=== PATIENT | female | born 1945 | race Caucasian/White ===

== ENCOUNTER → 2016-07-31 | Outpatient (CLI) | payer MEDICARE, OTHER ==
[2016-06-15 13:20] VITALS: BP 120/47
[~2016-07-31] MED LIST: ASPI81TA2 PO; BENA10TA2 PO; CALC-495 PO; CHOL5000 PO; FURO40TA4 PO; GABA-585 PO; METF10002 PO; METO50TA2 PO; MV,C1TAB19 PO; NAPR500T3 PO; OMEG1CAP6 PO; OMEP40CA5 PO; POTA20TA4 PO; PRAV40TA2 PO; SITA100T PO
--- NOTE | 2016-07-31 14:34 | RAD ---
Chest, 2 views, 07/31/2016: History: Shortness of breath Comparison is made to a study from 02/23/2007. The left ventricle is mildly prominent. There is calcific plaquing and tortuosity of the thoracic aorta. The pulmonary vascularity is normal. No pulmonary infiltrates are seen. There is no evidence of pleural fluid. Moderate spurring is present in the spine. IMPRESSION: 1. Left ventricular enlargement and aortic atherosclerosis. 2. No acute cardiopulmonary abnormality is detected.
== END | disposition home or self-care (01) ==
LOC: RAD 13:46
PROVIDERS: ATTEND Internal Medicine Cardiovascular Disease
DX: I25.10 Atherosclerotic heart disease of native coronary artery without angina pectoris (principal); I70.0 Atherosclerosis of aorta
CPT/HCPCS: 71020

== ENCOUNTER → 2017-01-29 | Outpatient (CLI) | payer MEDICARE, OTHER ==
[2016-06-15 13:20] VITALS: BP 120/47
[~2017-01-29] MED LIST changes: +ASPI-630 PO; -ASPI81TA2 PO; +METF-620 PO; -METF10002 PO
--- NOTE | 2017-01-29 15:43 | RAD ---
Left clavicle, 2 views, 01/29/2017: History: Clavicular lump No fracture or destructive bony lesion is seen. There is mild spurring at the acromioclavicular joint. There is a prominent subacromial spur. There is also mild spurring along the glenoid rim. IMPRESSION: 1. Hypertrophic degenerative change at the left shoulder as described above. 2. No acute bony abnormality is detected.
== END | disposition home or self-care (01) ==
LOC: RAD 14:50
PROVIDERS: ATTEND Nurse Practitioner Adult Health
DX: M89.8X9 Other specified disorders of bone, unspecified site (principal)
CPT/HCPCS: 73000

== ENCOUNTER → 2017-02-19 | Outpatient (CLI) | payer MEDICARE, OTHER ==
[2016-06-15 13:20] VITALS: BP 120/47
--- NOTE | 2017-02-19 14:33 | RAD ---
Radionuclide bone scan, 02/19/2017: History: Breast cancer, left clavicular mass Whole body imaging was performed following an IV injection of 25.0 mCi of technetium 99m MDP. Comparison is made to a study from 07/01/2006. The following findings are delineated: 1. There are photon deficient areas at both knees compatible with the presence of knee prostheses. 2. There is moderately increased activity at the right midfoot level similar to that seen on the previous study. This is likely arthritic in nature. 3. There is a mild thoracolumbar scoliosis. Several small foci of increased activity in the lower thoracic and upper lumbar spine are likely on a degenerative basis. 4. There is mildly increased activity symmetrically at both shoulders compatible with arthritis. 5. Activity the radionuclide about the skeleton the major joints is otherwise unremarkable. IMPRESSION: 1. Arthritic and postsurgical changes as described above. 2. No specific evidence of osseous metastatic disease.
== END | disposition home or self-care (01) ==
LOC: NM 08:52
PROVIDERS: ATTEND Internal Medicine Hematology & Oncology
DX: M89.312 Hypertrophy of bone, left shoulder (principal); C50.912 Malignant neoplasm of unspecified site of left female breast
CPT/HCPCS: 78306; 96374; A9503

== ENCOUNTER → 2017-02-23 | Outpatient (CLI) | payer MEDICARE, OTHER ==
[2016-06-15 13:20] VITALS: BP 120/47
[2017-02-23 10:53] LABS: CALCIUM 8.8 mg/dL (8.5-10.1); CREATININE 1.2 mg/dL (0.6-1.0); GFR 44.3; MAGNESIUM 1.5 mg/dL (1.8-2.4)
== END | disposition home or self-care (01) ==
LOC: LAB 10:06
PROVIDERS: ATTEND Internal Medicine Cardiovascular Disease
DX: I10 Essential (primary) hypertension (principal); I25.10 Atherosclerotic heart disease of native coronary artery without angina pectoris; E78.5 Hyperlipidemia, unspecified
CPT/HCPCS: 36415; 80048; 83735

== ENCOUNTER → 2017-06-10 | Outpatient (CLI) | payer MEDICARE, OTHER ==
[2016-06-15 13:20] VITALS: BP 120/47
[~2017-06-10] MED LIST changes: -METO50TA2 PO; +METO50TA6 PO; -NAPR500T3 PO; +NAPR500T4 PO
--- NOTE | 2017-06-10 16:34 | RAD ---
Bilateral lower extremity arterial ultrasound with JAY measurements, 06/10/2017: History: Calf claudication, peripheral vascular disease Duplex evaluation of the major arteries in both lower extremities was performed including grayscale, color-flow and spectral Doppler analysis. There is mild to moderate scattered atherosclerotic plaquing bilaterally The right common femoral artery demonstrates a triphasic Doppler waveform. There are biphasic Doppler waveforms in the right femoral and popliteal arteries. No significant focal velocity acceleration is seen in those vessels to suggest high-grade stenosis. Patent anterior tibial, peroneal and posterior tibial arteries are present in the right calf demonstrating biphasic Doppler waveforms. The right dorsalis pedis artery is patent demonstrating a biphasic Doppler waveform. On the left, the common femoral artery is patent demonstrating a triphasic Doppler waveform. There is a velocity elevation in the proximal superficial femoral artery in the upper thigh up to 197 cm/s. The femoral and popliteal arteries distal to this level maintain good biphasic Doppler waveforms. The findings suggest only mild stenosis. Patent anterior tibial, posterior tibial and peroneal arteries are present in the left lower leg demonstrating biphasic Doppler waveforms. The left dorsalis pedis artery is also patent demonstrating a biphasic Doppler waveform. Resting JAY measurements of 0.96 on the right and 1.06 on the left were obtained. These values are in the normal range. IMPRESSION: 1. Mild scattered atherosclerotic plaquing in both lower extremities without evidence of high-grade arterial stenosis or occlusive disease. 2. Normal resting JAY measurements bilaterally.
== END | disposition home or self-care (01) ==
LOC: US 10:27
PROVIDERS: ATTEND Podiatrist Foot & Ankle Surgery
DX: I73.9 Peripheral vascular disease, unspecified (principal)
CPT/HCPCS: 93922; 93925

== ENCOUNTER → 2018-04-12 | Outpatient (CLI) | payer MEDICARE, OTHER ==
[2016-06-15 13:20] VITALS: BP 120/47
[~2018-04-12] MED LIST changes: -BENA10TA2 PO; +BENA10TA4 PO; -METF-620 PO; +METF10007 PO; +NAPR-514 PO; -NAPR500T4 PO
--- NOTE | 2018-04-12 14:26 | KCIC ---
MR of the left shoulder Indication: Right shoulder pain and paresthesia. Anterior shoulder tenderness. Supraclavicular mass with adhesions to the skin. Technique: Standard multiplanar sequences are obtained. Findings: Artifact: No significant image degradation. Acromioclavicular joint: Mildly degenerative. Rotator cuff: * Supraspinatus-infraspinatus tendon: Full-thickness tear of the supraspinatus tendon measures about 5 mm AP diameter at least 1 cm retraction. Diffuse thinning of the remaining supraspinatus tendon. * Subscapularis tendon: Tendinosis with partial tear. * Muscle bulk: Moderate atrophy * Subacromial subdeltoid bursa: Small effusion. Fluid: Small glenohumeral effusion. Glenohumeral cartilage: Primary osteoarthritis with severe cartilage thinning. Labrum: Posterosuperior labral degeneration/tearing. Biceps tendon: Tendinosis Bones: No lesion or acute fracture. Soft tissue: Soft tissue mass just superior to the mid clavicle, measures 2.7 cm wide by 2.9 cm AP by 2.7 cm height. Has a solid appearance. Superiorly extends to near the skin surface. Deep aspect broadly contacts the clavicular cortex but there is no evidence of clavicular bone destruction or edema. The mass also contacts the surface of the margin of the trapezius muscle. There is thickening of the overlying skin. A very thin plane of subcutaneous fat separates the mass from the skin thickening. Note that the surface marker placed at the area of concern corresponds with the location of this mass. Impression: 1. Soft tissue mass superior to the mid clavicle. Nonspecific, but malignant etiologies including metastatic disease or soft tissue sarcoma are considerations. Thickening of the overlying skin. 2. Rotator cuff tendinosis. Tearing of the supraspinatus tendon with a small full-thickness component. Partial subscapularis tendon tear. 3. Severe primary osteoarthritis. 4. Posterosuperior labral degeneration/tear. Electronically signed by: Russell Sosa MD (04/12/2018 2:23 PM) [facility]
== END | disposition home or self-care (01) ==
LOC: KCIC MRI 12:26
PROVIDERS: ATTEND Family Medicine
DX: R22.1 Localized swelling, mass and lump, neck (principal); M19.011 Primary osteoarthritis, right shoulder; M75.101 Unspecified rotator cuff tear or rupture of right shoulder, not specified as traumatic; M62.511 Muscle wasting and atrophy, not elsewhere classified, right shoulder
CPT/HCPCS: 73221

== ENCOUNTER → 2018-04-21 | Outpatient (CLI) | payer MEDICARE, OTHER ==
[2016-06-15 13:20] VITALS: BP 120/47
--- NOTE | 2018-04-21 10:59 | RAD ---
FDG tumor localization scan, PET/CT, 04/21/2018: History: Shoulder mass Following IV injection of 13.3 mCi of 18 F-FDG, imaging was performed from the skull base to the proximal thighs. The noncontrast CT component was performed for attenuation correction and anatomic localization purposes rather than for primary diagnosis. The patient's blood glucose level at the time of injection was 186 MG/DL. The study is partially compromised by multiple artifacts. There is an irregular 3.3 cm soft tissue mass in the left supraclavicular region. It is hypermetabolic with a maximum SUV of 11.1. Physiologic activity is present in the neck. No other neck abnormality is evident. No hypermetabolic mediastinal or pulmonary process is seen. Both breasts are surgically absent. Normal GI tract and urinary tract activity is present in the abdomen and pelvis. No hypermetabolic abdominal or pelvic lesion is seen. Incidental CT findings include the presence of a lap band type device related to the proximal stomach. There is moderate sigmoid diverticulosis. The uterus appears to be surgically absent. There is moderate calcific plaquing of the aorta and its branches including the coronary arteries. Calcific plaquing is present at the carotid bifurcations. Moderate degenerative change is present at both shoulders and at multiple levels in the spine. IMPRESSION: 1. Hypermetabolic left supraclavicular mass, most likely representing metastatic disease in this patient with a history of breast cancer. 2. No other significant FDG-PET abnormality is detected.
== END | disposition home or self-care (01) ==
LOC: PETSC 08:11
PROVIDERS: ATTEND Family Medicine
DX: R22.1 Localized swelling, mass and lump, neck (principal); K57.30 Diverticulosis of large intestine without perforation or abscess without bleeding; Z85.3 Personal history of malignant neoplasm of breast
CPT/HCPCS: 78815; A9552

== ENCOUNTER 2018-04-26 08:29 | Outpatient (CLI) | payer MEDICARE, OTHER ==
[~2018-04-26] VITALS: Ht 167.6 cm; Wt 129.3 kg
[2018-04-26] VITALS (8 sets, daily range): BP systolic 109–146; BP diastolic 44–63
[2018-04-26] MEDS ORDERED: GLIM2TAB2 PO (08:36)
[2018-04-26 08:46] LABS: BASO # 0.1 x10^3/uL (0.0-0.2); BASO % 1 % (0-3); EOS # 0.4 x10^3/uL (0.0-0.7); EOS % 4 % (0-3); HEMOGLOBIN 12.7 g/dL (12.0-15.5); LYMPH # 2.3 x10^3/uL (1.0-4.8); LYMPH % 18 % (24-48); MEAN CORPUSCULAR HEMOGLOBIN 30 pg (25-35); MEAN CORPUSCULAR HGB CONC 33 g/dL (31-37); MEAN CORPUSCULAR VOLUME 91 fL (79-100); MONO # 0.8 x10^3/uL (0.0-1.1); MONO % 6 % (0-9); NEUT # 8.8 x10^3uL (1.8-7.7); NEUT % 71 % (31-73); PLATELET COUNT 323 x10^3/uL (140-400); RED BLOOD COUNT 4.19 x10^6/uL (3.50-5.40); RED CELL DISTRIBUTION WIDTH 14.8 % (11.5-14.5); WHITE BLOOD COUNT 12.4 x10^3/uL (4.0-11.0)
[2018-04-26 08:52] LABS: CALCIUM 8.6 mg/dL (8.5-10.1); CREATININE 1.4 mg/dL (0.6-1.0); POTASSIUM 4.7 mmol/L (3.5-5.1)
[2018-04-26 08:58] LABS: ALBUMIN 2.9 g/dL (3.4-5.0); ALBUMIN/GLOBULIN RATIO 0.7 (1.0-1.7); TOTAL BILIRUBIN 0.5 mg/dL (0.2-1.0); TOTAL PROTEIN 7.1 g/dL (6.4-8.2)
[2018-04-26] MEDS ORDERED: LIDOCAINE WITH 8.4% SOD BICARB 3 ML DISP.SYRIN. ONE (09:10)
[2018-04-26] MEDS ORDERED: MIDAZOLAM HCL/PF 2 MG/2 ML VIAL. ONE (09:24)
[2018-04-26] MEDS ORDERED: fentaNYL PF VIAL 100 MCG/2 ML VIAL ONE (09:25)
[2018-04-26] MEDS ORDERED: MIDAZOLAM HCL/PF 2 MG/2 ML VIAL. IV ONE (09:45)
[2018-04-26] MEDS ORDERED: LIDOCAINE WITH 8.4% SOD BICARB 3 ML DISP.SYRIN. IJ ONE (09:45)
[2018-04-26] MEDS ORDERED: fentaNYL PF VIAL 100 MCG/2 ML VIAL IV ONE (09:45)
--- NOTE | 2018-04-26 09:47 | PDOC ---
MODERATE SEDATION ASSESSMENT RISKS/ALTERNATIVES Risks/Alternatives Risks and alternatives of this type of sedation and procedure discussed with: RISK/ALTERNATIVES: Patient H & P ON CHART H & P H & P on chart and reviewed for co-morbid conditions and appropriate labs. H&P ON CHART: Yes STATUS PREG STATUS ASSESSED: Yes MEDS/ALLERGIES REVIEWED Meds/Allergies Reviewed Medications and Allergies including time and route of recently administered narcotics and sedatives. MEDS/ALLERGIES REVIEWED: Yes ASA RATING ASA RATING: II AIRWAY ASSESSMENT Airway Assessment Airway patency, oral function limitations, presence of caps, crowns, dentures, partials, and ability to extend neck assessed. AIRWAY ASSESSMENT: Yes MALLAMPATI SCORE MALLAMPATI SCORE: II PRE-SEDATION ASSESSMENT PRE-SEDATION ASSESSMENT: Yes DIANE MCARTHUR MD Apr 26, 2018 09:47
--- NOTE | 2018-04-26 09:48 | PDOC1 ---
History and Physical Date of Procedure Date of Admission History of Present Illness Reason for Visit H/o breast cancer with enlarging left supraclavicular mass Past Medical History Past Medical History see nursing pre-op assessment Current Medications Current Medications Current Medications Lidocaine/Sodium Bicarbonate (Buffered Lidocaine 1%) 3 ml STK-MED ONCE .ROUTE ; Start 04/26/18 at 09:10; Stop 04/26/18 at 09:11; Status DC Midazolam HCl (Versed) 2 mg STK-MED ONCE .ROUTE ; Start 04/26/18 at 09:24; Stop 04/26/18 at 09:25; Status DC Fentanyl Citrate (Fentanyl 2ml Vial) 100 mcg STK-MED ONCE .ROUTE ; Start at 09:25; Stop 04/26/18 at 09:26; Status DC Lidocaine/Sodium Bicarbonate (Buffered Lidocaine 1%) 1 ml 1X ONCE IJ Last administered on 04/26/18at 09:44; Start 04/26/18 at 09:45; Stop 04/26/18 at 09 :46 Midazolam HCl (Versed) 1 mg 1X ONCE IV Last administered on 04/26/18at 09:45; Start 04/26/18 at 09:45; Stop 04/26/18 at 09:46 Fentanyl Citrate (Fentanyl 2ml Vial) 50 mcg 1X ONCE IV Last administered on at 09:44; Start 04/26/18 at 09:45; Stop 04/26/18 at 09:46; Status UNV Active Scripts Active Reported Glimepiride 2 Mg Tablet 1 Tab PO DAILY Calcium 600 + Vit D 800 Tab (Calcium Carbonate/Vitamin D3) 1 Each Tablet 1 Each PO DAILY Fish Oil 1,000 Mg Capsule ([place]-3 Fatty Acids/Fish Oil) 1 Each Capsule 1 Each PO DAILY Vitamin D3 (Cholecalciferol (Vitamin D3)) 5,000 Unit Capsule 2,000 Unit PO DAILY Multi For Her Tablet (Mv,Ca,Min/Iron Fum/Fa/Vit K) 1 Each Tablet 1 Each PO DAILY Naproxen 500 Mg Tablet 500 Mg PO BID Aspirin 81 Mg Tab.chew 81 Mg PO DAILY Benazepril Hcl 10 Mg Tablet 10 Mg PO DAILY Metformin Hcl 1,000 Mg Tablet 1,000 Mg PO BID may resume 06/17/16 with the evening dose. Furosemide 40 Mg Tablet 40 Mg PO DAILY Klor-Con M20 (Potassium Chloride) 20 Meq Tab.er.prt 20 Meq PO DAILY Pravastatin Sodium 40 Mg Tablet 1 Tab PO QHS Gabapentin 100 Mg Capsule 300 Mg PO DAILY 2 morning/1 night Metoprolol Tartrate 50 Mg Tablet 50 Mg PO BID Omeprazole 40 Mg Capsule.dr 40 Mg PO DAILY Allergies Allergies: Coded Allergies: Sulfa (Sulfonamide Antibiotics) (Verified Allergy, Intermediate, 04/26/18) codeine (Verified Allergy, Intermediate, 10/04/14) Physical Exam Vital Signs Vital Signs Date Time Temp Pulse Resp B/P (MAP) Pulse Ox O2 Delivery O2 Flow Rate FiO2 04/26/18 09:44 14 94 2.0 04/26/18 09:36 76 Nasal Cannula 04/26/18 08:41 98.1 146/61 (89) 98.1 Other see nursing pre-op assessment Assessment Assessment breast cancer and supraclavicular mass - left Plan Plan US biopsy of supraclavicular mass DIANE MCARTHUR MD Apr 26, 2018 09:48
--- NOTE | 2018-04-26 09:49 | PDOC ---
BRIEF OPERATIVE NOTE Pre-Op Diagnosis left supraclavicular mass Post-Op Diagnosis same Procedure Performed US biopsy Surgeon Scottie Anesthesia Type: Conscious Sedation Specimens Obtained 5 x 18g cores Complications No immediate DIANE MCARTHUR MD Apr 26, 2018 09:49
--- NOTE | 2018-04-26 14:00 | RAD ---
Procedure: Ultrasound guided left supraclavicular biopsy Clinical Indication: 72-year-old female with history of breast cancer, enlarging left supraclavicular soft tissue mass Sedation: Conscious sedation was administered with a total intraprocedural [id number]-[id number] time of 13 minutes. The patient was monitored by a qualified independent observer throughout the time of sedation. Please refer to the medical record for exact doses of medications utilized to achieve moderate sedation. Antibiotics: None Sterility: The procedure was performed in its entirety using appropriate elements of sterile technique. Consent: The procedure was explained in its entirety to the patient or the patients designated veterans contact representative by a member of the treatment team, including a discussion of the risks, benefits and commonly accepted alternatives to the procedure, as well as the expected consequences of no therapy whatsoever. Discussion of the risks included, but was not limited to, those that are most frequent and those that are rare but possibly severe or life-threatening, as well as the possibility of unforeseen complications. Technique and Findings: Following informed consent, the patient was prepped and draped in usual sterile fashion. 1% lidocaine was used to achieve local anesthesia over the left supra clavicular soft tissue mass. A small dermatotomy was made. Under ultrasound guidance, an 18-gauge needle was advanced into the soft tissue mass and 5 separate core biopsy specimens were obtained and divided between formalin and RPMI. Hemostasis was achieved with annual compression following removal of the needle. Complications: No immediate Impression: 1. Ultrasound-guided biopsy of a left supraclavicular mass as described
--- NOTE | 2018-04-28 16:09 | PATHOLOGY ---
[facility] Accession Number: [id number] . 01 Material submitted: . LEFT SUPRACLAVICULAR MASS . 01 Clinical history: . Left supraclavicular mass . 02 Diagnosis: Fibroadipose tissue, left supraclavicular mass needle biopsies: - METASTATIC ADENOCARCINOMA, MODERATELY TO POORLY DIFFERENTIATED. SEE COMMENT. (JPM:zaria/pit; 04/27/2018) QMS/04/28/2018 . 02 Comment: Sections of the left supraclavicular mass needle biopsies reveal a malignant epithelial neoplasm involving segments of fibroadipose tissue. There is no obvious lymph node tissue identified. The malignant cells are present in irregular solid nests and focally appear to show acinar formation. The malignant cells have modest amounts of eosinophilic cytoplasm and possess rounded to ovoid hyperchromatic nuclei showing moderate to focal marked nuclear pleomorphism. A limited panel of immunoperoxidase stains is obtained and yields the following results: . Cytokeratin 7: Tumor cells strongly positive. Cytokeratin 20: Tumor cells negative: TTF-1: Tumor cells negative. BCA-225: Rare tumor cell weakly positive. GCDFP-15: Tumor cells negative. Mammaglobin: Tumor cells negative. . The morphologic and immunophenotypic findings are supportive of the diagnosis of metastatic moderately to poorly differentiated adenocarcinoma and are consistent with breast origin. . The case is also examined by Dr. Menjivar, who concurs with the diagnosis. (JPM:zaria/pit; 04/27/2018) . Special stains performed: Immunoperoxidase for CK7, CK20, TTF-1, BCA-225, GCDFP-15 and mammaglobin. . 02 Electronically signed: . Jus Rea MD, Pathologist NPI- [id number] . 01 Gross description: . The specimen is received in formalin, labeled "Chastity Doherty, left supraclavicular mass" and consists of multiple needle cores of dent tissue measuring 1.9 x 0.6 x 0.1 cm in aggregate which are entirely submitted in A1. (SDY; 04/26/2018) SYU/SYU . 02 Microscopic: . . . 02 Pathologist provided ICD-10: C79.89 . 02 CPT . 369106, B20033, [id number] Specimen Comment: A courtesy copy of this report has been sent to Specimen Comment: [phone], , . Specimen Comment: Report sent to ,DR DEVINE / DR FINE Performed at: 01 [facility] [address], [place] [id number] MD German Wiggins MD Phone: [phone] Performed at: 02 [facility] [address] [place], [place] [id number] MD Jus Rea MD Phone: [phone]
[2018-05-12] MEDS ORDERED: HYDR-2758 PO (08:27)
[2018-05-12] MEDS ORDERED: BENA20TA4 PO (08:41)
[2018-05-12] MEDS ORDERED: ASPI81TA50 PO (08:41)
== END 2018-04-26 11:05 | disposition home or self-care (01) ==
LOC: INTRAD 08:29
PROVIDERS: ATTEND Internal Medicine Hematology & Oncology
DX: M79.89 Other specified soft tissue disorders (principal); Z88.1 Allergy status to other antibiotic agents; Z88.5 Allergy status to narcotic agent; Z85.3 Personal history of malignant neoplasm of breast; Z79.899 Other long term (current) drug therapy
CPT/HCPCS: 20206; 36415; 76942; 80053; 85025; 85610; 99152; J2250; J3010; 88305; 88341; 88342

== ENCOUNTER 2018-07-19 06:52 | Outpatient (CLI) | payer MEDICARE, OTHER ==
[~2018-07-19] VITALS: Ht 165.1 cm; Wt 131.5 kg
[~2018-07-19 06:52] MED LIST changes: +ASPI81TA50 PO; -BENA10TA4 PO; +BENA10TA6 PO; +BENA20TA4 PO; +GLIM2TAB2 PO; +HYDR-2761 PO
[2018-07-19] MEDS ORDERED: OMEP40CA5 PO (07:16)
[2018-07-19 07:21] LABS: BASO # 0.1 x10^3/uL (0.0-0.2); BASO % 1 % (0-3); EOS # 0.3 x10^3/uL (0.0-0.7); EOS % 3 % (0-3); HEMATOCRIT 37.3 % (36.0-47.0); HEMOGLOBIN 12.5 g/dL (12.0-15.5); LYMPH # 1.4 x10^3/uL (1.0-4.8); LYMPH % 14 % (24-48); MEAN CORPUSCULAR HEMOGLOBIN 31 pg (25-35); MEAN CORPUSCULAR HGB CONC 34 g/dL (31-37); MEAN CORPUSCULAR VOLUME 91 fL (79-100); MONO # 0.7 x10^3/uL (0.0-1.1); MONO % 7 % (0-9); NEUT # 7.6 x10^3uL (1.8-7.7); NEUT % 76 % (31-73); PLATELET COUNT 284 x10^3/uL (140-400); RED BLOOD COUNT 4.09 x10^6/uL (3.50-5.40); RED CELL DISTRIBUTION WIDTH 15.7 % (11.5-14.5)
[2018-07-19] MEDS ORDERED: ceFAZolin SODIUM 3 GM in IV DEXTROSE 5% 100ML 100 ML IV ONE (07:30)
[2018-07-19 07:35] LABS: CALCIUM 8.8 mg/dL (8.5-10.1); CREATININE 1.2 mg/dL (0.6-1.0); GFR 44.2; POTASSIUM 4.3 mmol/L (3.5-5.1)
[2018-07-19 07:37] VITALS: BP 122/49
[2018-07-19 07:38] LABS: PROTHROMBIN TIME PATIENT 13.8 SEC (11.7-14.0)
[2018-07-19 07:41] LABS: ALBUMIN 2.7 g/dL (3.4-5.0); ALBUMIN/GLOBULIN RATIO 0.6 (1.0-1.7); TOTAL BILIRUBIN 0.4 mg/dL (0.2-1.0); TOTAL PROTEIN 6.9 g/dL (6.4-8.2)
[2018-07-19] MEDS ORDERED: LIDOCAINE 1%/EPI 1:100,000 20 ML VIAL. ONE (07:52)
[2018-07-19] MEDS ORDERED: MIDAZOLAM HCL/PF 2 MG/2 ML VIAL. ONE (08:27)
[2018-07-19] MEDS ORDERED: fentaNYL PF VIAL 100 MCG/2 ML VIAL ONE (08:27)
[2018-07-19] MEDS ORDERED: fentaNYL PF VIAL 100 MCG/2 ML VIAL IV ONE (08:45)
[2018-07-19] MEDS ORDERED: MIDAZOLAM HCL/PF 2 MG/2 ML VIAL. IV ONE (08:45)
[2018-07-19] MEDS ORDERED: LIDOCAINE 1%/EPI 1:100,000 20 ML VIAL. IJ ONE (08:45)
[2018-07-19 09:02] VITALS: BP 134/62
[2018-07-19 09:10] VITALS: BP 140/68
[2018-07-19 09:25] VITALS: BP 135/50
[2018-07-19 09:40] VITALS: BP 85/55
[2018-07-19 10:00] VITALS: BP 108/84
--- NOTE | 2018-07-19 10:17 | NUR ---
Pt discharged via wheelchair with spouse. Instructions and education reviewed with patient including medications, site care, s/s requiring further attention, and follow up. Education materials given to patient include port placement and post sedation. IV removed, patient states v/u of all instructions.
--- NOTE | 2018-07-19 11:23 | RAD ---
Procedure: Ultrasound and fluoroscopically guided placement of right internal jugular power port.. 07/19/2018 11:18 AM Clinical Indication: BREAST CA Sedation: Conscious sedation was administered for 30 minutes. The patient was monitored by a qualified independent observer throughout the time of sedation. Please refer to the medical record for exact doses of medications utilized to achieve moderate sedation. Fluoroscopy time: 0.6 minutes Dose area product: 4 Gycm2 Consent: The procedure was explained in its entirety to the patient or the patients designated human resources representative by a member of the treatment team, including a discussion of the risks, benefits and commonly accepted alternatives to the procedure, as well as the expected consequences of no therapy whatsoever. Discussion of the risks included, but was not limited to, those that are most frequent and those that are rare but possibly severe or life-threatening, as well as the possibility of unforeseen complications. Technique and Findings: All elements of maximal sterile barrier technique including the use of a cap, mask, sterile gown, sterile gloves, large sterile sheet, appropriate hand hygiene, and 2% chlorhexidine for cutaneous antisepsis (or acceptable alternative antiseptic per current guidelines) were followed for this procedure. Following informed consent, and a timeout procedure, the patient was prepped and draped in the usual sterile fashion. Ultrasound interrogation of the right neck revealed patency and compressibility of the right internal jugular vein. A 21-gauge micropuncture was then used to gain access to this vein under ultrasound guidance. A hard copy ultrasound image was recorded. The needle was exchanged over a wire for a sheath. A 1 inch incision was made several centimeters inferior to the venotomy site. A catheter was tunneled from this site dermatotomy site in the neck. Catheter was advanced through peel-away sheath such that its tip was in the proximal right atrium with the patient supine. The catheter was trimmed to length and connected to the port reservoir. The port was found to flush and aspirate normally. The wound was closed in layers using 4-0 Vicryl suture. Sterile dressings were applied. Impression: Successful ultrasound and fluoroscopically guided placement of a right internal jugular PowerPort
[2018-07-30] MEDS ORDERED: IPRA0.2S5 NEB (09:05)
[2018-07-30] MEDS ORDERED: BENZ100C PO (09:05)
[2018-07-30] MEDS ORDERED: AMOX1TAB61 PO (09:05)
== END 2018-07-19 10:15 | disposition home or self-care (01) ==
LOC: INTRAD 06:52
PROVIDERS: ATTEND Internal Medicine Hematology & Oncology
DX: C50.812 Malignant neoplasm of overlapping sites of left female breast (principal); Z88.2 Allergy status to sulfonamides; Z88.5 Allergy status to narcotic agent; Z17.1 Estrogen receptor negative status [ER-]; Z79.01 Long term (current) use of anticoagulants; Z79.82 Long term (current) use of aspirin; Z79.899 Other long term (current) drug therapy
CPT/HCPCS: 36415; 36561; 76937; 77001; 80053; 85025; 85610; 99152; 99153; C1788; C1892; J0690; J2250; J3010; J3490; C1751

== ENCOUNTER 2018-09-16 11:57 | Inpatient (IN) | payer MEDICARE, OTHER ==
[~2018-09-16] VITALS: Ht 170.2 cm; Wt 128.6 kg
[~2018-09-16 11:57] MED LIST changes: +AMOX1TAB61 PO; +BENA10TA4 PO; -BENA10TA6 PO; +BENZ100C PO; +IPRA0.2S5 NEB
--- NOTE | 2018-09-16 12:26 | PHYS DOC ---
Past Medical History Past Medical History: Cancer, Diabetes-Type II, High Cholesterol, Hypertension Additional Past Medical Histor: TORN ROTATOR CUFF RIGHT SIDE Past Surgical History: Appendectomy, Cholecystectomy, Hysterectomy Additional Past Surgical Histo: BILATERAL MASTECTOMY Alcohol Use: None Drug Use: None Adult General Chief Complaint Chief Complaint: HYPOTENSION HPI HPI Patient is a 73 year old female with history of breast cancer metastatic with a double mastectomy status post chemotherapy last dose last week referred in from oncology clinic blood pressure 72/38 has felt lightheaded the last 2 or 3 days hemoglobin 12.1 yesterday no fever in the clinic as BP normally runs 100- 120 according to the oncology clinic provider that called me. Patient has had some mild nausea and decreased by mouth intake just not hungry no chest pain no abdominal pain does have chronic back pain which is unchanged Review of Systems Review of Systems Constitutional: Eyes: Denies change in visual acuity, redness, or eye pain [] HENT: Denies nasal congestion or sore throat [] Respiratory: Denies cough or shortness of breath [] Cardiovascular: No additional information not addressed in HPI []neg for nausea , vomiting, bloody stools or diarrhea [] : Denies dysuria or hematuria [] Neurologic: mild intermittent h/a Endocrine: Denies polyuria or polydipsia [] All other systems were reviewed and found to be within normal limits, except as documented in this note. Current Medications Current Medications Current Medications Medications (Trade) Dose Ordered Sig/Lily Start Time Stop Time Status Last Admin Dose Admin Sodium Chloride 1,000 ml @ 1,000 mls/hr 1X ONCE 09/16/18 12:30 09/16/18 13:29 DC 09/16/18 12:55 1,000 MLS/HR Allergies Allergies Allergies Coded Allergies Type Severity Reaction Last Updated Verified Sulfa (Sulfonamide Antibiotics) Allergy Intermediate 04/26/18 Yes codeine Allergy Intermediate 10/04/14 Yes Physical Exam Physical Exam Constitutional: Well developed, well nourished, no acute distress, non-toxic appearance. [] HENT: Normocephalic, atraumatic, bilateral external ears normal, oropharynx moist, no oral exudates, nose normal. [] Eyes: PERRLA, EOMI, conjunctiva normal, no discharge. [] Neck: Normal range of motion, no tenderness, supple, no stridor. [] Cardiovascular:Heart rate regular rhythm, no murmur [] Lungs & Thorax: DECREASED BREATH SOUNDS B/L BASES Abdomen: Bowel sounds normal, soft, no tenderness, no masses, no pulsatile masses. [] Skin: Warm, dry, no erythema, no rash. [] the port site looks fine Back: No tenderness, no CVA tenderness. [] Extremities: No tenderness, no cyanosis, no clubbing, ROM intact, no edema. [] Neurologic: Alert and oriented X 3, normal motor function, normal sensory function, no focal deficits noted. [] Psychologic: Affect normal, judgement normal, mood normal. [] Current Patient Data Vital Signs Vital Signs Date Time Temp Pulse Resp B/P (MAP) Pulse Ox O2 Delivery O2 Flow Rate FiO2 09/16/18 13:07 80 111/53 (72) 93 Room Air 09/16/18 11:57 97.7 18 97.7 Lab Values Laboratory Tests Test 09/16/18 12:55 White Blood Count 4.2 x10^3/uL (4.0-11.0) Red Blood Count 3.64 x10^6/uL (3.50-5.40) Hemoglobin 11.2 g/dL (12.0-15.5) L Hematocrit 34.1 % (36.0-47.0) L Mean Corpuscular Volume 94 fL (79-100) Mean Corpuscular Hemoglobin 31 pg (25-35) Mean Corpuscular Hemoglobin Concent 33 g/dL (31-37) Red Cell Distribution Width 15.5 % (11.5-14.5) H Platelet Count 362 x10^3/uL (140-400) Neutrophils (%) (Auto) 66 % (31-73) Lymphocytes (%) (Auto) 15 % (24-48) L Monocytes (%) (Auto) 8 % (0-9) Eosinophils (%) (Auto) 9 % (0-3) H Basophils (%) (Auto) 1 % (0-3) Neutrophils # (Auto) 2.8 x10^3uL (1.8-7.7) Lymphocytes # (Auto) 0.6 x10^3/uL (1.0-4.8) L Monocytes # (Auto) 0.3 x10^3/uL (0.0-1.1) Eosinophils # (Auto) 0.4 x10^3/uL (0.0-0.7) Basophils # (Auto) 0.1 x10^3/uL (0.0-0.2) Prothrombin Time 15.1 SEC (11.7-14.0) H Prothrombin Time INR 1.2 (0.8-1.1) H Sodium Level 141 mmol/L (136-145) Potassium Level 4.1 mmol/L (3.5-5.1) Chloride Level 101 mmol/L (98-107) Carbon Dioxide Level 28 mmol/L (21-32) Anion Gap 12 (6-14) Blood Urea Nitrogen 23 mg/dL (7-20) H Creatinine 1.4 mg/dL (0.6-1.0) H Estimated GFR (Cockcroft-Gault) 36.9 BUN/Creatinine Ratio 16 (6-20) Glucose Level 133 mg/dL (70-99) H Lactic Acid Level 4.0 mmol/L (0.4-2.0) *H Calcium Level 8.9 mg/dL (8.5-10.1) Total Bilirubin 0.3 mg/dL (0.2-1.0) Aspartate Amino Transferase (AST) 17 U/L (15-37) Alanine Aminotransferase (ALT) 16 U/L (14-59) Alkaline Phosphatase 57 U/L (46-116) Creatine Kinase 23 U/L (26-192) L Troponin I Quantitative < 0.017 ng/mL (0.000-0.055) Total Protein 6.4 g/dL (6.4-8.2) Albumin 2.5 g/dL (3.4-5.0) L Albumin/Globulin Ratio 0.6 (1.0-1.7) L Lipase 169 U/L (73-393) Procalcitonin < 0.10 ng/mL (0.00-0.10) Influenza Type A Antigen Negative (NEGATIVE) Influenza Type B Antigen Negative (NEGATIVE) Laboratory Tests 09/16/18 12:55 Laboratory Tests 09/16/18 12:55 EKG EKG []EKG shows a normal sinus rhythm rate of RBBBt block rate of 76 no STEMI in light of that. Radiology/Procedures Radiology/Procedures [] Impressions: ATELECTATIS PER RADIOLOGY MY READ OVERALL PRETTY SIMILAR TO RECENT XRAY WITH PNA Course & Med Decision Making Course & Med Decision Making Pertinent Labs and Imaging studies reviewed. (See chart for details) []73 yo f with hx of breast cancer s/p double mastectomy on chemo p/w lightheadedness bp 72 syst in clinic here 111 while lying flat feels asymptomatic, sounds orthostatic get septic workup iv fluids, will reassess FINAL PLAN LACTIC ELEV BUT PT IS FAIRLY ASYMPTOMTIC IN ER, BP IN 110'S FOR THE MOST PART CXR BORDERLINE WILL GIVE ABX GIVEN LACTIC AND HER HISTORY D/W FULBRIGHT WILL ADMIT FOR ABX AND FLUIDS. Dragon Disclaimer Dragon Disclaimer This electronic medical record was generated, in whole or in part, using a voice recognition dictation system. Departure Departure Impression: Primary Impression: Lactic acidosis Disposition: ADMITTED INPATIENT Admitting Physician: Javier Cardoso Condition: STABLE Referrals: GLENIS DEVINE MD (PCP) CAMMY HUMPHREY MD Sep 16, 2018 12:26
--- NOTE | 2018-09-16 12:26 | EKG ---
[facility] [address] [place] [address] Test Date: 2018-09-16 Test Time: 12:13:44 Pat Name: BRITT LAMBERT Department: Room: Gender: F Bottom Painter: : 1945 Requested By: CAMMY HUMPHREY Order Number: [id number] Reading MD: Mac Romo MD Measurements Intervals Finger Rate: 76 P: -17 MI: 188 QRS: -33 QRSD: 138 T: -7 QT: 402 QTc: 452 Interpretive Statements SINUS RHYTHM RBBB Electronically Signed On 09-22-2018 13:55:50 CDT by Mac Romo MD
[2018-09-16] MEDS ORDERED: IV NORMAL SALINE 1000ML BAG 1,000 ML IV ONE ×2 (12:30→14:45)
--- NOTE | 2018-09-16 12:48 | RAD ---
EXAM: Chest, single view. HISTORY: Shortness of breath. Weakness. COMPARISON: 07/29/2018 FINDINGS: A frontal view of the chest is obtained. There has been slight interval decrease in previously demonstrated interstitial opacity. There is suspected basilar atelectasis. There is no pleural effusion or pneumothorax. There is a stable prominent cardiac silhouette. There is a right chest wall port catheter in expected position. IMPRESSION: Suspected bilateral lower lobe atelectasis. Electronically signed by: Lorena Felix MD (09/16/2018 12:45 PM) [id number]
[2018-09-16 13:19] LABS: BASO # 0.1 x10^3/uL (0.0-0.2); BASO % 1 % (0-3); EOS # 0.4 x10^3/uL (0.0-0.7); EOS % 9 % (0-3); HEMATOCRIT 34.1 % (36.0-47.0); HEMOGLOBIN 11.2 g/dL (12.0-15.5); LYMPH # 0.6 x10^3/uL (1.0-4.8); LYMPH % 15 % (24-48); MEAN CORPUSCULAR HEMOGLOBIN 31 pg (25-35); MEAN CORPUSCULAR HGB CONC 33 g/dL (31-37); MEAN CORPUSCULAR VOLUME 94 fL (79-100); MONO # 0.3 x10^3/uL (0.0-1.1); MONO % 8 % (0-9); NEUT # 2.8 x10^3uL (1.8-7.7); NEUT % 66 % (31-73); PLATELET COUNT 362 x10^3/uL (140-400); RED BLOOD COUNT 3.64 x10^6/uL (3.50-5.40); RED CELL DISTRIBUTION WIDTH 15.5 % (11.5-14.5); WHITE BLOOD COUNT 4.2 x10^3/uL (4.0-11.0)
[2018-09-16 13:28] LABS: CALCIUM 8.9 mg/dL (8.5-10.1); CREATININE 1.4 mg/dL (0.6-1.0); GFR 36.9; POTASSIUM 4.1 mmol/L (3.5-5.1)
[2018-09-16 13:34] LABS: ALBUMIN 2.5 g/dL (3.4-5.0); ALBUMIN/GLOBULIN RATIO 0.6 (1.0-1.7); TOTAL BILIRUBIN 0.3 mg/dL (0.2-1.0); TOTAL PROTEIN 6.4 g/dL (6.4-8.2)
[2018-09-16 13:41] LABS: PROTHROMBIN TIME PATIENT 15.1 SEC (11.7-14.0)
[2018-09-16 13:45] LABS: INFLUENZA A PATIENT NEGATIVE (NEGATIVE); INFLUENZA B PATIENT NEGATIVE (NEGATIVE)
[2018-09-16] MEDS ORDERED: VANCOMYCIN PER PHARMACY MC PRN (14:45)
[2018-09-16] MEDS ORDERED: PIPERACILLIN/TAZOBACTAM 3.375 GM in IV NORMAL SALINE 50ML 50 ML IV ONE (14:45)
--- NOTE | 2018-09-16 14:49 | PDOC1 ---
History and Physical Date of Admission Date of Admission DATE: 09/16/18 TIME: 14:49 Identification/Chief Complaint Chief Complaint SEEN IN ER 73 year old female with history of breast cancer metastatic with a double mastectomy status post chemotherapy last dose last week referred in from oncology clinic blood pressure 72/38 TODAY has felt lightheaded the last 2 or 3 days hemoglobin 12.1 yesterday no fever in the clinic as BP normally runs 100-120 according to the oncology clinic provider has felt dizzy today, weak and hypotensive in office visit today for chemotherapy/// IS IMMUNOCOMPROMISED Past Medical History Past Medical History PAST MEDICAL HISTORY: Breast cancer , hyperlipidemia, history of left breast cancer in 1990 and the recurrent left breast cancer in 09/2006, treated with chemotherapy. She was diagnosed with another recurrence in 2018 when she had a soft tissue mass superior to the mid clavicle noted on an MRI on 04/12/2018. Biopsy of the left supraclavicular mass on 04/26/2018 revealed metastatic adenocarcinoma of breast origin. hx hypertension, gallstones, diabetes mellitus. SOCIAL HISTORY: Former smoker for 22 pack years. FAMILY HISTORY: Negative for malignancy. Heme/Onc: Cancer Hepatobiliary: No pertinent hx Psych: No pertinent hx Rheumatologic: No pertinent hx Endocrine: Diabetes Family History Family History: Hypertension Social History Smoke: Quit ALCOHOL: none Drugs: None Current Problem List Problem List Problems Medical Problems: (1) Lactic acidosis Status: Acute Current Medications Current Medications Current Medications Sodium Chloride 1,000 ml @ 1,000 mls/hr 1X ONCE IV Last administered on at 12:55; Start 09/16/18 at 12:30; Stop 09/16/18 at 13:29; Status DC Vancomycin HCl (Vanco Per Pharmacy) 1 each PRN DAILY PRN MC SEE COMMENTS; Start 09/16/18 at 14:45; Status UNV Piperacillin Sod/ Tazobactam Sod 3.375 gm/Sodium Chloride 50 ml @ 100 mls/hr 1X ONCE IV ; Start 09/16/18 at 14:45; Stop 09/16/18 at 15:14 Sodium Chloride 1,000 ml @ 125 mls/hr Q8H IV ; Start 09/16/18 at 14:36; Stop at 14:35 Sodium Chloride 1,000 ml @ 1,000 mls/hr 1X ONCE IV ; Start 09/16/18 at 14:45; Stop 09/16/18 at 15:44 Vancomycin HCl 2 gm/Sodium Chloride 500 ml @ 250 mls/hr 1X ONCE IV ; Start at 15:00; Stop 09/16/18 at 16:59 Active Scripts Active Tessalon Perle (Benzonatate) 100 Mg Capsule 1 Cap PO TID Augmentin 875-125 Tablet (Amoxicillin/Potassium Clav) 1 Each Tablet 1 Tab PO BID Ipratropium [place] 0.2 Mg/1 Ml Solution 0.5 Mg NEB RTQID MDD 1 Reported Omeprazole 40 Mg Capsule. 1 Cap PO DAILY Aspir-Low (Aspirin) 81 Mg Tablet. 81 Mg PO DAILY Benazepril Hcl 20 Mg Tablet 10 Mg PO DAILY Hydrocodone-Apap 5-325 (Hydrocodone Bit/Acetaminophen) 1 Each Tablet 1 Tab PO PRN Q6HRS PRN Glimepiride 2 Mg Tablet 1 Tab PO DAILY Calcium 600 + Vit D 800 Tab (Calcium Carbonate/Vitamin D3) 1 Each Tablet 1 Each PO DAILY Fish Oil 1,000 Mg Capsule ([place]-3 Fatty Acids/Fish Oil) 1 Each Capsule 1 Each PO DAILY Metformin Hcl 1,000 Mg Tablet 1,000 Mg PO BID Furosemide 40 Mg Tablet 40 Mg PO DAILY Klor-Con M20 (Potassium Chloride) 20 Meq Tab.er.prt 20 Meq PO DAILY Pravastatin Sodium 40 Mg Tablet 1 Tab PO QHS Gabapentin (Gabapentin) 100 Mg Capsule 300 Mg PO TID Metoprolol Tartrate 50 Mg Tablet 50 Mg PO BID Allergies Allergies: Coded Allergies: Sulfa (Sulfonamide Antibiotics) (Verified Allergy, Intermediate, 04/26/18) codeine (Verified Allergy, Intermediate, 10/04/14) ROS Review of System Review of Systems Review of Systems Constitutional: generally weak and dizzy Eyes: Denies change in visual acuity, redness, or eye pain [] HENT: Denies nasal congestion or sore throat [] Respiratory: Denies cough or shortness of breath [] Cardiovascular: No additional information not addressed in HPI []neg for nausea , vomiting, bloody stools or diarrhea [] : Denies dysuria or hematuria [] Neurologic: mild intermittent h/a Endocrine: Denies polyuria or polydipsia [] right bunion is very painful 14 pt systems were reviewed and found to be within normal limits, except as documented . General: YES: Fatigue PSYCHOLOGICAL ROS: No: Anxiety, Behavioral Disorder, Concentration difficultie , Decreased libido, Depression, Disorientation, Hallucinations, Hostility, Irritablity, Memory difficulties, Mood Swings, Obsessive thoughts, Physical abuse, Sexual abuse, Sleep disturbances, Suicidal ideation, Other Hematological and Lymphatic: No: Bleeding Problems, Blood Clots, Blood Transfusions, Brusing, Night Sweats, Pallor, Swollen Lymph Nodes, Other Respiratory: YES: Shortness of breath Gastrointestinal: Yes Nausea Musculoskeletal: Yes Joint Pain, Yes Joint Stiffness, Yes Joint Swelling Neurological: Yes Dizziness; No Behavorial Changes, No Bowel/Bladder ControlChng, No Confusion, No Gait Disturbance, No Headaches, No Impaired Coord/balance, No Memory Loss, No Numbness/Tingling, No Seizures, No Speech Problems, No Tremors, No Visual Changes, No Weakness, No Other Physical Exam Physical Exam Physical Exam Physical Exam Constitutional: Well developed, well nourished, mild acute distress, non-toxic appearance. [] HENT: Normocephalic, atraumatic, bilateral external ears normal, oropharynx moist, no oral exudates, nose normal. [] Eyes: PERRLA, EOMI, conjunctiva normal, no discharge. [] Neck: Normal range of motion, no tenderness, supple, no stridor. [] Cardiovascular:Heart rate regular rhythm, no murmur [] Lungs & Thorax: DECREASED BREATH SOUNDS B/L BASES Abdomen: Bowel sounds normal, soft, no tenderness, no masses, no pulsatile masses. [] Skin: Warm, dry, no erythema, no rash. [] the port site looks fine Back: No tenderness, no CVA tenderness. [] Extremities: right bunion tenderness, no cyanosis, no clubbing, , no edema. [] Neurologic: Alert and oriented X 3, normal motor function, normal sensory function, no focal deficits noted. [] Psychologic: Affect normal, judgement normal, mood normal. [] General: Alert, Oriented X3, Cooperative, mild distress HEENT: Atraumatic, PERRLA, Mucous membr. moist/pink Lungs: Normal air movement Heart: no gallops Breasts: Not examined Abdomen: Normal bowel sounds, Soft Rectal Exam: not examined Neuro: Normal speech, Cranial nerves 3-12 NL Psych/Mental Status: Mental status NL, Mood NL Vitals Vitals Vital Signs Date Time Temp Pulse Resp B/P (MAP) Pulse Ox O2 Delivery O2 Flow Rate FiO2 09/16/18 13:07 80 111/53 (72) 93 Room Air 09/16/18 11:57 97.7 18 97.7 Labs Labs Laboratory Tests Test 09/16/18 12:55 White Blood Count 4.2 x10^3/uL (4.0-11.0) Red Blood Count 3.64 x10^6/uL (3.50-5.40) Hemoglobin 11.2 g/dL (12.0-15.5) Hematocrit 34.1 % (36.0-47.0) Mean Corpuscular Volume 94 fL (79-100) Mean Corpuscular Hemoglobin 31 pg (25-35) Mean Corpuscular Hemoglobin Concent 33 g/dL (31-37) Red Cell Distribution Width 15.5 % (11.5-14.5) Platelet Count 362 x10^3/uL (140-400) Neutrophils (%) (Auto) 66 % (31-73) Lymphocytes (%) (Auto) 15 % (24-48) Monocytes (%) (Auto) 8 % (0-9) Eosinophils (%) (Auto) 9 % (0-3) Basophils (%) (Auto) 1 % (0-3) Neutrophils # (Auto) 2.8 x10^3uL (1.8-7.7) Lymphocytes # (Auto) 0.6 x10^3/uL (1.0-4.8) Monocytes # (Auto) 0.3 x10^3/uL (0.0-1.1) Eosinophils # (Auto) 0.4 x10^3/uL (0.0-0.7) Basophils # (Auto) 0.1 x10^3/uL (0.0-0.2) Prothrombin Time 15.1 SEC (11.7-14.0) Prothromb Time International Ratio 1.2 (0.8-1.1) Sodium Level 141 mmol/L (136-145) Potassium Level 4.1 mmol/L (3.5-5.1) Chloride Level 101 mmol/L (98-107) Carbon Dioxide Level 28 mmol/L (21-32) Anion Gap 12 (6-14) Blood Urea Nitrogen 23 mg/dL (7-20) Creatinine 1.4 mg/dL (0.6-1.0) Estimated GFR (Cockcroft-Gault) 36.9 BUN/Creatinine Ratio 16 (6-20) Glucose Level 133 mg/dL (70-99) Lactic Acid Level 4.0 mmol/L (0.4-2.0) Calcium Level 8.9 mg/dL (8.5-10.1) Total Bilirubin 0.3 mg/dL (0.2-1.0) Aspartate Amino Transf (AST/SGOT) 17 U/L (15-37) Alanine Aminotransferase (ALT/SGPT) 16 U/L (14-59) Alkaline Phosphatase 57 U/L (46-116) Creatine Kinase 23 U/L (26-192) Troponin I Quantitative < 0.017 ng/mL (0.000-0.055) Total Protein 6.4 g/dL (6.4-8.2) Albumin 2.5 g/dL (3.4-5.0) Albumin/Globulin Ratio 0.6 (1.0-1.7) Lipase 169 U/L (73-393) Procalcitonin < 0.10 ng/mL (0.00-0.10) Influenza Type A Antigen Negative (NEGATIVE) Influenza Type B Antigen Negative (NEGATIVE) Laboratory Tests Test 09/16/18 12:55 White Blood Count 4.2 x10^3/uL (4.0-11.0) Red Blood Count 3.64 x10^6/uL (3.50-5.40) Hemoglobin 11.2 g/dL (12.0-15.5) Hematocrit 34.1 % (36.0-47.0) Mean Corpuscular Volume 94 fL (79-100) Mean Corpuscular Hemoglobin 31 pg (25-35) Mean Corpuscular Hemoglobin Concent 33 g/dL (31-37) Red Cell Distribution Width 15.5 % (11.5-14.5) Platelet Count 362 x10^3/uL (140-400) Neutrophils (%) (Auto) 66 % (31-73) Lymphocytes (%) (Auto) 15 % (24-48) Monocytes (%) (Auto) 8 % (0-9) Eosinophils (%) (Auto) 9 % (0-3) Basophils (%) (Auto) 1 % (0-3) Neutrophils # (Auto) 2.8 x10^3uL (1.8-7.7) Lymphocytes # (Auto) 0.6 x10^3/uL (1.0-4.8) Monocytes # (Auto) 0.3 x10^3/uL (0.0-1.1) Eosinophils # (Auto) 0.4 x10^3/uL (0.0-0.7) Basophils # (Auto) 0.1 x10^3/uL (0.0-0.2) Prothrombin Time 15.1 SEC (11.7-14.0) Prothromb Time International Ratio 1.2 (0.8-1.1) Sodium Level 141 mmol/L (136-145) Potassium Level 4.1 mmol/L (3.5-5.1) Chloride Level 101 mmol/L (98-107) Carbon Dioxide Level 28 mmol/L (21-32) Anion Gap 12 (6-14) Blood Urea Nitrogen 23 mg/dL (7-20) Creatinine 1.4 mg/dL (0.6-1.0) Estimated GFR (Cockcroft-Gault) 36.9 BUN/Creatinine Ratio 16 (6-20) Glucose Level 133 mg/dL (70-99) Lactic Acid Level 4.0 mmol/L (0.4-2.0) Calcium Level 8.9 mg/dL (8.5-10.1) Total Bilirubin 0.3 mg/dL (0.2-1.0) Aspartate Amino Transf (AST/SGOT) 17 U/L (15-37) Alanine Aminotransferase (ALT/SGPT) 16 U/L (14-59) Alkaline Phosphatase 57 U/L (46-116) Creatine Kinase 23 U/L (26-192) Troponin I Quantitative < 0.017 ng/mL (0.000-0.055) Total Protein 6.4 g/dL (6.4-8.2) Albumin 2.5 g/dL (3.4-5.0) Albumin/Globulin Ratio 0.6 (1.0-1.7) Lipase 169 U/L (73-393) Procalcitonin < 0.10 ng/mL (0.00-0.10) Influenza Type A Antigen Negative (NEGATIVE) Influenza Type B Antigen Negative (NEGATIVE) Images Images EXAM: Chest, single view. HISTORY: Shortness of breath. Weakness. COMPARISON: 07/29/2018 FINDINGS: A frontal view of the chest is obtained. There has been slight interval decrease in previously demonstrated interstitial opacity. There is suspected basilar atelectasis. There is no pleural effusion or pneumothorax. There is a stable prominent cardiac silhouette. There is a right chest wall port catheter in expected position. IMPRESSION: Suspected bilateral lower lobe atelectasis. Electronically signed by: Lorena Felix MD (09/16/2018 12:45 PM) [id number] VTE Prophylaxis Ordered VTE Prophylaxis Devices: Yes VTE Pharmacological Prophylaxi: Yes Assessment/Plan Assessment/Plan ADMISSION DIAGNOSES: Pneumonia/ atelectasis and history of breast cancer.on chemotherapy/// IMMUNOCOMPROMISED lactic acidosis pneumonia, she is worried about mold exposure in her basement breast cancer, metastatic to bone morbid obesity, BMI 48 htn dm2, peripheral neuropathy plan blood cultX2 iv emperic antibiotics ZOSYN, VANC ID consult oncology consult dvt prophylaxis DUONOBS QID O2 SUPPORT COLEEN ANGELA MD Sep 16, 2018 14:49
[2018-09-16] MEDS ORDERED: VANCOMYCIN 2 GM in IV NORMAL SALINE 500ML BAG 500 ML IV ONE (15:00)
[2018-09-16] MEDS: IV NORMAL SALINE 1000ML BAG 1,000 ML IV SCH ×4 (15:35→23:24)
[2018-09-16] MEDS ORDERED: IV NORMAL SALINE 500ML BAG 500 ML IV PRN (15:45)
[2018-09-16] MEDS ORDERED: ENOXAPARIN 40 MG/0.4 ML SYRINGE. SQ SCH (16:00)
[2018-09-16 16:17] VITALS: BP 131/67
[2018-09-16 17:32] LABS: D-DIMER 1.92 ug/mlFEU (0.00-0.50)
[2018-09-16] MEDS ORDERED: PIPERACILLIN/TAZOBACTAM 3.375 GM in IV NORMAL SALINE 50ML 50 ML IV SCH (18:00)
[2018-09-16 19:00] VITALS: BP 152/69
[2018-09-16] MEDS: VANCOMYCIN PER PHARMACY MC PRN (19:18)
--- NOTE | 2018-09-16 19:21 | NUR ---
Pharmacy Vancomycin Dosing Note S:Consulted to monitor and dose vancomycin started 09/16/18. O:BRITT LAMBERT is a 73 year old F with ?Pneumonia Height: 5 feet, 7 inches Weight: 126.6 kg [place] Body Weight: 61.60 Adjusted Body Weight: 87.76 Dosing Weight: Actual Other Antibiotics: zosyn LABS: Last BUN: 23 Last Creatinine: 1.4 Creatinine Clearance: 50 mL/min Last WBC: 4.2 Last Procalcitonin: <0.1 Tmax (past 24 hours): 97.9 Last level: on at Last dose given 09/16/18 at 1711 Vancomycin Dosing: Loading Dose: 2000 mg x1 Dosing Weight: Actual Target Trough: 15-20 A: Based on: weight and renal function P: 1. Begin Vancomycin 1500 mg IV q24h 2. Follow up Trough level on 09/18/18 at 1630 3. Pharmacy will continue to monitor, follow and adjust therapy as needed. Veronica Zavala [facility], 09/16/18 [id number]
[2018-09-16] MEDS: IPRATROPIUM BROMIDE 0.5 MG/2.5 ML NEBU. NEB SCH ×2 (20:00→21:10)
[2018-09-16] MEDS: ACETAMINOPHEN 325 MG TABLET. PO PRN (22:03)
[2018-09-16] MEDS: GABAPENTIN 300 MG CAPSULE. PO SCH (22:03)
[2018-09-16] MEDS: BENZONATATE 100 MG CAPSULE. PO SCH (22:03)
[2018-09-16] MEDS: ATORVASTATIN CALCIUM 10 MG TABLET. PO SCH (22:03)
[2018-09-16] MEDS: ENOXAPARIN 40 MG/0.4 ML SYRINGE. SQ SCH (22:04)
[2018-09-16] MEDS: PIPERACILLIN/TAZOBACTAM 4.5 GM in IV NORMAL SALINE 100ML 100 ML IV SCH (22:05)
[2018-09-16 23:00] VITALS: BP 128/65
[2018-09-17 03:11] VITALS: BP 124/54
[2018-09-17 04:20] LABS: BASO % 1 % (0-3); EOS # 0.4 x10^3/uL (0.0-0.7); EOS % 13 % (0-3); HEMATOCRIT 32.2 % (36.0-47.0); HEMOGLOBIN 10.6 g/dL (12.0-15.5); LYMPH # 1.3 x10^3/uL (1.0-4.8); LYMPH % 38 % (24-48); MEAN CORPUSCULAR HEMOGLOBIN 31 pg (25-35); MEAN CORPUSCULAR HGB CONC 33 g/dL (31-37); MEAN CORPUSCULAR VOLUME 94 fL (79-100); MONO # 0.4 x10^3/uL (0.0-1.1); MONO % 13 % (0-9); NEUT # 1.2 x10^3uL (1.8-7.7); NEUT % 36 % (31-73); PLATELET COUNT 298 x10^3/uL (140-400); RED BLOOD COUNT 3.44 x10^6/uL (3.50-5.40); RED CELL DISTRIBUTION WIDTH 15.9 % (11.5-14.5); WHITE BLOOD COUNT 3.3 x10^3/uL (4.0-11.0)
[2018-09-17 04:22] LABS: BILIRUBIN,URINE NEGATIVE (NEG); CLARITY,URINE CLEAR; COLOR,URINE YELLOW; NITRITE,URINE NEGATIVE (NEG); PH,URINE 5.5; PROTEIN,URINE NEGATIVE (NEG-TRACE); UROBILINOGEN,URINE 0.2 mg/dL (0.2 mg/dL)
[2018-09-17 04:39] LABS: BACTERIA,URINE 0 /HPF (0-FEW); RBC,URINE 0 /HPF (0-2); SQUAMOUS EPITHELIAL CELL,UR FEW /LPF
[2018-09-17 04:41] LABS: ALBUMIN 2.1 g/dL (3.4-5.0); ALBUMIN/GLOBULIN RATIO 0.6 (1.0-1.7); CALCIUM 7.9 mg/dL (8.5-10.1); CREATININE 1.1 mg/dL (0.6-1.0); GFR 48.7; POTASSIUM 3.6 mmol/L (3.5-5.1); TOTAL BILIRUBIN 0.2 mg/dL (0.2-1.0); TOTAL PROTEIN 5.6 g/dL (6.4-8.2)
[2018-09-17] MEDS: PIPERACILLIN/TAZOBACTAM 4.5 GM in IV NORMAL SALINE 100ML 100 ML IV SCH ×6 (06:25→23:22)
[2018-09-17 07:00] VITALS: BP 139/51
[2018-09-17] MEDS ORDERED: MULT-509 PO (07:18)
[2018-09-17] MEDS ORDERED: CITA10TA4 PO (07:18)
[2018-09-17] MEDS ORDERED: CHOL10003 PO (07:18)
[2018-09-17] MEDS ORDERED: ALLO100T PO (07:18)
[2018-09-17] MEDS: IPRATROPIUM BROMIDE 0.5 MG/2.5 ML NEBU. NEB SCH ×3 (07:29→15:53)
--- NOTE | 2018-09-17 07:50 | RAD ---
Right foot 3 views. HISTORY: Foot pain, bunion 3 views were taken of the right foot. There is a prominent bunion deformity with metatarsus varus and hallux valgus deformity. There is mild arthritis at the first metatarsal phalangeal joint. There is arthritis with joint space narrowing, sclerosis and hypertrophic change at the second, third and fourth tarsometatarsal joints. There is no acute fracture. There is soft tissue swelling at the ankle. IMPRESSION: 1. Bunion deformity. 2. Arthritis at the tarsal metatarsal joints. Electronically signed by: Brian Portillo MD (09/17/2018 7:47 AM) [facility]
[2018-09-17] MEDS: IV NORMAL SALINE 1000ML BAG 1,000 ML IV SCH (07:52)
[2018-09-17] MEDS: POTASSIUM CHLORIDE 20 MEQ TABLET.ER. PO SCH (07:54)
[2018-09-17] MEDS: CALCIUM CARB/VIT D3 500/200 TABLET. PO SCH (07:54)
[2018-09-17] MEDS: PANTOPRAZOLE 40 MG TABLET.DR. PO SCH (07:54)
[2018-09-17] MEDS: GABAPENTIN 300 MG CAPSULE. PO SCH ×3 (08:36→20:37)
[2018-09-17] MEDS: GLIMEPIRIDE 2 MG TABLET. PO SCH (08:36)
[2018-09-17] MEDS: FUROSEMIDE 40 MG TABLET. PO SCH (08:36)
[2018-09-17] MEDS: ASPIRIN ENTERIC COATED 81 MG TABLET.DR. PO SCH (08:36)
[2018-09-17] MEDS: BENZONATATE 100 MG CAPSULE. PO SCH ×3 (08:37→20:37)
[2018-09-17] MEDS: ENOXAPARIN 40 MG/0.4 ML SYRINGE. SQ SCH ×2 (08:37→20:38)
[2018-09-17] MEDS: OMEGA-3 FATTY ACIDS/FISH OIL 1,000 MG CAPSULE. PO SCH (08:38)
[2018-09-17] MEDS: VANCOMYCIN PER PHARMACY MC PRN (09:14)
--- NOTE | 2018-09-17 09:57 | PDOC ---
Provider Note Provider Note [id number] ?sepsis acute bronchitis vs pneumonia jeffy see orders DOMENICA AYALA MD Sep 17, 2018 09:57
--- NOTE | 2018-09-17 10:40 | CONS ---
DATE OF CONSULTATION: 09/17/2018 I was asked to see this 73-year-old lady for pneumonia. HISTORY OF PRESENT ILLNESS: She has history of [id number] smoking, stopped smoking years ago. She has not been diagnosed with any pulmonary disease. She is diagnosed with obstructive sleep apnea-hypopnea syndrome and is on CPAP, which she does use during the sleep. She has recurrence of her breast cancer. She was diagnosed with bone mets in her clavicle. She received 2 courses of chemotherapy, then did into the third one and then she had 2 more courses. She gets chemotherapy every week. Yesterday, she went to Oncology for chemotherapy. She was found to have low blood pressure. She was sent to the Emergency Room for further evaluation. She has felt weak. She has had increased cough, not able to cough up sputum. She denies shortness of breath. She has had fever and chills. She denies diarrhea. She has had low appetite. PAST MEDICAL HISTORY: Obstructive sleep apnea-hypopnea syndrome, breast cancer with recurrence, diabetes mellitus and hypertension. ALLERGIES: SULFA AND CODEINE. MEDICATIONS: Currently, she is on vancomycin, Lasix, aspirin, potassium, Protonix, Lovenox, Lipitor, Zosyn and Atrovent via nebulizer. SOCIAL HISTORY: History of [id number] smoking, stopped smoking years ago. FAMILY HISTORY: Hypertension. REVIEW OF SYSTEMS: As mentioned as above, other systems otherwise negative. PHYSICAL EXAMINATION: GENERAL: This is an obese lady. She appears chronically ill. VITAL SIGNS: Her O2 saturation is 96%, respiratory rate 16, heart rate 87, blood pressure 139/51, temperature 98. HEENT: Normocephalic, atraumatic. Pupils equal, round, reactive to light. There is shallow oropharynx. Nose is clear. NECK: There is no JVD, lymphadenopathy or thyromegaly. CARDIOVASCULAR: Regular rate and rhythm. PMI is nondisplaced. CHEST: Inspection is normal. LUNGS: There are a few bibasilar crackles, dullness at the bases. ABDOMEN: Soft and obese. Bowel sounds are good. EXTREMITIES: There is no edema. LYMPHATICS: There is no lymphadenopathy. SKIN: Chronic changes. NEUROLOGIC: Alert and oriented. LABORATORY DATA: I reviewed the following lab data: WBC 4.2, hemoglobin 11.2, platelets 362. Sodium 143, potassium 3.6, chloride 107, CO2 of 28, glucose 79, BUN 18, creatinine 1.1. Lactic acid on admission was 4, repeat was 2.7. Troponin less than 0.01. Procalcitonin less than 0.1. IMPRESSION: 1. ?sepsis, could be secondary to pneumonia versus others. 2. Lactic acidosis secondary to sepsis, improving. 3. Acute bronchitis versus pneumonia. 4. Metastatic breast cancer, immunocompromised. 5. Anemia. 6. Obstructive sleep apnea-hypopnea syndrome. 7. Hypotension, resolved. 8. History of hypertension. 9. Diabetes mellitus. PLAN AND RECOMMENDATIONS: 1. Titrate FiO2 to keep O2 saturation 92%. 2. Agree with antibiotic, I agree with ID consultation. 3. Continue bronchodilator. 4. Lovenox for DVT prophylaxis. 5. Protonix for stress ulcer prophylaxis. 6. Monitor blood pressure. 7. Use CPAP during sleep. The importance of treatment of obstructive sleep apnea-hypopnea syndrome was discussed. 8. The findings and recommendations were discussed with the patient. She understood and agreed to proceed with the plan. I have answered all of her questions. Thank you very much for allowing me to participate in care of this very nice lady. DOMENICA AYALA M.D. : TIERNEY/shaila JOB#: [id number] / [id number]
[2018-09-17 11:00] VITALS: BP 146/72
--- NOTE | 2018-09-17 11:26 | PDOC ---
PROGRESS NOTES Chief Complaint Chief Complaint Pneumonia/ atelectasis and history of breast cancer.on chemotherapy IMMUNOCOMPROMISED lactic acidosis pneumonia, she is worried about mold exposure in her basement breast cancer, metastatic to bone morbid obesity, BMI 48 htn dm2, peripheral neuropathy History of Present Illness History of Present Illness blood cultX2 iv emperic antibiotics ZOSYN, VANC ID consult oncology consult dvt prophylaxis DUONOBS QID O2 SUPPORT Vitals Vitals Vital Signs Date Time Temp Pulse Resp B/P (MAP) Pulse Ox O2 Delivery O2 Flow Rate FiO2 09/17/18 07:45 Room Air 09/17/18 07:30 96 09/17/18 07:00 98.0 87 16 139/51 (80) 98.0 Physical Exam General: Alert, Oriented X3, Cooperative, mild distress Heart: Regular rate Lungs: Crackles Abdomen: Normal bowel sounds, Soft Extremities: No clubbing Skin: No rashes Labs LABS Laboratory Tests Test 09/16/18 12:55 09/16/18 16:40 09/17/18 04:00 09/17/18 04:13 White Blood Count 4.2 x10^3/uL (4.0-11.0) 3.3 x10^3/uL (4.0-11.0) Red Blood Count 3.64 x10^6/uL (3.50-5.40) 3.44 x10^6/uL (3.50-5.40) Hemoglobin 11.2 g/dL (12.0-15.5) 10.6 g/dL (12.0-15.5) Hematocrit 34.1 % (36.0-47.0) 32.2 % (36.0-47.0) Mean Corpuscular Volume 94 fL (79-100) 94 fL (79-100) Mean Corpuscular Hemoglobin 31 pg (25-35) 31 pg (25-35) Mean Corpuscular Hemoglobin Concent 33 g/dL (31-37) 33 g/dL (31-37) Red Cell Distribution Width 15.5 % (11.5-14.5) 15.9 % (11.5-14.5) Platelet Count 362 x10^3/uL (140-400) 298 x10^3/uL (140-400) Neutrophils (%) (Auto) 66 % (31-73) 36 % (31-73) Lymphocytes (%) (Auto) 15 % (24-48) 38 % (24-48) Monocytes (%) (Auto) 8 % (0-9) 13 % (0-9) Eosinophils (%) (Auto) 9 % (0-3) 13 % (0-3) Basophils (%) (Auto) 1 % (0-3) 1 % (0-3) Neutrophils # (Auto) 2.8 x10^3uL (1.8-7.7) 1.2 x10^3uL (1.8-7.7) Lymphocytes # (Auto) 0.6 x10^3/uL (1.0-4.8) 1.3 x10^3/uL (1.0-4.8) Monocytes # (Auto) 0.3 x10^3/uL (0.0-1.1) 0.4 x10^3/uL (0.0-1.1) Eosinophils # (Auto) 0.4 x10^3/uL (0.0-0.7) 0.4 x10^3/uL (0.0-0.7) Basophils # (Auto) 0.1 x10^3/uL (0.0-0.2) 0.0 x10^3/uL (0.0-0.2) Prothrombin Time 15.1 SEC (11.7-14.0) Prothromb Time International Ratio 1.2 (0.8-1.1) Sodium Level 141 mmol/L (136-145) 143 mmol/L (136-145) Potassium Level 4.1 mmol/L (3.5-5.1) 3.6 mmol/L (3.5-5.1) Chloride Level 101 mmol/L (98-107) 107 mmol/L (98-107) Carbon Dioxide Level 28 mmol/L (21-32) 28 mmol/L (21-32) Anion Gap 12 (6-14) 8 (6-14) Blood Urea Nitrogen 23 mg/dL (7-20) 18 mg/dL (7-20) Creatinine 1.4 mg/dL (0.6-1.0) 1.1 mg/dL (0.6-1.0) Estimated GFR (Cockcroft-Gault) 36.9 48.7 BUN/Creatinine Ratio 16 (6-20) 16 (6-20) Glucose Level 133 mg/dL (70-99) 79 mg/dL (70-99) Lactic Acid Level 4.0 mmol/L (0.4-2.0) 2.7 mmol/L (0.4-2.0) Calcium Level 8.9 mg/dL (8.5-10.1) 7.9 mg/dL (8.5-10.1) Total Bilirubin 0.3 mg/dL (0.2-1.0) 0.2 mg/dL (0.2-1.0) Aspartate Amino Transf (AST/SGOT) 17 U/L (15-37) 16 U/L (15-37) Alanine Aminotransferase (ALT/SGPT) 16 U/L (14-59) 13 U/L (14-59) Alkaline Phosphatase 57 U/L (46-116) 49 U/L (46-116) Creatine Kinase 23 U/L (26-192) Troponin I Quantitative < 0.017 ng/mL (0.000-0.055) Total Protein 6.4 g/dL (6.4-8.2) 5.6 g/dL (6.4-8.2) Albumin 2.5 g/dL (3.4-5.0) 2.1 g/dL (3.4-5.0) Albumin/Globulin Ratio 0.6 (1.0-1.7) 0.6 (1.0-1.7) Lipase 169 U/L (73-393) Procalcitonin < 0.10 ng/mL (0.00-0.10) Influenza Type A Antigen Negative (NEGATIVE) Influenza Type B Antigen Negative (NEGATIVE) Activated Partial Thromboplast Time 34 SEC (24-38) Fibrinogen 531 mg/dL (200-440) D-Dimer ([place]) 1.92 ug/mlFEU (0.00-0.50) Urine Collection Type Unknown Urine Color Yellow Urine Clarity Clear Urine pH 5.5 Urine Specific [place] 1.010 Urine Protein Negative mg/dL (NEG-TRACE) Urine Glucose (UA) Negative mg/dL (NEG) Urine Ketones (Stick) Negative mg/dL (NEG) Urine Blood Negative (NEG) Urine Nitrite Negative (NEG) Urine Bilirubin Negative (NEG) Urine Urobilinogen Dipstick 0.2 mg/dL (0.2 mg/dL) Urine Leukocyte Esterase Trace (NEG) Urine RBC 0 /HPF (0-2) Urine WBC 1-4 /HPF (0-4) Urine Squamous Epithelial Cells Few /LPF Urine Bacteria 0 /HPF (0-FEW) Review of Systems Review of Systems weakness, cough, dyspnea Assessment and Plan Assessmemt and Plan Problems Medical Problems: (1) Lactic acidosis Status: Acute Comment Review of Relevant I have reviewed the following items uriel (where applicable) has been applied. Labs Laboratory Tests Test 09/16/18 12:55 09/16/18 16:40 09/17/18 04:00 09/17/18 04:13 White Blood Count 4.2 x10^3/uL (4.0-11.0) 3.3 x10^3/uL (4.0-11.0) Red Blood Count 3.64 x10^6/uL (3.50-5.40) 3.44 x10^6/uL (3.50-5.40) Hemoglobin 11.2 g/dL (12.0-15.5) 10.6 g/dL (12.0-15.5) Hematocrit 34.1 % (36.0-47.0) 32.2 % (36.0-47.0) Mean Corpuscular Volume 94 fL (79-100) 94 fL (79-100) Mean Corpuscular Hemoglobin 31 pg (25-35) 31 pg (25-35) Mean Corpuscular Hemoglobin Concent 33 g/dL (31-37) 33 g/dL (31-37) Red Cell Distribution Width 15.5 % (11.5-14.5) 15.9 % (11.5-14.5) Platelet Count 362 x10^3/uL (140-400) 298 x10^3/uL (140-400) Neutrophils (%) (Auto) 66 % (31-73) 36 % (31-73) Lymphocytes (%) (Auto) 15 % (24-48) 38 % (24-48) Monocytes (%) (Auto) 8 % (0-9) 13 % (0-9) Eosinophils (%) (Auto) 9 % (0-3) 13 % (0-3) Basophils (%) (Auto) 1 % (0-3) 1 % (0-3) Neutrophils # (Auto) 2.8 x10^3uL (1.8-7.7) 1.2 x10^3uL (1.8-7.7) Lymphocytes # (Auto) 0.6 x10^3/uL (1.0-4.8) 1.3 x10^3/uL (1.0-4.8) Monocytes # (Auto) 0.3 x10^3/uL (0.0-1.1) 0.4 x10^3/uL (0.0-1.1) Eosinophils # (Auto) 0.4 x10^3/uL (0.0-0.7) 0.4 x10^3/uL (0.0-0.7) Basophils # (Auto) 0.1 x10^3/uL (0.0-0.2) 0.0 x10^3/uL (0.0-0.2) Prothrombin Time 15.1 SEC (11.7-14.0) Prothromb Time International Ratio 1.2 (0.8-1.1) Sodium Level 141 mmol/L (136-145) 143 mmol/L (136-145) Potassium Level 4.1 mmol/L (3.5-5.1) 3.6 mmol/L (3.5-5.1) Chloride Level 101 mmol/L (98-107) 107 mmol/L (98-107) Carbon Dioxide Level 28 mmol/L (21-32) 28 mmol/L (21-32) Anion Gap 12 (6-14) 8 (6-14) Blood Urea Nitrogen 23 mg/dL (7-20) 18 mg/dL (7-20) Creatinine 1.4 mg/dL (0.6-1.0) 1.1 mg/dL (0.6-1.0) Estimated GFR (Cockcroft-Gault) 36.9 48.7 BUN/Creatinine Ratio 16 (6-20) 16 (6-20) Glucose Level 133 mg/dL (70-99) 79 mg/dL (70-99) Lactic Acid Level 4.0 mmol/L (0.4-2.0) 2.7 mmol/L (0.4-2.0) Calcium Level 8.9 mg/dL (8.5-10.1) 7.9 mg/dL (8.5-10.1) Total Bilirubin 0.3 mg/dL (0.2-1.0) 0.2 mg/dL (0.2-1.0) Aspartate Amino Transf (AST/SGOT) 17 U/L (15-37) 16 U/L (15-37) Alanine Aminotransferase (ALT/SGPT) 16 U/L (14-59) 13 U/L (14-59) Alkaline Phosphatase 57 U/L (46-116) 49 U/L (46-116) Creatine Kinase 23 U/L (26-192) Troponin I Quantitative < 0.017 ng/mL (0.000-0.055) Total Protein 6.4 g/dL (6.4-8.2) 5.6 g/dL (6.4-8.2) Albumin 2.5 g/dL (3.4-5.0) 2.1 g/dL (3.4-5.0) Albumin/Globulin Ratio 0.6 (1.0-1.7) 0.6 (1.0-1.7) Lipase 169 U/L (73-393) Procalcitonin < 0.10 ng/mL (0.00-0.10) Influenza Type A Antigen Negative (NEGATIVE) Influenza Type B Antigen Negative (NEGATIVE) Activated Partial Thromboplast Time 34 SEC (24-38) Fibrinogen 531 mg/dL (200-440) D-Dimer ([place]anda) 1.92 ug/mlFEU (0.00-0.50) Urine Collection Type Unknown Urine Color Yellow Urine Clarity Clear Urine pH 5.5 Urine Specific [place] 1.010 Urine Protein Negative mg/dL (NEG-TRACE) Urine Glucose (UA) Negative mg/dL (NEG) Urine Ketones (Stick) Negative mg/dL (NEG) Urine Blood Negative (NEG) Urine Nitrite Negative (NEG) Urine Bilirubin Negative (NEG) Urine Urobilinogen Dipstick 0.2 mg/dL (0.2 mg/dL) Urine Leukocyte Esterase Trace (NEG) Urine RBC 0 /HPF (0-2) Urine WBC 1-4 /HPF (0-4) Urine Squamous Epithelial Cells Few /LPF Urine Bacteria 0 /HPF (0-FEW) Laboratory Tests Test 09/16/18 12:55 09/16/18 16:40 09/17/18 04:00 09/17/18 04:13 White Blood Count 4.2 x10^3/uL (4.0-11.0) 3.3 x10^3/uL (4.0-11.0) Red Blood Count 3.64 x10^6/uL (3.50-5.40) 3.44 x10^6/uL (3.50-5.40) Hemoglobin 11.2 g/dL (12.0-15.5) 10.6 g/dL (12.0-15.5) Hematocrit 34.1 % (36.0-47.0) 32.2 % (36.0-47.0) Mean Corpuscular Volume 94 fL (79-100) 94 fL (79-100) Mean Corpuscular Hemoglobin 31 pg (25-35) 31 pg (25-35) Mean Corpuscular Hemoglobin Concent 33 g/dL (31-37) 33 g/dL (31-37) Red Cell Distribution Width 15.5 % (11.5-14.5) 15.9 % (11.5-14.5) Platelet Count 362 x10^3/uL (140-400) 298 x10^3/uL (140-400) Neutrophils (%) (Auto) 66 % (31-73) 36 % (31-73) Lymphocytes (%) (Auto) 15 % (24-48) 38 % (24-48) Monocytes (%) (Auto) 8 % (0-9) 13 % (0-9) Eosinophils (%) (Auto) 9 % (0-3) 13 % (0-3) Basophils (%) (Auto) 1 % (0-3) 1 % (0-3) Neutrophils # (Auto) 2.8 x10^3uL (1.8-7.7) 1.2 x10^3uL (1.8-7.7) Lymphocytes # (Auto) 0.6 x10^3/uL (1.0-4.8) 1.3 x10^3/uL (1.0-4.8) Monocytes # (Auto) 0.3 x10^3/uL (0.0-1.1) 0.4 x10^3/uL (0.0-1.1) Eosinophils # (Auto) 0.4 x10^3/uL (0.0-0.7) 0.4 x10^3/uL (0.0-0.7) Basophils # (Auto) 0.1 x10^3/uL (0.0-0.2) 0.0 x10^3/uL (0.0-0.2) Prothrombin Time 15.1 SEC (11.7-14.0) Prothromb Time International Ratio 1.2 (0.8-1.1) Sodium Level 141 mmol/L (136-145) 143 mmol/L (136-145) Potassium Level 4.1 mmol/L (3.5-5.1) 3.6 mmol/L (3.5-5.1) Chloride Level 101 mmol/L (98-107) 107 mmol/L (98-107) Carbon Dioxide Level 28 mmol/L (21-32) 28 mmol/L (21-32) Anion Gap 12 (6-14) 8 (6-14) Blood Urea Nitrogen 23 mg/dL (7-20) 18 mg/dL (7-20) Creatinine 1.4 mg/dL (0.6-1.0) 1.1 mg/dL (0.6-1.0) Estimated GFR (Cockcroft-Gault) 36.9 48.7 BUN/Creatinine Ratio 16 (6-20) 16 (6-20) Glucose Level 133 mg/dL (70-99) 79 mg/dL (70-99) Lactic Acid Level 4.0 mmol/L (0.4-2.0) 2.7 mmol/L (0.4-2.0) Calcium Level 8.9 mg/dL (8.5-10.1) 7.9 mg/dL (8.5-10.1) Total Bilirubin 0.3 mg/dL (0.2-1.0) 0.2 mg/dL (0.2-1.0) Aspartate Amino Transf (AST/SGOT) 17 U/L (15-37) 16 U/L (15-37) Alanine Aminotransferase (ALT/SGPT) 16 U/L (14-59) 13 U/L (14-59) Alkaline Phosphatase 57 U/L (46-116) 49 U/L (46-116) Creatine Kinase 23 U/L (26-192) Troponin I Quantitative < 0.017 ng/mL (0.000-0.055) Total Protein 6.4 g/dL (6.4-8.2) 5.6 g/dL (6.4-8.2) Albumin 2.5 g/dL (3.4-5.0) 2.1 g/dL (3.4-5.0) Albumin/Globulin Ratio 0.6 (1.0-1.7) 0.6 (1.0-1.7) Lipase 169 U/L (73-393) Procalcitonin < 0.10 ng/mL (0.00-0.10) Influenza Type A Antigen Negative (NEGATIVE) Influenza Type B Antigen Negative (NEGATIVE) Activated Partial Thromboplast Time 34 SEC (24-38) Fibrinogen 531 mg/dL (200-440) D-Dimer ([place]anda) 1.92 ug/mlFEU (0.00-0.50) Urine Collection Type Unknown Urine Color Yellow Urine Clarity Clear Urine pH 5.5 Urine Specific [place] 1.010 Urine Protein Negative mg/dL (NEG-TRACE) Urine Glucose (UA) Negative mg/dL (NEG) Urine Ketones (Stick) Negative mg/dL (NEG) Urine Blood Negative (NEG) Urine Nitrite Negative (NEG) Urine Bilirubin Negative (NEG) Urine Urobilinogen Dipstick 0.2 mg/dL (0.2 mg/dL) Urine Leukocyte Esterase Trace (NEG) Urine RBC 0 /HPF (0-2) Urine WBC 1-4 /HPF (0-4) Urine Squamous Epithelial Cells Few /LPF Urine Bacteria 0 /HPF (0-FEW) Medications Current Medications Sodium Chloride 1,000 ml @ 1,000 mls/hr 1X ONCE IV Last administered on at 12:55; Start 09/16/18 at 12:30; Stop 09/16/18 at 13:29; Status DC Vancomycin HCl (Vanco Per Pharmacy) 1 each PRN DAILY PRN MC SEE COMMENTS; Start 09/16/18 at 14:45; Status UNV Piperacillin Sod/ Tazobactam Sod 3.375 gm/Sodium Chloride 50 ml @ 100 mls/hr 1X ONCE IV Last administered on 09/16/18at 15:16; Start 09/16/18 at 14:45; Stop 09/16/18 at 15:14; Status DC Sodium Chloride 1,000 ml @ 125 mls/hr Q8H IV Last administered on 09/17/18at 07 :52; Start 09/16/18 at 14:36; Stop 09/17/18 at 14:35 Sodium Chloride 1,000 ml @ 1,000 mls/hr 1X ONCE IV Last administered on at 15:17; Start 09/16/18 at 14:45; Stop 09/16/18 at 15:44; Status DC Vancomycin HCl 2 gm/Sodium Chloride 500 ml @ 250 mls/hr 1X ONCE IV Last administered on 09/16/18at 17:11; Start 09/16/18 at 15:00; Stop 09/16/18 at 16:59 ; Status DC Piperacillin Sod/ Tazobactam Sod 3.375 gm/Sodium Chloride 50 ml @ 100 mls/hr Q6HRS IV ; Start 09/16/18 at 18:00; Stop 09/16/18 at 18:00; Status DC Aspirin (Ecotrin) 81 mg DAILY PO Last administered on 09/17/18at 08:36; Start at 09:00 Furosemide (Lasix) 40 mg DAILY PO Last administered on 09/17/18at 08:36; Start 09/17/18 at 09:00 Gabapentin (Neurontin) 300 mg TID PO Last administered on 09/17/18 08:36; Start 09/16/18 at 21:00 Glimepiride (Amaryl) 2 mg DAILY PO Last administered on 09/17/18at 08:36; Start 09/17/18 at 09:00 Acetaminophen/ Hydrocodone Bitart (Lortab 5/325) 1 tab PRN Q6HRS PRN PO PAIN; Start 09/16/18 at 15:30 Ipratropium [place] (Atrovent) 0.5 mg RTQID NEB Last administered on 09/17/18at 07:29; Start 09/16/18 at 16:00 Fish Oil (Fish Oil) 1,000 mg DAILY PO ; Start 09/17/18 at 09:00 Potassium Chloride (Klor-Con) 20 meq DAILYWBKFT PO Last administered on at 07:54; Start 09/17/18 at 08:00 Benzonatate (Tessalon Perle) 100 mg [id number] PO Last administered on 09/17/18at 08 :37; Start 09/16/18 at 21:00 Calcium/Vitamin D (Oscal D 500mg/ 200uts) 1 tab DAILYWBKFT PO Last administered on 09/17/18at 07:54; Start 09/17/18 at 08:00 Pantoprazole Sodium (Protonix) 40 mg DAILYAC PO Last administered on 09/17/18at 07:54; Start 09/17/18 at 07:30 Atorvastatin Calcium (Lipitor) 10 mg QHS PO Last administered on 09/16/18at 22: 03; Start 09/16/18 at 21:00 Vancomycin HCl (Vanco Per Pharmacy) 1 each PRN DAILY PRN MC SEE COMMENTS Last administered on 09/17/18at 09:14; Start 09/16/18 at 15:30 Enoxaparin Sodium (Lovenox 40mg Syringe) 40 mg Q24H SQ ; Start 09/16/18 at 16:00 ; Stop 09/16/18 at 16:00; Status DC Piperacillin Sod/ Tazobactam Sod 4.5 gm/Sodium Chloride 100 ml @ 200 mls/hr Q6HRS IV Last administered on 09/17/18at 06:25; Start 09/16/18 at 19:00 Enoxaparin Sodium (Lovenox 40mg Syringe) 40 mg Q12HR SQ Last administered on at 08:37; Start 09/16/18 at 21:00 Sodium Chloride 1,000 ml @ 1,860 mls/hr Q33M IV ; Start 09/16/18 at 15:35; Stop 09/16/18 at 16:35; Status DC Sodium Chloride 500 ml @ 1,000 mls/hr PRN Q30MIN PRN IV SEE COMMENTS; Start at 15:45 Vancomycin HCl 1.5 gm/Sodium Chloride 500 ml @ 250 mls/hr Q24H IV ; Start 09/17 at 17:00; Stop 09/17/18 at 17:00; Status DC Vancomycin HCl (Vancomycin Trough Level) 1 each 1X ONCE MC ; Start 09/18/18 at 16:30; Stop 09/18/18 at 16:31 Acetaminophen (Tylenol) 650 mg PRN Q6HRS PRN PO TEMP Last administered on 09/16at 22:03; Start 09/16/18 at 21:00 Vancomycin HCl 2 gm/Sodium Chloride 500 ml @ 250 mls/hr Q24H IV ; Start at 17:00 Active Scripts Active Ipratropium [place] 0.2 Mg/1 Ml Solution 0.5 Mg NEB RTQID MDD 1 Reported Allopurinol 100 Mg Tablet 1 Tab PO DAILY Citalopram Hbr (Citalopram Hydrobromide) 10 Mg Tablet 1 Tab PO DAILY Vitamin D3 (Cholecalciferol (Vitamin D3)) 1,000 Unit Tablet 2 Tab PO DAILY Complete Multivitamin (Multivits,Th W-Fe,Other Min) 1 Each Tablet 1 Each PO DAILY Omeprazole 40 Mg Capsule.dr 1 Cap PO DAILY Aspir-Low (Aspirin) 81 Mg Tablet.dr 81 Mg PO DAILY Benazepril Hcl 20 Mg Tablet 10 Mg PO DAILY Hydrocodone-Apap 5-325 (Hydrocodone Bit/Acetaminophen) 1 Each Tablet 1 Tab PO PRN Q6HRS PRN Glimepiride 2 Mg Tablet 1 Tab PO DAILY Calcium 600 + Vit D 800 Tab (Calcium Carbonate/Vitamin D3) 1 Each Tablet 1 Each PO DAILY Fish Oil 1,000 Mg Capsule ([place]-3 Fatty Acids/Fish Oil) 1 Each Capsule 1 Each PO DAILY Metformin Hcl 1,000 Mg Tablet 1,000 Mg PO BID Furosemide 40 Mg Tablet 40 Mg PO DAILY Klor-Con M20 (Potassium Chloride) 20 Meq Tab.er.prt 20 Meq PO DAILY Pravastatin Sodium 40 Mg Tablet 1 Tab PO QHS Gabapentin (Gabapentin) 100 Mg Capsule 300 Mg PO TID Metoprolol Tartrate 50 Mg Tablet 50 Mg PO BID Vitals/I & O Vital Sign - Last 24 Hours 09/16/18 09/16/18 09/16/18 09/16/18 11:57 12:07 12:37 13:07 Temp 97.7 97.7 Pulse 79 80 78 80 Resp 18 B/P (MAP) 111/57 (75) 111/57 (75) 132/77 (95) 111/53 (72) Pulse Ox 95 94 94 93 O2 Delivery Room Air Room Air Room Air Room Air 09/16/18 09/16/18 09/16/18 09/16/18 13:37 14:07 14:47 15:07 Pulse 82 80 76 82 B/P (MAP) 104/51 (68) 113/53 (73) 109/53 (71) 114/52 (72) Pulse Ox 93 91 91 94 O2 Delivery Room Air Room Air Room Air Room Air 09/16/18 09/16/18 09/16/18 09/16/18 16:17 18:00 19:00 21:23 Temp 97.9 100.2 97.9 100.2 Pulse 89 100 Resp 20 20 B/P (MAP) 131/67 (88) 152/69 (96) Pulse Ox 97 93 92 O2 Delivery Room Air Room Air Room Air Room Air 09/16/18 09/16/18 09/17/18 09/17/18 22:05 23:00 03:11 07:00 Temp 97.6 98.1 98.0 97.6 98.1 98.0 Pulse 100 90 87 Resp 20 20 16 B/P (MAP) 128/65 (86) 124/54 (77) 139/51 (80) Pulse Ox 93 92 94 O2 Delivery Room Air Room Air BiPAP/CPAP Room Air 09/17/18 09/17/18 07:30 07:45 Pulse Ox 96 O2 Delivery Room Air Room Air Intake and Output 09/16/18 09/16/18 09/17/18 14:59 22:59 06:59 Intake Total 100 ml 1532 ml Output Total 600 ml Balance 100 ml 932 ml ALIN CARBONE MD Sep 17, 2018 11:26
[2018-09-17 15:00] VITALS: BP 114/65
--- NOTE | 2018-09-17 16:12 | NUR ---
Rehab screen completed. Pt would benefit from PT/OT eval and treat. Please order if you agree. Addendum: 09/17/18 at 1613 by KIP MASSEY PT Amended: Links added.
[2018-09-17] MEDS: VANCOMYCIN 2 GM in IV NORMAL SALINE 500ML BAG 500 ML IV SCH (16:25)
[2018-09-17] MEDS: ACETAMINOPHEN 325 MG TABLET. PO PRN (16:29)
[2018-09-17] MEDS ORDERED: VANCOMYCIN 1.5 GM in IV NORMAL SALINE 500ML BAG 500 ML IV SCH (17:00)
--- NOTE | 2018-09-17 17:14 | PDOC ---
Infectious Disease Note Vital Sign Vital Signs Vital Signs Date Time Temp Pulse Resp B/P (MAP) Pulse Ox O2 Delivery O2 Flow Rate FiO2 09/17/18 15:54 Room Air 09/17/18 15:00 98.4 97 16 114/65 (81) 93 98.4 Labs Lab Laboratory Tests Test 09/17/18 04:00 09/17/18 04:13 White Blood Count 3.3 x10^3/uL (4.0-11.0) Red Blood Count 3.44 x10^6/uL (3.50-5.40) Hemoglobin 10.6 g/dL (12.0-15.5) Hematocrit 32.2 % (36.0-47.0) Mean Corpuscular Volume 94 fL (79-100) Mean Corpuscular Hemoglobin 31 pg (25-35) Mean Corpuscular Hemoglobin Concent 33 g/dL (31-37) Red Cell Distribution Width 15.9 % (11.5-14.5) Platelet Count 298 x10^3/uL (140-400) Neutrophils (%) (Auto) 36 % (31-73) Lymphocytes (%) (Auto) 38 % (24-48) Monocytes (%) (Auto) 13 % (0-9) Eosinophils (%) (Auto) 13 % (0-3) Basophils (%) (Auto) 1 % (0-3) Neutrophils # (Auto) 1.2 x10^3uL (1.8-7.7) Lymphocytes # (Auto) 1.3 x10^3/uL (1.0-4.8) Monocytes # (Auto) 0.4 x10^3/uL (0.0-1.1) Eosinophils # (Auto) 0.4 x10^3/uL (0.0-0.7) Basophils # (Auto) 0.0 x10^3/uL (0.0-0.2) Sodium Level 143 mmol/L (136-145) Potassium Level 3.6 mmol/L (3.5-5.1) Chloride Level 107 mmol/L (98-107) Carbon Dioxide Level 28 mmol/L (21-32) Anion Gap 8 (6-14) Blood Urea Nitrogen 18 mg/dL (7-20) Creatinine 1.1 mg/dL (0.6-1.0) Estimated GFR (Cockcroft-Gault) 48.7 BUN/Creatinine Ratio 16 (6-20) Glucose Level 79 mg/dL (70-99) Calcium Level 7.9 mg/dL (8.5-10.1) Total Bilirubin 0.2 mg/dL (0.2-1.0) Aspartate Amino Transf (AST/SGOT) 16 U/L (15-37) Alanine Aminotransferase (ALT/SGPT) 13 U/L (14-59) Alkaline Phosphatase 49 U/L (46-116) Total Protein 5.6 g/dL (6.4-8.2) Albumin 2.1 g/dL (3.4-5.0) Albumin/Globulin Ratio 0.6 (1.0-1.7) Urine Collection Type Unknown Urine Color Yellow Urine Clarity Clear Urine pH 5.5 Urine Specific [place] 1.010 Urine Protein Negative mg/dL (NEG-TRACE) Urine Glucose (UA) Negative mg/dL (NEG) Urine Ketones (Stick) Negative mg/dL (NEG) Urine Blood Negative (NEG) Urine Nitrite Negative (NEG) Urine Bilirubin Negative (NEG) Urine Urobilinogen Dipstick 0.2 mg/dL (0.2 mg/dL) Urine Leukocyte Esterase Trace (NEG) Urine RBC 0 /HPF (0-2) Urine WBC 1-4 /HPF (0-4) Urine Squamous Epithelial Cells Few /LPF Urine Bacteria 0 /HPF (0-FEW) Micro Microbiology 09/16/18 Blood Culture - Preliminary, Resulted NO GROWTH AFTER 1 DAY Objective Assessment Lactic acidosis Leukopenia Acute bronchitis Right foot pain, arthritic changes and bunion deformity Stage 4 recurrent breast cancer undergoing palliative chemo via port Renal insufficiency Morbid obesity Sulfa allergy h/o gout Plan Plan of Care [place] for now Repeat CBC in am f/u cultures Supportive care D/w nursing Thank you [id number] Patient seen and examined. Chart reviewed in detail. Case discussed with MECHANIC DRIVER> Agree with above plan GIBSON MURRAY APRN Sep 17, 2018 17:14 CHUCKY YO MD Sep 17, 2018 20:07
[2018-09-17 19:00] VITALS: BP 120/66
[2018-09-17] MEDS: ATORVASTATIN CALCIUM 10 MG TABLET. PO SCH (20:37)
[2018-09-17 22:36] VITALS: BP 140/65
--- NOTE | 2018-09-18 00:43 | CONS ---
DATE OF CONSULTATION: 09/17/2018 REFERRING PHYSICIAN: Dr. Joyce. REASON FOR CONSULTATION: Pneumonia versus atelectasis, on chemotherapy. HISTORY OF PRESENT ILLNESS: This patient is a 73-year-old female with stage IV recurrent breast cancer, undergoing palliative chemotherapy. She was sent to the ER yesterday from [facility] for evaluation of hypotension and lightheadedness. She was afebrile with a normal white blood cell count and a lactic acid of 4.0. A chest x-ray showed suspected bilateral lower lobe atelectasis. Urinalysis was unremarkable for infection and blood cultures so far are negative. Her influenza screen was negative as well. She was dosed empirically with vancomycin and Zosyn. Since admission, she developed a low grade fever of 100.2 with chills. The patient says she has not been feeling well for a while and had developed a cough yesterday morning and since, her voice is hoarse and she has a headache. She denies nasal/sinus congestion or sore throat. Denies chest discomfort or shortness of air. She has some diarrhea, but denies bloating, cramps, nausea or vomiting. She says her appetite is good. She is most bothered though by right foot pain. She says she is a diabetic and has some neuropathy in her feet, but this pain is a little bit different and is painful and it makes walking difficult. She has a history of gout. She was hospitalized about 2 months ago for pneumonia. PAST MEDICAL HISTORY: Stage IV recurrent breast cancer, undergoing palliative chemotherapy; diabetes type 2, peripheral neuropathy, coronary artery disease, hypercholesterolemia, hypertension, sleep apnea with use of CPAP, gastroesophageal reflux disease, chronic kidney disease, osteoarthritis. PAST SURGICAL HISTORY: Cataract extraction, Port-A-Cath placement, bilateral mastectomies, total abdominal hysterectomy, cholecystectomy, right rotator cuff repair. FAMILY HISTORY: Positive for heart disease, hypertension, congestive heart failure, cancer and diabetes. SOCIAL HISTORY: The patient is and lives at home. She has a Chihuahua. She is a former smoker. She drinks alcohol occasionally. ALLERGIES: SULFA AND CODEINE. MEDICATIONS: Vancomycin, Zosyn, Tylenol, aspirin, Lipitor, Tessalon Perles, calcium carbonate/vitamin D3, Lovenox, Lasix, gabapentin, glimepiride, Lortab, Atrovent, omega-3, Protonix, potassium. REVIEW OF SYSTEMS: Per HPI, otherwise, all other review of systems are negative. PHYSICAL EXAMINATION: VITAL SIGNS: Temperature 98.4, T-max 100.2, blood pressure 114/65, heart rate 97, respiratory rate 16, pulse oximetry 93% on room air. BMI 46.0. HEENT: Normal conjunctivae. Oral cavity: Pharynx pink and moist. No thrush or lesions seen. NECK: Supple. LUNGS: Clear, nonlabored. HEART: S1, S2. ABDOMEN: Obese, soft and nontender with bowel sounds present. EXTREMITIES: No gross edema or cyanosis. SKIN: Warm without generalized rash. She has a small scab to right second toe and a callus to left plantar surface as well as bilateral bunions. Distal pulses palpable. There is no redness or swelling noted. NEUROLOGIC: Alert and oriented x 3. LINES: Port-A-Cath without signs of any complications. Peripheral IV looks okay. LABORATORY DATA: Today's WBC 3.3 from 4.2 on admission, hemoglobin 10.6, platelets 298,000. Electrolytes unremarkable. Creatinine 1.1 from 1.4 on admission, glucose 79. Lactic acid 2.7 from 4.0 on admission. Troponin less than 0.017. Albumin 2.1. Procalcitonin less than 0.10. AST 17, ALT 16, total bilirubin 0.3. Urinalysis unremarkable for infection. Influenza screen negative. Blood cultures from 09/16/2018 negative to date. Chest x-ray per HPI. Right foot x-ray shows bunion deformity and arthritis at the tarsometatarsal joints. IMPRESSION: 1. Lactic acidosis. 2. Leukopenia. 3. Acute bronchitis. 4. Right foot pain with arthritic changes and bunion deformity. 5. Stage IV recurrent breast cancer, undergoing palliative chemotherapy. 6. Renal insufficiency. 7. Morbid obesity. 8. SULFA allergy. PLAN: Continue the vancomycin and Zosyn for now. Repeat CBC in a.m. We will follow up on culture results. Pain management per primary. Supportive care. Discussed with nursing staff. Thank you, Dr. Joyce, for asking us to participate in this patient's care. Should you have further questions or concerns, please call. CHUCKY YO MD DR: IVY/shaila JOB#: [id number] / [id number]
[2018-09-18 03:00] VITALS: BP 164/85
[2018-09-18] MEDS: PIPERACILLIN/TAZOBACTAM 4.5 GM in IV NORMAL SALINE 100ML 100 ML IV SCH ×4 (05:21→23:39)
[2018-09-18 07:00] VITALS: BP 146/85
[2018-09-18] MEDS: PANTOPRAZOLE 40 MG TABLET.DR. PO SCH (07:44)
[2018-09-18] MEDS: IPRATROPIUM BROMIDE 0.5 MG/2.5 ML NEBU. NEB SCH ×4 (08:00→19:43)
[2018-09-18] MEDS: POTASSIUM CHLORIDE 20 MEQ TABLET.ER. PO SCH (08:00)
[2018-09-18 08:21] LABS: BASO % 1 % (0-3); EOS # 0.4 x10^3/uL (0.0-0.7); EOS % 9 % (0-3); HEMATOCRIT 33.4 % (36.0-47.0); LYMPH # 0.8 x10^3/uL (1.0-4.8); LYMPH % 22 % (24-48); MEAN CORPUSCULAR HEMOGLOBIN 31 pg (25-35); MEAN CORPUSCULAR HGB CONC 33 g/dL (31-37); MEAN CORPUSCULAR VOLUME 93 fL (79-100); MONO # 0.4 x10^3/uL (0.0-1.1); MONO % 10 % (0-9); NEUT # 2.2 x10^3uL (1.8-7.7); NEUT % 58 % (31-73); PLATELET COUNT 325 x10^3/uL (140-400); RED BLOOD COUNT 3.61 x10^6/uL (3.50-5.40); RED CELL DISTRIBUTION WIDTH 16.1 % (11.5-14.5); WHITE BLOOD COUNT 3.9 x10^3/uL (4.0-11.0)
--- NOTE | 2018-09-18 08:26 | PDOC ---
Infectious Disease Note Subjective Subjective Slept off and on last night due to cough Not very hungry this morning, feeling a bit nauseous Less right foot pain No fevers/chills last 24 hours Denies SOA/CP ROS ROS per HPI Vital Sign Vital Signs Vital Signs Date Time Temp Pulse Resp B/P (MAP) Pulse Ox O2 Delivery O2 Flow Rate FiO2 09/18/18 08:01 93 Room Air 09/18/18 07:00 99.4 101 19 146/85 (105) 99.4 Physical Exam PHYSICAL EXAM GENERAL:Propped up in bed, alert, NAD HEENT: Normal conjunctivae. Oral cavity: Pharynx pink and moist. No thrush/ lesions seen. NECK: Supple. LUNGS: Clear, nonlabored. HEART: S1, S2. ABDOMEN: Obese, soft and nontender with bowel sounds present. EXTREMITIES: No gross edema or cyanosis. SKIN: Warm without generalized rash. She has a small scab to right second toe and a callus to left plantar surface as well as bilateral bunions. Distal pulses palpable. There is no redness or swelling noted. NEUROLOGIC: Alert and oriented x 3. LINES: Port-A-Cath without signs of any complications. Peripheral IV looks okay. Labs Micro Microbiology 09/16/18 Blood Culture - Preliminary, Resulted NO GROWTH AFTER 1 DAY Objective Assessment Lactic acidosis,,,better Leukopenia Acute bronchitis Right foot pain, arthritic changes and bunion deformity Stage 4 recurrent breast cancer undergoing palliative chemo via port Renal insufficiency Morbid obesity Sulfa allergy h/o gout Plan Plan of Care evens and Esha for now today's labs pending f/u cultures Supportive care Patient seen and examined. Chart reviewed in detail. Case discussed with [employer]. Agree with above plan. GIBSON MURRAY APRN Sep 18, 2018 08:26 CHUCKY YO MD Sep 18, 2018 21:16
--- NOTE | 2018-09-18 08:39 | PDOC ---
PULMONARY PROGRESS NOTES Subjective sob better, has cough, no sputum, no pain Vitals Vital Signs Date Time Temp Pulse Resp B/P (MAP) Pulse Ox O2 Delivery O2 Flow Rate FiO2 09/18/18 08:01 93 Room Air 09/18/18 07:00 99.4 101 19 146/85 (105) 99.4 General: Alert, No acute distress HEENT: Other Lungs: Crackles Cardiovascular: S1, S2 Abdomen: Soft, Non-tender Extremities: No Edema Labs Laboratory Tests Test 09/16/18 12:55 09/16/18 16:40 09/17/18 04:00 09/17/18 04:13 White Blood Count 4.2 x10^3/uL (4.0-11.0) 3.3 x10^3/uL (4.0-11.0) Red Blood Count 3.64 x10^6/uL (3.50-5.40) 3.44 x10^6/uL (3.50-5.40) Hemoglobin 11.2 g/dL (12.0-15.5) 10.6 g/dL (12.0-15.5) Hematocrit 34.1 % (36.0-47.0) 32.2 % (36.0-47.0) Mean Corpuscular Volume 94 fL (79-100) 94 fL (79-100) Mean Corpuscular Hemoglobin 31 pg (25-35) 31 pg (25-35) Mean Corpuscular Hemoglobin Concent 33 g/dL (31-37) 33 g/dL (31-37) Red Cell Distribution Width 15.5 % (11.5-14.5) 15.9 % (11.5-14.5) Platelet Count 362 x10^3/uL (140-400) 298 x10^3/uL (140-400) Neutrophils (%) (Auto) 66 % (31-73) 36 % (31-73) Lymphocytes (%) (Auto) 15 % (24-48) 38 % (24-48) Monocytes (%) (Auto) 8 % (0-9) 13 % (0-9) Eosinophils (%) (Auto) 9 % (0-3) 13 % (0-3) Basophils (%) (Auto) 1 % (0-3) 1 % (0-3) Neutrophils # (Auto) 2.8 x10^3uL (1.8-7.7) 1.2 x10^3uL (1.8-7.7) Lymphocytes # (Auto) 0.6 x10^3/uL (1.0-4.8) 1.3 x10^3/uL (1.0-4.8) Monocytes # (Auto) 0.3 x10^3/uL (0.0-1.1) 0.4 x10^3/uL (0.0-1.1) Eosinophils # (Auto) 0.4 x10^3/uL (0.0-0.7) 0.4 x10^3/uL (0.0-0.7) Basophils # (Auto) 0.1 x10^3/uL (0.0-0.2) 0.0 x10^3/uL (0.0-0.2) Prothrombin Time 15.1 SEC (11.7-14.0) Prothromb Time International Ratio 1.2 (0.8-1.1) Sodium Level 141 mmol/L (136-145) 143 mmol/L (136-145) Potassium Level 4.1 mmol/L (3.5-5.1) 3.6 mmol/L (3.5-5.1) Chloride Level 101 mmol/L (98-107) 107 mmol/L (98-107) Carbon Dioxide Level 28 mmol/L (21-32) 28 mmol/L (21-32) Anion Gap 12 (6-14) 8 (6-14) Blood Urea Nitrogen 23 mg/dL (7-20) 18 mg/dL (7-20) Creatinine 1.4 mg/dL (0.6-1.0) 1.1 mg/dL (0.6-1.0) Estimated GFR (Cockcroft-Gault) 36.9 48.7 BUN/Creatinine Ratio 16 (6-20) 16 (6-20) Glucose Level 133 mg/dL (70-99) 79 mg/dL (70-99) Lactic Acid Level 4.0 mmol/L (0.4-2.0) 2.7 mmol/L (0.4-2.0) Calcium Level 8.9 mg/dL (8.5-10.1) 7.9 mg/dL (8.5-10.1) Total Bilirubin 0.3 mg/dL (0.2-1.0) 0.2 mg/dL (0.2-1.0) Aspartate Amino Transf (AST/SGOT) 17 U/L (15-37) 16 U/L (15-37) Alanine Aminotransferase (ALT/SGPT) 16 U/L (14-59) 13 U/L (14-59) Alkaline Phosphatase 57 U/L (46-116) 49 U/L (46-116) Creatine Kinase 23 U/L (26-192) Troponin I Quantitative < 0.017 ng/mL (0.000-0.055) Total Protein 6.4 g/dL (6.4-8.2) 5.6 g/dL (6.4-8.2) Albumin 2.5 g/dL (3.4-5.0) 2.1 g/dL (3.4-5.0) Albumin/Globulin Ratio 0.6 (1.0-1.7) 0.6 (1.0-1.7) Lipase 169 U/L (73-393) Procalcitonin < 0.10 ng/mL (0.00-0.10) Influenza Type A Antigen Negative (NEGATIVE) Influenza Type B Antigen Negative (NEGATIVE) Activated Partial Thromboplast Time 34 SEC (24-38) Fibrinogen 531 mg/dL (200-440) D-Dimer ([place]) 1.92 ug/mlFEU (0.00-0.50) Urine Collection Type Unknown Urine Color Yellow Urine Clarity Clear Urine pH 5.5 Urine Specific [place] 1.010 Urine Protein Negative mg/dL (NEG-TRACE) Urine Glucose (UA) Negative mg/dL (NEG) Urine Ketones (Stick) Negative mg/dL (NEG) Urine Blood Negative (NEG) Urine Nitrite Negative (NEG) Urine Bilirubin Negative (NEG) Urine Urobilinogen Dipstick 0.2 mg/dL (0.2 mg/dL) Urine Leukocyte Esterase Trace (NEG) Urine RBC 0 /HPF (0-2) Urine WBC 1-4 /HPF (0-4) Urine Squamous Epithelial Cells Few /LPF Urine Bacteria 0 /HPF (0-FEW) Test 09/18/18 07:37 White Blood Count 3.9 x10^3/uL (4.0-11.0) Red Blood Count 3.61 x10^6/uL (3.50-5.40) Hemoglobin 11.0 g/dL (12.0-15.5) Hematocrit 33.4 % (36.0-47.0) Mean Corpuscular Volume 93 fL (79-100) Mean Corpuscular Hemoglobin 31 pg (25-35) Mean Corpuscular Hemoglobin Concent 33 g/dL (31-37) Red Cell Distribution Width 16.1 % (11.5-14.5) Platelet Count 325 x10^3/uL (140-400) Neutrophils (%) (Auto) 58 % (31-73) Lymphocytes (%) (Auto) 22 % (24-48) Monocytes (%) (Auto) 10 % (0-9) Eosinophils (%) (Auto) 9 % (0-3) Basophils (%) (Auto) 1 % (0-3) Neutrophils # (Auto) 2.2 x10^3uL (1.8-7.7) Lymphocytes # (Auto) 0.8 x10^3/uL (1.0-4.8) Monocytes # (Auto) 0.4 x10^3/uL (0.0-1.1) Eosinophils # (Auto) 0.4 x10^3/uL (0.0-0.7) Basophils # (Auto) 0.0 x10^3/uL (0.0-0.2) Laboratory Tests Test 09/18/18 07:37 White Blood Count 3.9 x10^3/uL (4.0-11.0) Red Blood Count 3.61 x10^6/uL (3.50-5.40) Hemoglobin 11.0 g/dL (12.0-15.5) Hematocrit 33.4 % (36.0-47.0) Mean Corpuscular Volume 93 fL (79-100) Mean Corpuscular Hemoglobin 31 pg (25-35) Mean Corpuscular Hemoglobin Concent 33 g/dL (31-37) Red Cell Distribution Width 16.1 % (11.5-14.5) Platelet Count 325 x10^3/uL (140-400) Neutrophils (%) (Auto) 58 % (31-73) Lymphocytes (%) (Auto) 22 % (24-48) Monocytes (%) (Auto) 10 % (0-9) Eosinophils (%) (Auto) 9 % (0-3) Basophils (%) (Auto) 1 % (0-3) Neutrophils # (Auto) 2.2 x10^3uL (1.8-7.7) Lymphocytes # (Auto) 0.8 x10^3/uL (1.0-4.8) Monocytes # (Auto) 0.4 x10^3/uL (0.0-1.1) Eosinophils # (Auto) 0.4 x10^3/uL (0.0-0.7) Basophils # (Auto) 0.0 x10^3/uL (0.0-0.2) Medications Active Scripts Medications Dose Route/Sig Max Daily Dose Days Date Category Allopurinol 100 Mg Tablet 1 Tab PO DAILY 09/17/18 Reported Citalopram Hbr (Citalopram Hydrobromide) 10 Mg Tablet 1 Tab PO DAILY 09/17/18 Reported Vitamin D3 (Cholecalciferol (Vitamin D3)) 1,000 Unit Tablet 2 Tab PO DAILY 09/17/18 Reported Complete Multivitamin (Multivits,Th W-Fe,Other Min) 1 Each Tablet 1 Each PO DAILY 09/17/18 Reported Ipratropium [place] 0.2 Mg/1 Ml Solution 0.5 Mg NEB RTQID MDD 1 07/30/18 Rx Omeprazole 40 Mg Capsule.dr 1 Cap PO DAILY 07/19/18 Reported Aspir-Low (Aspirin) 81 Mg Tablet.dr 81 Mg PO DAILY 05/12/18 Reported Benazepril Hcl 20 Mg Tablet 10 Mg PO DAILY 05/12/18 Reported Hydrocodone-Apap 5-325 (Hydrocodone Bit/Acetaminophen) 1 Each Tablet 1 Tab PO PRN Q6HRS PRN 05/12/18 Reported Glimepiride 2 Mg Tablet 1 Tab PO DAILY 04/26/18 Reported Calcium 600 + Vit D 800 Tab (Calcium Carbonate/Vitamin D3) 1 Each Tablet 1 Each PO DAILY 06/15/16 Reported Fish Oil 1,000 Mg Capsule ([place]-3 Fatty Acids/Fish Oil) 1 Each Capsule 1 Each PO DAILY 06/15/16 Reported Metformin Hcl 1,000 Mg Tablet 1,000 Mg PO BID 06/15/16 Reported Furosemide 40 Mg Tablet 40 Mg PO DAILY 12/12/16 Reported Klor-Con M20 (Potassium Chloride) 20 Meq Tab.er.prt 20 Meq PO DAILY 06/15/16 Reported Pravastatin Sodium 40 Mg Tablet 1 Tab PO QHS 06/15/16 Reported Gabapentin (Gabapentin) 100 Mg Capsule 300 Mg PO TID 06/15/16 Reported Metoprolol Tartrate 50 Mg Tablet 50 Mg PO BID 06/15/16 Reported Impression . IMPRESSION: 1. ?sepsis, could be secondary to pneumonia versus others. 2. Lactic acidosis ? secondary to sepsis, improving. 3. Acute bronchitis versus pneumonia. 4. Metastatic breast cancer, immunocompromised. 5. Anemia. 6. Obstructive sleep apnea-hypopnea syndrome. 7. Hypotension, resolved. 8. History of hypertension. 9. Diabetes mellitus. Plan . PLAN AND RECOMMENDATIONS: 1. Titrate FiO2 to keep O2 saturation 92%. 2. cont antibiotic, per id, fu cxs 3. Continue bronchodilator. 4. Lovenox for DVT prophylaxis. 5. Protonix for stress ulcer prophylaxis. 6. Monitor blood pressure. 7. Use CPAP during sleep. The importance of treatment of obstructive sleep apnea-hypopnea syndrome was discussed. 8. ct of chest, to r/o pneumonia The findings and recommendations were discussed with the patient. DOMENICA AYALA MD Sep 18, 2018 08:38
[2018-09-18 08:42] LABS: CREATININE 0.9 mg/dL (0.6-1.0); GFR 61.4
[2018-09-18] MEDS: OMEGA-3 FATTY ACIDS/FISH OIL 1,000 MG CAPSULE. PO SCH (09:00)
[2018-09-18] MEDS ORDERED: ONDANSETRON ODT 4 MG TAB.RAPDIS. PO PRN (09:30)
[2018-09-18] MEDS: BENZONATATE 100 MG CAPSULE. PO SCH ×3 (10:05→20:36)
[2018-09-18] MEDS: GLIMEPIRIDE 2 MG TABLET. PO SCH (10:05)
[2018-09-18] MEDS: CALCIUM CARB/VIT D3 500/200 TABLET. PO SCH (10:05)
[2018-09-18] MEDS: GABAPENTIN 300 MG CAPSULE. PO SCH ×3 (10:05→20:36)
[2018-09-18] MEDS: FUROSEMIDE 40 MG TABLET. PO SCH (10:06)
[2018-09-18] MEDS: ASPIRIN ENTERIC COATED 81 MG TABLET.DR. PO SCH (10:06)
[2018-09-18] MEDS: ENOXAPARIN 40 MG/0.4 ML SYRINGE. SQ SCH ×2 (10:06→20:36)
--- NOTE | 2018-09-18 10:07 | RAD ---
Examination: CT chest without contrast HISTORY: History of cough, pneumonia Comparison: 07/26/2018 TECHNIQUE: Axial CT images of chest were performed without contrast. Coronal and sagittal reformats are performed. Exposure: One or more of the following individualized dose reduction techniques were utilized for this examination: 1. Automated exposure control 2. Adjustment of the mA and/or kV according to patient size 3. Use of iterative reconstruction technique FINDINGS: The central airways are patent. Mild cardiomegaly. Diffuse coronary artery calcifications identified. Moderate aortic atherosclerosis. There is a 4.5 mm noncalcified nodule identified in the right lower lobe of the lung. Minimal bibasilar lung airspace opacities likely atelectasis or infiltrates. The visualized noncontrasted liver, spleen, adrenals grossly appears unremarkable. Postsurgical changes identified in the stomach. Moderate degenerative changes thoracic spine. IMPRESSION: 1. Minimal bibasilar lung airspace opacities likely atelectasis or infiltrates. 2. 4.5 mm noncalcified nodule identified in the right lower lobe of the lung. Follow-up per Fleischner Society guidelines with a follow-up CT in 6-12 months. 3. Diffuse coronary artery calcifications. Electronically signed by: Afshin West MD (09/18/2018 10:03 AM) [facility]
[2018-09-18 10:53] VITALS: BP 142/58
--- NOTE | 2018-09-18 12:32 | PDOC ---
PROGRESS NOTES Chief Complaint Chief Complaint Pneumonia/ atelectasis and history of breast cancer.on chemotherapy IMMUNOCOMPROMISED lactic acidosis pneumonia, she is worried about mold exposure in her basement breast cancer, metastatic to bone morbid obesity, BMI 48 htn dm2, peripheral neuropathy History of Present Illness History of Present Illness still coughing, still meeting sepsis criteria, lactate OK antibiotics ZOSYN, VANC dvt prophylaxis DUONOBS QID O2 SUPPORT Vitals Vitals Vital Signs Date Time Temp Pulse Resp B/P (MAP) Pulse Ox O2 Delivery O2 Flow Rate FiO2 09/18/18 11:42 Room Air 09/18/18 10:53 99.0 102 19 142/58 (86) 94 99.0 Physical Exam Physical Exam GENERAL:Propped up in bed, alert, NAD HEENT: Normal conjunctivae. Oral cavity: Pharynx pink and moist. No thrush/ lesions seen. NECK: Supple. LUNGS: Clear, nonlabored. HEART: S1, S2. ABDOMEN: Obese, soft and nontender with bowel sounds present. EXTREMITIES: No gross edema or cyanosis. SKIN: Warm without generalized rash. She has a small scab to right second toe and a callus to left plantar surface as well as bilateral bunions. Distal pulses palpable. There is no redness or swelling noted. NEUROLOGIC: Alert and oriented x 3. LINES: Port-A-Cath without signs of any complications. Peripheral IV looks okay. General: Alert, Oriented X3, Cooperative, mild distress Heart: Regular rate Lungs: Crackles Abdomen: Normal bowel sounds, Soft Extremities: No clubbing Skin: No rashes Labs LABS Laboratory Tests Test 09/18/18 07:37 09/18/18 11:35 White Blood Count 3.9 x10^3/uL (4.0-11.0) Red Blood Count 3.61 x10^6/uL (3.50-5.40) Hemoglobin 11.0 g/dL (12.0-15.5) Hematocrit 33.4 % (36.0-47.0) Mean Corpuscular Volume 93 fL (79-100) Mean Corpuscular Hemoglobin 31 pg (25-35) Mean Corpuscular Hemoglobin Concent 33 g/dL (31-37) Red Cell Distribution Width 16.1 % (11.5-14.5) Platelet Count 325 x10^3/uL (140-400) Neutrophils (%) (Auto) 58 % (31-73) Lymphocytes (%) (Auto) 22 % (24-48) Monocytes (%) (Auto) 10 % (0-9) Eosinophils (%) (Auto) 9 % (0-3) Basophils (%) (Auto) 1 % (0-3) Neutrophils # (Auto) 2.2 x10^3uL (1.8-7.7) Lymphocytes # (Auto) 0.8 x10^3/uL (1.0-4.8) Monocytes # (Auto) 0.4 x10^3/uL (0.0-1.1) Eosinophils # (Auto) 0.4 x10^3/uL (0.0-0.7) Basophils # (Auto) 0.0 x10^3/uL (0.0-0.2) Creatinine 0.9 mg/dL (0.6-1.0) Estimated GFR (Cockcroft-Gault) 61.4 Lactic Acid Level 2.0 mmol/L (0.4-2.0) Review of Systems Review of Systems cough, insomnia, weakness Assessment and Plan Assessmemt and Plan Problems Medical Problems: (1) Lactic acidosis Status: Acute Comment Review of Relevant I have reviewed the following items uriel (where applicable) has been applied. Labs Laboratory Tests Test 09/16/18 12:55 09/16/18 16:40 09/17/18 04:00 09/17/18 04:13 White Blood Count 4.2 x10^3/uL (4.0-11.0) 3.3 x10^3/uL (4.0-11.0) Red Blood Count 3.64 x10^6/uL (3.50-5.40) 3.44 x10^6/uL (3.50-5.40) Hemoglobin 11.2 g/dL (12.0-15.5) 10.6 g/dL (12.0-15.5) Hematocrit 34.1 % (36.0-47.0) 32.2 % (36.0-47.0) Mean Corpuscular Volume 94 fL (79-100) 94 fL (79-100) Mean Corpuscular Hemoglobin 31 pg (25-35) 31 pg (25-35) Mean Corpuscular Hemoglobin Concent 33 g/dL (31-37) 33 g/dL (31-37) Red Cell Distribution Width 15.5 % (11.5-14.5) 15.9 % (11.5-14.5) Platelet Count 362 x10^3/uL (140-400) 298 x10^3/uL (140-400) Neutrophils (%) (Auto) 66 % (31-73) 36 % (31-73) Lymphocytes (%) (Auto) 15 % (24-48) 38 % (24-48) Monocytes (%) (Auto) 8 % (0-9) 13 % (0-9) Eosinophils (%) (Auto) 9 % (0-3) 13 % (0-3) Basophils (%) (Auto) 1 % (0-3) 1 % (0-3) Neutrophils # (Auto) 2.8 x10^3uL (1.8-7.7) 1.2 x10^3uL (1.8-7.7) Lymphocytes # (Auto) 0.6 x10^3/uL (1.0-4.8) 1.3 x10^3/uL (1.0-4.8) Monocytes # (Auto) 0.3 x10^3/uL (0.0-1.1) 0.4 x10^3/uL (0.0-1.1) Eosinophils # (Auto) 0.4 x10^3/uL (0.0-0.7) 0.4 x10^3/uL (0.0-0.7) Basophils # (Auto) 0.1 x10^3/uL (0.0-0.2) 0.0 x10^3/uL (0.0-0.2) Prothrombin Time 15.1 SEC (11.7-14.0) Prothromb Time International Ratio 1.2 (0.8-1.1) Sodium Level 141 mmol/L (136-145) 143 mmol/L (136-145) Potassium Level 4.1 mmol/L (3.5-5.1) 3.6 mmol/L (3.5-5.1) Chloride Level 101 mmol/L (98-107) 107 mmol/L (98-107) Carbon Dioxide Level 28 mmol/L (21-32) 28 mmol/L (21-32) Anion Gap 12 (6-14) 8 (6-14) Blood Urea Nitrogen 23 mg/dL (7-20) 18 mg/dL (7-20) Creatinine 1.4 mg/dL (0.6-1.0) 1.1 mg/dL (0.6-1.0) Estimated GFR (Cockcroft-Gault) 36.9 48.7 BUN/Creatinine Ratio 16 (6-20) 16 (6-20) Glucose Level 133 mg/dL (70-99) 79 mg/dL (70-99) Lactic Acid Level 4.0 mmol/L (0.4-2.0) 2.7 mmol/L (0.4-2.0) Calcium Level 8.9 mg/dL (8.5-10.1) 7.9 mg/dL (8.5-10.1) Total Bilirubin 0.3 mg/dL (0.2-1.0) 0.2 mg/dL (0.2-1.0) Aspartate Amino Transf (AST/SGOT) 17 U/L (15-37) 16 U/L (15-37) Alanine Aminotransferase (ALT/SGPT) 16 U/L (14-59) 13 U/L (14-59) Alkaline Phosphatase 57 U/L (46-116) 49 U/L (46-116) Creatine Kinase 23 U/L (26-192) Troponin I Quantitative < 0.017 ng/mL (0.000-0.055) Total Protein 6.4 g/dL (6.4-8.2) 5.6 g/dL (6.4-8.2) Albumin 2.5 g/dL (3.4-5.0) 2.1 g/dL (3.4-5.0) Albumin/Globulin Ratio 0.6 (1.0-1.7) 0.6 (1.0-1.7) Lipase 169 U/L (73-393) Procalcitonin < 0.10 ng/mL (0.00-0.10) Influenza Type A Antigen Negative (NEGATIVE) Influenza Type B Antigen Negative (NEGATIVE) Activated Partial Thromboplast Time 34 SEC (24-38) Fibrinogen 531 mg/dL (200-440) D-Dimer ([place]) 1.92 ug/mlFEU (0.00-0.50) Urine Collection Type Unknown Urine Color Yellow Urine Clarity Clear Urine pH 5.5 Urine Specific [place] 1.010 Urine Protein Negative mg/dL (NEG-TRACE) Urine Glucose (UA) Negative mg/dL (NEG) Urine Ketones (Stick) Negative mg/dL (NEG) Urine Blood Negative (NEG) Urine Nitrite Negative (NEG) Urine Bilirubin Negative (NEG) Urine Urobilinogen Dipstick 0.2 mg/dL (0.2 mg/dL) Urine Leukocyte Esterase Trace (NEG) Urine RBC 0 /HPF (0-2) Urine WBC 1-4 /HPF (0-4) Urine Squamous Epithelial Cells Few /LPF Urine Bacteria 0 /HPF (0-FEW) Test 09/18/18 07:37 09/18/18 11:35 White Blood Count 3.9 x10^3/uL (4.0-11.0) Red Blood Count 3.61 x10^6/uL (3.50-5.40) Hemoglobin 11.0 g/dL (12.0-15.5) Hematocrit 33.4 % (36.0-47.0) Mean Corpuscular Volume 93 fL (79-100) Mean Corpuscular Hemoglobin 31 pg (25-35) Mean Corpuscular Hemoglobin Concent 33 g/dL (31-37) Red Cell Distribution Width 16.1 % (11.5-14.5) Platelet Count 325 x10^3/uL (140-400) Neutrophils (%) (Auto) 58 % (31-73) Lymphocytes (%) (Auto) 22 % (24-48) Monocytes (%) (Auto) 10 % (0-9) Eosinophils (%) (Auto) 9 % (0-3) Basophils (%) (Auto) 1 % (0-3) Neutrophils # (Auto) 2.2 x10^3uL (1.8-7.7) Lymphocytes # (Auto) 0.8 x10^3/uL (1.0-4.8) Monocytes # (Auto) 0.4 x10^3/uL (0.0-1.1) Eosinophils # (Auto) 0.4 x10^3/uL (0.0-0.7) Basophils # (Auto) 0.0 x10^3/uL (0.0-0.2) Creatinine 0.9 mg/dL (0.6-1.0) Estimated GFR (Cockcroft-Gault) 61.4 Lactic Acid Level 2.0 mmol/L (0.4-2.0) Laboratory Tests Test 09/18/18 07:37 09/18/18 11:35 White Blood Count 3.9 x10^3/uL (4.0-11.0) Red Blood Count 3.61 x10^6/uL (3.50-5.40) Hemoglobin 11.0 g/dL (12.0-15.5) Hematocrit 33.4 % (36.0-47.0) Mean Corpuscular Volume 93 fL (79-100) Mean Corpuscular Hemoglobin 31 pg (25-35) Mean Corpuscular Hemoglobin Concent 33 g/dL (31-37) Red Cell Distribution Width 16.1 % (11.5-14.5) Platelet Count 325 x10^3/uL (140-400) Neutrophils (%) (Auto) 58 % (31-73) Lymphocytes (%) (Auto) 22 % (24-48) Monocytes (%) (Auto) 10 % (0-9) Eosinophils (%) (Auto) 9 % (0-3) Basophils (%) (Auto) 1 % (0-3) Neutrophils # (Auto) 2.2 x10^3uL (1.8-7.7) Lymphocytes # (Auto) 0.8 x10^3/uL (1.0-4.8) Monocytes # (Auto) 0.4 x10^3/uL (0.0-1.1) Eosinophils # (Auto) 0.4 x10^3/uL (0.0-0.7) Basophils # (Auto) 0.0 x10^3/uL (0.0-0.2) Creatinine 0.9 mg/dL (0.6-1.0) Estimated GFR (Cockcroft-Gault) 61.4 Lactic Acid Level 2.0 mmol/L (0.4-2.0) Microbiology 09/16/18 Blood Culture - Preliminary, Resulted NO GROWTH AFTER 1 DAY Medications Current Medications Sodium Chloride 1,000 ml @ 1,000 mls/hr 1X ONCE IV Last administered on at 12:55; Start 09/16/18 at 12:30; Stop 09/16/18 at 13:29; Status DC Vancomycin HCl (Vanco Per Pharmacy) 1 each PRN DAILY PRN MC SEE COMMENTS; Start 09/16/18 at 14:45; Status UNV Piperacillin Sod/ Tazobactam Sod 3.375 gm/Sodium Chloride 50 ml @ 100 mls/hr 1X ONCE IV Last administered on 09/16/18at 15:16; Start 09/16/18 at 14:45; Stop 09/16/18 at 15:14; Status DC Sodium Chloride 1,000 ml @ 125 mls/hr Q8H IV Last administered on 09/17/18at 07 :52; Start 09/16/18 at 14:36; Stop 09/17/18 at 14:35; Status DC Sodium Chloride 1,000 ml @ 1,000 mls/hr 1X ONCE IV Last administered on at 15:17; Start 09/16/18 at 14:45; Stop 09/16/18 at 15:44; Status DC Vancomycin HCl 2 gm/Sodium Chloride 500 ml @ 250 mls/hr 1X ONCE IV Last administered on 09/16/18at 17:11; Start 09/16/18 at 15:00; Stop 09/16/18 at 16:59 ; Status DC Piperacillin Sod/ Tazobactam Sod 3.375 gm/Sodium Chloride 50 ml @ 100 mls/hr Q6HRS IV ; Start 09/16/18 at 18:00; Stop 09/16/18 at 18:00; Status DC Aspirin (Ecotrin) 81 mg DAILY PO Last administered on 09/18/18at 10:06; Start at 09:00 Furosemide (Lasix) 40 mg DAILY PO Last administered on 09/18/18at 10:06; Start 09/17/18 at 09:00 Gabapentin (Neurontin) 300 mg TID PO Last administered on 09/18/18at 10:05; Start 09/16/18 at 21:00 Glimepiride (Amaryl) 2 mg DAILY PO Last administered on 09/18/18at 10:05; Start 09/17/18 at 09:00 Acetaminophen/ Hydrocodone Bitart (Lortab 5/325) 1 tab PRN Q6HRS PRN PO PAIN; Start 09/16/18 at 15:30 Ipratropium [place] (Atrovent) 0.5 mg RTQID NEB Last administered on 09/18/18at 11:42; Start 09/16/18 at 16:00 Fish Oil (Fish Oil) 1,000 mg DAILY PO ; Start 09/17/18 at 09:00 Potassium Chloride (Klor-Con) 20 meq DAILYWBKFT PO Last administered on at 07:54; Start 09/17/18 at 08:00 Benzonatate (Tessalon Perle) 100 mg [id number] PO Last administered on 09/18/18at 10 :05; Start 09/16/18 at 21:00 Calcium/Vitamin D ([place]scal D 500mg/ 200uts) 1 tab DAILYWBKFT PO Last administered on 09/18/18at 10:05; Start 09/17/18 at 08:00 Pantoprazole Sodium (Protonix) 40 mg DAILYAC PO Last administered on 09/18/18at 07:44; Start 09/17/18 at 07:30 Atorvastatin Calcium (Lipitor) 10 mg QHS PO Last administered on 09/17/18at 20: 37; Start 09/16/18 at 21:00 Vancomycin HCl (Vanco Per Pharmacy) 1 each PRN DAILY PRN MC SEE COMMENTS Last administered on 09/17/18at 09:14; Start 09/16/18 at 15:30 Enoxaparin Sodium (Lovenox 40mg Syringe) 40 mg Q24H SQ ; Start 09/16/18 at 16:00 ; Stop 09/16/18 at 16:00; Status DC Piperacillin Sod/ Tazobactam Sod 4.5 gm/Sodium Chloride 100 ml @ 200 mls/hr Q6HRS IV Last administered on 09/18/18at 12:06; Start 09/16/18 at 19:00 Enoxaparin Sodium (Lovenox 40mg Syringe) 40 mg Q12HR SQ Last administered on at 10:06; Start 09/16/18 at 21:00 Sodium Chloride 1,000 ml @ 1,860 mls/hr Q33M IV ; Start 09/16/18 at 15:35; Stop 09/16/18 at 16:35; Status DC Sodium Chloride 500 ml @ 1,000 mls/hr PRN Q30MIN PRN IV SEE COMMENTS; Start at 15:45 Vancomycin HCl 1.5 gm/Sodium Chloride 500 ml @ 250 mls/hr Q24H IV ; Start 09/17 at 17:00; Stop 09/17/18 at 17:00; Status DC Vancomycin HCl (Vancomycin Trough Level) 1 each 1X ONCE MC ; Start 09/18/18 at 16:30; Stop 09/18/18 at 16:31 Acetaminophen (Tylenol) 650 mg PRN Q6HRS PRN PO TEMP Last administered on 09/17at 16:29; Start 09/16/18 at 21:00 Vancomycin HCl 2 gm/Sodium Chloride 500 ml @ 250 mls/hr Q24H IV Last administered on 09/17/18at 16:25; Start 09/17/18 at 17:00 Ondansetron HCl (Zofran Odt) 4 mg PRN Q8HRS PRN PO NAUSEA/VOMITING Last administered on 09/18/18at 09:23; Start 09/18/18 at 09:30 Active Scripts Active Ipratropium [place] 0.2 Mg/1 Ml Solution 0.5 Mg NEB RTQID MDD 1 Reported Allopurinol 100 Mg Tablet 1 Tab PO DAILY Citalopram Hbr (Citalopram Hydrobromide) 10 Mg Tablet 1 Tab PO DAILY Vitamin D3 (Cholecalciferol (Vitamin D3)) 1,000 Unit Tablet 2 Tab PO DAILY Complete Multivitamin (Multivits,Th W-Fe,Other Min) 1 Each Tablet 1 Each PO DAILY Omeprazole 40 Mg Capsule. 1 Cap PO DAILY Aspir-Low (Aspirin) 81 Mg Tablet. 81 Mg PO DAILY Benazepril Hcl 20 Mg Tablet 10 Mg PO DAILY Hydrocodone-Apap 5-325 (Hydrocodone Bit/Acetaminophen) 1 Each Tablet 1 Tab PO PRN Q6HRS PRN Glimepiride 2 Mg Tablet 1 Tab PO DAILY Calcium 600 + Vit D 800 Tab (Calcium Carbonate/Vitamin D3) 1 Each Tablet 1 Each PO DAILY Fish Oil 1,000 Mg Capsule ([place]-3 Fatty Acids/Fish Oil) 1 Each Capsule 1 Each PO DAILY Metformin Hcl 1,000 Mg Tablet 1,000 Mg PO BID Furosemide 40 Mg Tablet 40 Mg PO DAILY Klor-Con M20 (Potassium Chloride) 20 Meq Tab.er.prt 20 Meq PO DAILY Pravastatin Sodium 40 Mg Tablet 1 Tab PO QHS Gabapentin (Gabapentin) 100 Mg Capsule 300 Mg PO TID Metoprolol Tartrate 50 Mg Tablet 50 Mg PO BID Vitals/I & O Vital Sign - Last 24 Hours 09/17/18 09/17/18 09/17/18 09/17/18 15:00 15:54 19:00 19:10 Temp 98.4 98.1 98.4 98.1 Pulse 97 65 Resp B/P (MAP) 114/65 (81) 120/66 (84) Pulse Ox 93 95 O2 Delivery Room Air Room Air Room Air Room Air 09/17/18 09/17/18 09/18/18 09/18/18 19:43 22:36 03:00 07:00 Temp 98.2 99.9 99.4 98.2 99.9 99.4 Pulse 87 107 101 Resp B/P (MAP) 140/65 (90) 164/85 (111) 146/85 (105) Pulse Ox 95 94 95 95 O2 Delivery Room Air Room Air BiPAP/CPAP BiPAP/CPAP 09/18/18 09/18/18 09/18/18 09/18/18 07:45 08:01 10:53 11:42 Temp 99.0 99.0 Pulse 102 Resp B/P (MAP) 142/58 (86) Pulse Ox 93 94 O2 Delivery Room Air Room Air Room Air Room Air Intake and Output 09/17/18 09/17/18 09/18/18 15:00 23:00 07:00 Intake Total 1100 ml 600 ml 200 ml Balance 1100 ml 600 ml 200 ml ALIN CARBONE MD Sep 18, 2018 12:32
[2018-09-18 15:01] VITALS: BP 127/67
[2018-09-18 17:09] LABS: VANC TR 10.6 mcg/mL (10.0-20.0)
[2018-09-18] MEDS: VANCOMYCIN 2 GM in IV NORMAL SALINE 500ML BAG 500 ML IV SCH (17:16)
[2018-09-18] MEDS: VANCOMYCIN PER PHARMACY MC PRN (17:48)
--- NOTE | 2018-09-18 17:49 | NUR ---
Pharmacy Vancomycin Dosing Note S: Consulted to monitor and dose vancomycin started 09/16/18. O: BRITT LAMBERT is a 73 year old F with Pneumonia. Other Antibiotics: zosyn LABS: Last BUN: 18 Last Creatinine: 0.9 Creatinine Clearance: 71 mL/min Last WBC: 3.9 Last Procalcitonin: <0.1 Tmax (past 24 hours): 99.8 Drug Levels: Last Trough level: 10.6 on 09/18/18 at 1630 Last dose given 09/18/18 at 1716 Vancomycin Dosing: Dosing Weight: Actual Target Trough: 15-20 A: Based on: low Trough and improved renal function P: 1. Change Vancomycin to 1750 mg IV q12h 2. Follow up Trough level 09/20/18 4730 3. Pharmacy will continue to monitor, follow and adjust therapy as needed. SUMA BROWN [facility], 09/18/18 [id number]
[2018-09-18 19:00] VITALS: BP 143/66
[2018-09-18] MEDS: ATORVASTATIN CALCIUM 10 MG TABLET. PO SCH (20:36)
[2018-09-18] MEDS: ACETAMINOPHEN 325 MG TABLET. PO PRN (20:36)
[2018-09-18 23:00] VITALS: BP 158/84
[2018-09-19 03:00] VITALS: BP 145/61
[2018-09-19] MEDS ORDERED: VANCOMYCIN 1.75 GM in IV NORMAL SALINE 500ML BAG 500 ML IV SCH (05:00)
[2018-09-19] MEDS: PIPERACILLIN/TAZOBACTAM 4.5 GM in IV NORMAL SALINE 100ML 100 ML IV SCH (06:18)
[2018-09-19] MEDS: HYDROcodone/APAP 5/325MG 1 TAB TABLET PO PRN ×2 (06:21→14:15)
[2018-09-19 07:00] VITALS: BP 113/55
[2018-09-19] MEDS: IPRATROPIUM BROMIDE 0.5 MG/2.5 ML NEBU. NEB SCH ×4 (07:55→19:13)
[2018-09-19 08:09] LABS: BASO % 1 % (0-3); EOS # 0.3 x10^3/uL (0.0-0.7); EOS % 9 % (0-3); HEMATOCRIT 34.1 % (36.0-47.0); HEMOGLOBIN 11.1 g/dL (12.0-15.5); LYMPH # 1.2 x10^3/uL (1.0-4.8); LYMPH % 37 % (24-48); MEAN CORPUSCULAR HEMOGLOBIN 30 pg (25-35); MEAN CORPUSCULAR HGB CONC 33 g/dL (31-37); MEAN CORPUSCULAR VOLUME 93 fL (79-100); MONO # 0.5 x10^3/uL (0.0-1.1); MONO % 15 % (0-9); NEUT # 1.2 x10^3uL (1.8-7.7); NEUT % 38 % (31-73); PLATELET COUNT 312 x10^3/uL (140-400); RED BLOOD COUNT 3.69 x10^6/uL (3.50-5.40); WHITE BLOOD COUNT 3.2 x10^3/uL (4.0-11.0)
[2018-09-19] MEDS: PANTOPRAZOLE 40 MG TABLET.DR. PO SCH (08:14)
[2018-09-19] MEDS: POTASSIUM CHLORIDE 20 MEQ TABLET.ER. PO SCH (08:15)
[2018-09-19] MEDS: CALCIUM CARB/VIT D3 500/200 TABLET. PO SCH (08:15)
[2018-09-19] MEDS: GLIMEPIRIDE 2 MG TABLET. PO SCH (08:16)
[2018-09-19] MEDS: BENZONATATE 100 MG CAPSULE. PO SCH ×3 (08:16→20:55)
[2018-09-19] MEDS: ASPIRIN ENTERIC COATED 81 MG TABLET.DR. PO SCH (08:16)
[2018-09-19] MEDS: FUROSEMIDE 40 MG TABLET. PO SCH (08:16)
[2018-09-19] MEDS: GABAPENTIN 300 MG CAPSULE. PO SCH ×3 (08:16→20:55)
[2018-09-19] MEDS: OMEGA-3 FATTY ACIDS/FISH OIL 1,000 MG CAPSULE. PO SCH (08:17)
[2018-09-19] MEDS: ENOXAPARIN 40 MG/0.4 ML SYRINGE. SQ SCH ×2 (08:19→20:55)
[2018-09-19 08:33] LABS: ALBUMIN 2.1 g/dL (3.4-5.0); ALBUMIN/GLOBULIN RATIO 0.5 (1.0-1.7); CALCIUM 7.7 mg/dL (8.5-10.1); GFR 54.3; POTASSIUM 3.1 mmol/L (3.5-5.1); TOTAL BILIRUBIN 0.3 mg/dL (0.2-1.0)
--- NOTE | 2018-09-19 09:30 | NUR ---
SW following pt for anticipated dc needs. Chart reviewed. Pt lives at home with family. SW requested for PT/OT eval and tx order as recommended by rehab screen. SW will continue to assess dc needs. Discussed with RN.
--- NOTE | 2018-09-19 10:26 | PDOC ---
Infectious Disease Note Subjective Subjective feeling much better, some cough + ROS ROS no n/v/d/sob Vital Sign Vital Signs Vital Signs Date Time Temp Pulse Resp B/P (MAP) Pulse Ox O2 Delivery O2 Flow Rate FiO2 09/19/18 07:57 94 Room Air 09/19/18 07:21 18 09/19/18 07:00 98.8 89 113/55 (74) 98.8 Physical Exam PHYSICAL EXAM GENERAL:Propped up in bed, alert, NAD HEENT: Normal conjunctivae. Oral cavity: Pharynx pink and moist. No thrush/ lesions seen. NECK: Supple. LUNGS: Clear, nonlabored. HEART: S1, S2. ABDOMEN: Obese, soft and nontender with bowel sounds present. EXTREMITIES: No gross edema or cyanosis. SKIN: Warm without generalized rash. She has a small scab to right second toe and a callus to left plantar surface as well as bilateral bunions. Distal pulses palpable. There is no redness or swelling noted. NEUROLOGIC: Alert and oriented x 3. LINES: Port-A-Cath without signs of any complications. Peripheral IV looks okay. Labs Lab Laboratory Tests Test 09/18/18 11:35 09/18/18 16:30 09/19/18 07:25 Lactic Acid Level 2.0 mmol/L (0.4-2.0) Vancomycin Level Trough 10.6 mcg/mL (10.0-20.0) Vancomycin Last Dose Date 09/17/18 Vancomycin Last Dose Time 1700 White Blood Count 3.2 x10^3/uL (4.0-11.0) Red Blood Count 3.69 x10^6/uL (3.50-5.40) Hemoglobin 11.1 g/dL (12.0-15.5) Hematocrit 34.1 % (36.0-47.0) Mean Corpuscular Volume 93 fL (79-100) Mean Corpuscular Hemoglobin 30 pg (25-35) Mean Corpuscular Hemoglobin Concent 33 g/dL (31-37) Red Cell Distribution Width 16.0 % (11.5-14.5) Platelet Count 312 x10^3/uL (140-400) Neutrophils (%) (Auto) 38 % (31-73) Lymphocytes (%) (Auto) 37 % (24-48) Monocytes (%) (Auto) 15 % (0-9) Eosinophils (%) (Auto) 9 % (0-3) Basophils (%) (Auto) 1 % (0-3) Neutrophils # (Auto) 1.2 x10^3uL (1.8-7.7) Lymphocytes # (Auto) 1.2 x10^3/uL (1.0-4.8) Monocytes # (Auto) 0.5 x10^3/uL (0.0-1.1) Eosinophils # (Auto) 0.3 x10^3/uL (0.0-0.7) Basophils # (Auto) 0.0 x10^3/uL (0.0-0.2) Sodium Level 140 mmol/L (136-145) Potassium Level 3.1 mmol/L (3.5-5.1) Chloride Level 102 mmol/L (98-107) Carbon Dioxide Level 28 mmol/L (21-32) Anion Gap 10 (6-14) Blood Urea Nitrogen 9 mg/dL (7-20) Creatinine 1.0 mg/dL (0.6-1.0) Estimated GFR (Cockcroft-Gault) 54.3 BUN/Creatinine Ratio 9 (6-20) Glucose Level 81 mg/dL (70-99) Calcium Level 7.7 mg/dL (8.5-10.1) Total Bilirubin 0.3 mg/dL (0.2-1.0) Aspartate Amino Transf (AST/SGOT) 26 U/L (15-37) Alanine Aminotransferase (ALT/SGPT) 18 U/L (14-59) Alkaline Phosphatase 47 U/L (46-116) Total Protein 6.0 g/dL (6.4-8.2) Albumin 2.1 g/dL (3.4-5.0) Albumin/Globulin Ratio 0.5 (1.0-1.7) Micro Microbiology 09/16/18 Blood Culture - Preliminary, Resulted NO GROWTH AFTER 2 DAYS Objective Assessment Lactic acidosis,,,better Leukopenia Acute bronchitis Right foot pain, arthritic changes and bunion deformity Stage 4 recurrent breast cancer undergoing palliative chemo via port Renal insufficiency Morbid obesity Sulfa allergy h/o gout Plan Plan of Care change antibiotics to po augmentin d/c home soon ANDREW RAMOS MD Sep 19, 2018 10:26
[2018-09-19 11:00] VITALS: BP 131/72
--- NOTE | 2018-09-19 11:13 | PDOC ---
PULMONARY PROGRESS NOTES Subjective sob better, has cough, no sputum, no pain Vitals Vital Signs Date Time Temp Pulse Resp B/P (MAP) Pulse Ox O2 Delivery O2 Flow Rate FiO2 09/19/18 07:57 94 Room Air 09/19/18 07:21 18 09/19/18 07:00 98.8 89 113/55 (74) 98.8 General: Alert, No acute distress HEENT: Other Lungs: Clear Cardiovascular: S1, S2 Abdomen: Soft, Non-tender Extremities: No Edema Labs Laboratory Tests Test 09/18/18 07:37 09/18/18 11:35 09/18/18 16:30 09/19/18 07:25 White Blood Count 3.9 x10^3/uL (4.0-11.0) 3.2 x10^3/uL (4.0-11.0) Red Blood Count 3.61 x10^6/uL (3.50-5.40) 3.69 x10^6/uL (3.50-5.40) Hemoglobin 11.0 g/dL (12.0-15.5) 11.1 g/dL (12.0-15.5) Hematocrit 33.4 % (36.0-47.0) 34.1 % (36.0-47.0) Mean Corpuscular Volume 93 fL (79-100) 93 fL (79-100) Mean Corpuscular Hemoglobin 31 pg (25-35) 30 pg (25-35) Mean Corpuscular Hemoglobin Concent 33 g/dL (31-37) 33 g/dL (31-37) Red Cell Distribution Width 16.1 % (11.5-14.5) 16.0 % (11.5-14.5) Platelet Count 325 x10^3/uL (140-400) 312 x10^3/uL (140-400) Neutrophils (%) (Auto) 58 % (31-73) 38 % (31-73) Lymphocytes (%) (Auto) 22 % (24-48) 37 % (24-48) Monocytes (%) (Auto) 10 % (0-9) 15 % (0-9) Eosinophils (%) (Auto) 9 % (0-3) 9 % (0-3) Basophils (%) (Auto) 1 % (0-3) 1 % (0-3) Neutrophils # (Auto) 2.2 x10^3uL (1.8-7.7) 1.2 x10^3uL (1.8-7.7) Lymphocytes # (Auto) 0.8 x10^3/uL (1.0-4.8) 1.2 x10^3/uL (1.0-4.8) Monocytes # (Auto) 0.4 x10^3/uL (0.0-1.1) 0.5 x10^3/uL (0.0-1.1) Eosinophils # (Auto) 0.4 x10^3/uL (0.0-0.7) 0.3 x10^3/uL (0.0-0.7) Basophils # (Auto) 0.0 x10^3/uL (0.0-0.2) 0.0 x10^3/uL (0.0-0.2) Creatinine 0.9 mg/dL (0.6-1.0) 1.0 mg/dL (0.6-1.0) Estimated GFR (Cockcroft-Gault) 61.4 54.3 Lactic Acid Level 2.0 mmol/L (0.4-2.0) Vancomycin Level Trough 10.6 mcg/mL (10.0-20.0) Vancomycin Last Dose Date 09/17/18 Vancomycin Last Dose Time 1700 Sodium Level 140 mmol/L (136-145) Potassium Level 3.1 mmol/L (3.5-5.1) Chloride Level 102 mmol/L (98-107) Carbon Dioxide Level 28 mmol/L (21-32) Anion Gap 10 (6-14) Blood Urea Nitrogen 9 mg/dL (7-20) BUN/Creatinine Ratio 9 (6-20) Glucose Level 81 mg/dL (70-99) Calcium Level 7.7 mg/dL (8.5-10.1) Total Bilirubin 0.3 mg/dL (0.2-1.0) Aspartate Amino Transf (AST/SGOT) 26 U/L (15-37) Alanine Aminotransferase (ALT/SGPT) 18 U/L (14-59) Alkaline Phosphatase 47 U/L (46-116) Total Protein 6.0 g/dL (6.4-8.2) Albumin 2.1 g/dL (3.4-5.0) Albumin/Globulin Ratio 0.5 (1.0-1.7) Laboratory Tests Test 09/18/18 11:35 09/18/18 16:30 09/19/18 07:25 Lactic Acid Level 2.0 mmol/L (0.4-2.0) Vancomycin Level Trough 10.6 mcg/mL (10.0-20.0) Vancomycin Last Dose Date 09/17/18 Vancomycin Last Dose Time 1700 White Blood Count 3.2 x10^3/uL (4.0-11.0) Red Blood Count 3.69 x10^6/uL (3.50-5.40) Hemoglobin 11.1 g/dL (12.0-15.5) Hematocrit 34.1 % (36.0-47.0) Mean Corpuscular Volume 93 fL (79-100) Mean Corpuscular Hemoglobin 30 pg (25-35) Mean Corpuscular Hemoglobin Concent 33 g/dL (31-37) Red Cell Distribution Width 16.0 % (11.5-14.5) Platelet Count 312 x10^3/uL (140-400) Neutrophils (%) (Auto) 38 % (31-73) Lymphocytes (%) (Auto) 37 % (24-48) Monocytes (%) (Auto) 15 % (0-9) Eosinophils (%) (Auto) 9 % (0-3) Basophils (%) (Auto) 1 % (0-3) Neutrophils # (Auto) 1.2 x10^3uL (1.8-7.7) Lymphocytes # (Auto) 1.2 x10^3/uL (1.0-4.8) Monocytes # (Auto) 0.5 x10^3/uL (0.0-1.1) Eosinophils # (Auto) 0.3 x10^3/uL (0.0-0.7) Basophils # (Auto) 0.0 x10^3/uL (0.0-0.2) Sodium Level 140 mmol/L (136-145) Potassium Level 3.1 mmol/L (3.5-5.1) Chloride Level 102 mmol/L (98-107) Carbon Dioxide Level 28 mmol/L (21-32) Anion Gap 10 (6-14) Blood Urea Nitrogen 9 mg/dL (7-20) Creatinine 1.0 mg/dL (0.6-1.0) Estimated GFR (Cockcroft-Gault) 54.3 BUN/Creatinine Ratio 9 (6-20) Glucose Level 81 mg/dL (70-99) Calcium Level 7.7 mg/dL (8.5-10.1) Total Bilirubin 0.3 mg/dL (0.2-1.0) Aspartate Amino Transf (AST/SGOT) 26 U/L (15-37) Alanine Aminotransferase (ALT/SGPT) 18 U/L (14-59) Alkaline Phosphatase 47 U/L (46-116) Total Protein 6.0 g/dL (6.4-8.2) Albumin 2.1 g/dL (3.4-5.0) Albumin/Globulin Ratio 0.5 (1.0-1.7) Medications Active Scripts Medications Dose Route/Sig Max Daily Dose Days Date Category Allopurinol 100 Mg Tablet 1 Tab PO DAILY 09/17/18 Reported Citalopram Hbr (Citalopram Hydrobromide) 10 Mg Tablet 1 Tab PO DAILY 09/17/18 Reported Vitamin D3 (Cholecalciferol (Vitamin D3)) 1,000 Unit Tablet 2 Tab PO DAILY 09/17/18 Reported Complete Multivitamin (Multivits,Th W-Fe,Other Min) 1 Each Tablet 1 Each PO DAILY 09/17/18 Reported Ipratropium [place] 0.2 Mg/1 Ml Solution 0.5 Mg NEB RTQID MDD 1 07/30/18 Rx Omeprazole 40 Mg Capsule. 1 Cap PO DAILY 07/19/18 Reported Aspir-Low (Aspirin) 81 Mg Tablet. 81 Mg PO DAILY 05/12/18 Reported Benazepril Hcl 20 Mg Tablet 10 Mg PO DAILY 05/12/18 Reported Hydrocodone-Apap 5-325 (Hydrocodone Bit/Acetaminophen) 1 Each Tablet 1 Tab PO PRN Q6HRS PRN 05/12/18 Reported Glimepiride 2 Mg Tablet 1 Tab PO DAILY 04/26/18 Reported Calcium 600 + Vit D 800 Tab (Calcium Carbonate/Vitamin D3) 1 Each Tablet 1 Each PO DAILY 06/15/16 Reported Fish Oil 1,000 Mg Capsule ([place]-3 Fatty Acids/Fish Oil) 1 Each Capsule 1 Each PO DAILY 06/15/16 Reported Metformin Hcl 1,000 Mg Tablet 1,000 Mg PO BID 06/15/16 Reported Furosemide 40 Mg Tablet 40 Mg PO DAILY 06/15/16 Reported Klor-Con M20 (Potassium Chloride) 20 Meq Tab.er.prt 20 Meq PO DAILY 06/15/16 Reported Pravastatin Sodium 40 Mg Tablet 1 Tab PO QHS 06/15/16 Reported Gabapentin (Gabapentin) 100 Mg Capsule 300 Mg PO TID 06/15/16 Reported Metoprolol Tartrate 50 Mg Tablet 50 Mg PO BID 06/15/16 Reported Impression . IMPRESSION: 1. Cough secondary to acute bronchitis /?pneumonia versus basal atelectasis 2. Lactic acidosis ? secondary to sepsis, improving. 3. Acute bronchitis versus ?pneumonia. 4. Metastatic breast cancer, immunocompromised. 5. Anemia. 6. Obstructive sleep apnea-hypopnea syndrome. 7. Hypotension, resolved. 8. History of hypertension. 9. Diabetes mellitus. Plan . PLAN AND RECOMMENDATIONS: 1. Titrate FiO2 to keep O2 saturation 92%. 2. cont antibiotic, per id, fu cxs 3. Continue bronchodilator. 4. Lovenox for DVT prophylaxis. 5. Protonix for stress ulcer prophylaxis. 6. Monitor blood pressure. 7. Use CPAP during sleep. The importance of treatment of obstructive sleep apnea-hypopnea syndrome was discussed.she is on 10 cm H20. Needs a new machine 8. ct of chest, reviewed. 4.5 mm RLL nodule. f/u in 6 months The findings and recommendations were discussed with the patient. APRYL HUFF MD Sep 19, 2018 11:13
--- NOTE | 2018-09-19 11:34 | PDOC ---
PROGRESS NOTES Chief Complaint Chief Complaint Pneumonia/ atelectasis and history of breast cancer.on chemotherapy IMMUNOCOMPROMISED lactic acidosis pneumonia, she is worried about mold exposure in her basement breast cancer, metastatic to bone morbid obesity, BMI 48 htn dm2, peripheral neuropathy Anemia. Obstructive sleep apnea-hypopnea syndrome. Hypotension, resolved. History of Present Illness History of Present Illness still coughing, still meeting sepsis criteria, lactate OK Just told her at home tested positive for influenza Plan antibiotics ZOSYN, VANC Start PPX tamiflu 75mg Daily for 10 days Check mag Replace potassium dvt prophylaxis DUONOBS QID O2 SUPPORT Vitals Vitals Vital Signs Date Time Temp Pulse Resp B/P (MAP) Pulse Ox O2 Delivery O2 Flow Rate FiO2 09/19/18 11:00 98.4 88 20 131/72 (91) 92 Room Air 98.4 Physical Exam Physical Exam GENERAL:Propped up in bed, alert, NAD HEENT: Normal conjunctivae. Oral cavity: Pharynx pink and moist. No thrush/ lesions seen. NECK: Supple. LUNGS: Clear, nonlabored. HEART: S1, S2. ABDOMEN: Obese, soft and nontender with bowel sounds present. EXTREMITIES: No gross edema or cyanosis. SKIN: Warm without generalized rash. She has a small scab to right second toe and a callus to left plantar surface as well as bilateral bunions. Distal pulses palpable. There is no redness or swelling noted. NEUROLOGIC: Alert and oriented x 3. LINES: Port-A-Cath without signs of any complications. Peripheral IV looks okay. General: Alert, Oriented X3, Cooperative, mild distress Heart: Regular rate Lungs: Clear Abdomen: Normal bowel sounds, Soft Extremities: No clubbing Skin: No rashes Labs LABS Laboratory Tests Test 09/18/18 11:35 09/18/18 16:30 09/19/18 07:25 Lactic Acid Level 2.0 mmol/L (0.4-2.0) Vancomycin Level Trough 10.6 mcg/mL (10.0-20.0) Vancomycin Last Dose Date 09/17/18 Vancomycin Last Dose Time 1700 White Blood Count 3.2 x10^3/uL (4.0-11.0) Red Blood Count 3.69 x10^6/uL (3.50-5.40) Hemoglobin 11.1 g/dL (12.0-15.5) Hematocrit 34.1 % (36.0-47.0) Mean Corpuscular Volume 93 fL (79-100) Mean Corpuscular Hemoglobin 30 pg (25-35) Mean Corpuscular Hemoglobin Concent 33 g/dL (31-37) Red Cell Distribution Width 16.0 % (11.5-14.5) Platelet Count 312 x10^3/uL (140-400) Neutrophils (%) (Auto) 38 % (31-73) Lymphocytes (%) (Auto) 37 % (24-48) Monocytes (%) (Auto) 15 % (0-9) Eosinophils (%) (Auto) 9 % (0-3) Basophils (%) (Auto) 1 % (0-3) Neutrophils # (Auto) 1.2 x10^3uL (1.8-7.7) Lymphocytes # (Auto) 1.2 x10^3/uL (1.0-4.8) Monocytes # (Auto) 0.5 x10^3/uL (0.0-1.1) Eosinophils # (Auto) 0.3 x10^3/uL (0.0-0.7) Basophils # (Auto) 0.0 x10^3/uL (0.0-0.2) Sodium Level 140 mmol/L (136-145) Potassium Level 3.1 mmol/L (3.5-5.1) Chloride Level 102 mmol/L (98-107) Carbon Dioxide Level 28 mmol/L (21-32) Anion Gap 10 (6-14) Blood Urea Nitrogen 9 mg/dL (7-20) Creatinine 1.0 mg/dL (0.6-1.0) Estimated GFR (Cockcroft-Gault) 54.3 BUN/Creatinine Ratio 9 (6-20) Glucose Level 81 mg/dL (70-99) Calcium Level 7.7 mg/dL (8.5-10.1) Total Bilirubin 0.3 mg/dL (0.2-1.0) Aspartate Amino Transf (AST/SGOT) 26 U/L (15-37) Alanine Aminotransferase (ALT/SGPT) 18 U/L (14-59) Alkaline Phosphatase 47 U/L (46-116) Total Protein 6.0 g/dL (6.4-8.2) Albumin 2.1 g/dL (3.4-5.0) Albumin/Globulin Ratio 0.5 (1.0-1.7) Assessment and Plan Assessmemt and Plan Problems Medical Problems: (1) Lactic acidosis Status: Acute Comment Review of Relevant I have reviewed the following items uriel (where applicable) has been applied. Labs Laboratory Tests Test 09/18/18 07:37 09/18/18 11:35 09/18/18 16:30 09/19/18 07:25 White Blood Count 3.9 x10^3/uL (4.0-11.0) 3.2 x10^3/uL (4.0-11.0) Red Blood Count 3.61 x10^6/uL (3.50-5.40) 3.69 x10^6/uL (3.50-5.40) Hemoglobin 11.0 g/dL (12.0-15.5) 11.1 g/dL (12.0-15.5) Hematocrit 33.4 % (36.0-47.0) 34.1 % (36.0-47.0) Mean Corpuscular Volume 93 fL (79-100) 93 fL (79-100) Mean Corpuscular Hemoglobin 31 pg (25-35) 30 pg (25-35) Mean Corpuscular Hemoglobin Concent 33 g/dL (31-37) 33 g/dL (31-37) Red Cell Distribution Width 16.1 % (11.5-14.5) 16.0 % (11.5-14.5) Platelet Count 325 x10^3/uL (140-400) 312 x10^3/uL (140-400) Neutrophils (%) (Auto) 58 % (31-73) 38 % (31-73) Lymphocytes (%) (Auto) 22 % (24-48) 37 % (24-48) Monocytes (%) (Auto) 10 % (0-9) 15 % (0-9) Eosinophils (%) (Auto) 9 % (0-3) 9 % (0-3) Basophils (%) (Auto) 1 % (0-3) 1 % (0-3) Neutrophils # (Auto) 2.2 x10^3uL (1.8-7.7) 1.2 x10^3uL (1.8-7.7) Lymphocytes # (Auto) 0.8 x10^3/uL (1.0-4.8) 1.2 x10^3/uL (1.0-4.8) Monocytes # (Auto) 0.4 x10^3/uL (0.0-1.1) 0.5 x10^3/uL (0.0-1.1) Eosinophils # (Auto) 0.4 x10^3/uL (0.0-0.7) 0.3 x10^3/uL (0.0-0.7) Basophils # (Auto) 0.0 x10^3/uL (0.0-0.2) 0.0 x10^3/uL (0.0-0.2) Creatinine 0.9 mg/dL (0.6-1.0) 1.0 mg/dL (0.6-1.0) Estimated GFR (Cockcroft-Gault) 61.4 54.3 Lactic Acid Level 2.0 mmol/L (0.4-2.0) Vancomycin Level Trough 10.6 mcg/mL (10.0-20.0) Vancomycin Last Dose Date 09/17/18 Vancomycin Last Dose Time 1700 Sodium Level 140 mmol/L (136-145) Potassium Level 3.1 mmol/L (3.5-5.1) Chloride Level 102 mmol/L (98-107) Carbon Dioxide Level 28 mmol/L (21-32) Anion Gap 10 (6-14) Blood Urea Nitrogen 9 mg/dL (7-20) BUN/Creatinine Ratio 9 (6-20) Glucose Level 81 mg/dL (70-99) Calcium Level 7.7 mg/dL (8.5-10.1) Total Bilirubin 0.3 mg/dL (0.2-1.0) Aspartate Amino Transf (AST/SGOT) 26 U/L (15-37) Alanine Aminotransferase (ALT/SGPT) 18 U/L (14-59) Alkaline Phosphatase 47 U/L (46-116) Total Protein 6.0 g/dL (6.4-8.2) Albumin 2.1 g/dL (3.4-5.0) Albumin/Globulin Ratio 0.5 (1.0-1.7) Laboratory Tests Test 09/18/18 11:35 3/17/19 16:30 09/19/18 07:25 Lactic Acid Level 2.0 mmol/L (0.4-2.0) Vancomycin Level Trough 10.6 mcg/mL (10.0-20.0) Vancomycin Last Dose Date 09/17/18 Vancomycin Last Dose Time 1700 White Blood Count 3.2 x10^3/uL (4.0-11.0) Red Blood Count 3.69 x10^6/uL (3.50-5.40) Hemoglobin 11.1 g/dL (12.0-15.5) Hematocrit 34.1 % (36.0-47.0) Mean Corpuscular Volume 93 fL (79-100) Mean Corpuscular Hemoglobin 30 pg (25-35) Mean Corpuscular Hemoglobin Concent 33 g/dL (31-37) Red Cell Distribution Width 16.0 % (11.5-14.5) Platelet Count 312 x10^3/uL (140-400) Neutrophils (%) (Auto) 38 % (31-73) Lymphocytes (%) (Auto) 37 % (24-48) Monocytes (%) (Auto) 15 % (0-9) Eosinophils (%) (Auto) 9 % (0-3) Basophils (%) (Auto) 1 % (0-3) Neutrophils # (Auto) 1.2 x10^3uL (1.8-7.7) Lymphocytes # (Auto) 1.2 x10^3/uL (1.0-4.8) Monocytes # (Auto) 0.5 x10^3/uL (0.0-1.1) Eosinophils # (Auto) 0.3 x10^3/uL (0.0-0.7) Basophils # (Auto) 0.0 x10^3/uL (0.0-0.2) Sodium Level 140 mmol/L (136-145) Potassium Level 3.1 mmol/L (3.5-5.1) Chloride Level 102 mmol/L (98-107) Carbon Dioxide Level 28 mmol/L (21-32) Anion Gap 10 (6-14) Blood Urea Nitrogen 9 mg/dL (7-20) Creatinine 1.0 mg/dL (0.6-1.0) Estimated GFR (Cockcroft-Gault) 54.3 BUN/Creatinine Ratio 9 (6-20) Glucose Level 81 mg/dL (70-99) Calcium Level 7.7 mg/dL (8.5-10.1) Total Bilirubin 0.3 mg/dL (0.2-1.0) Aspartate Amino Transf (AST/SGOT) 26 U/L (15-37) Alanine Aminotransferase (ALT/SGPT) 18 U/L (14-59) Alkaline Phosphatase 47 U/L (46-116) Total Protein 6.0 g/dL (6.4-8.2) Albumin 2.1 g/dL (3.4-5.0) Albumin/Globulin Ratio 0.5 (1.0-1.7) Microbiology 09/16/18 Blood Culture - Preliminary, Resulted NO GROWTH AFTER 2 DAYS Medications Current Medications Sodium Chloride 1,000 ml @ 1,000 mls/hr 1X ONCE IV Last administered on at 12:55; Start 09/16/18 at 12:30; Stop 09/16/18 at 13:29; Status DC Vancomycin HCl (Vanco Per Pharmacy) 1 each PRN DAILY PRN MC SEE COMMENTS; Start 09/16/18 at 14:45; Status UNV Piperacillin Sod/ Tazobactam Sod 3.375 gm/Sodium Chloride 50 ml @ 100 mls/hr 1X ONCE IV Last administered on 09/16/18at 15:16; Start 09/16/18 at 14:45; Stop 09/16/18 at 15:14; Status DC Sodium Chloride 1,000 ml @ 125 mls/hr Q8H IV Last administered on 09/17/18at 07 :52; Start 09/16/18 at 14:36; Stop 09/17/18 at 14:35; Status DC Sodium Chloride 1,000 ml @ 1,000 mls/hr 1X ONCE IV Last administered on at 15:17; Start 09/16/18 at 14:45; Stop 09/16/18 at 15:44; Status DC Vancomycin HCl 2 gm/Sodium Chloride 500 ml @ 250 mls/hr 1X ONCE IV Last administered on 09/16/18at 17:11; Start 09/16/18 at 15:00; Stop 09/16/18 at 16:59 ; Status DC Piperacillin Sod/ Tazobactam Sod 3.375 gm/Sodium Chloride 50 ml @ 100 mls/hr Q6HRS IV ; Start 09/16/18 at 18:00; Stop 09/16/18 at 18:00; Status DC Aspirin (Ecotrin) 81 mg DAILY PO Last administered on 09/19/18 08:16; Start at 09:00 Furosemide (Lasix) 40 mg DAILY PO Last administered on 09/19/18 08:16; Start 09/17/18 at 09:00 Gabapentin (Neurontin) 300 mg TID PO Last administered on 09/19/18 08:16; Start 09/16/18 at 21:00 Glimepiride (Amaryl) 2 mg DAILY PO Last administered on 09/19/18 08:16; Start 09/17/18 at 09:00 Acetaminophen/ Hydrocodone Bitart (Lortab 5/325) 1 tab PRN Q6HRS PRN PO PAIN Last administered on 09/19/18 06:21; Start 09/16/18 at 15:30 Ipratropium [place] (Atrovent) 0.5 mg RTQID NEB Last administered on 09/19/18 07:55; Start 09/16/18 at 16:00 Fish Oil (Fish Oil) 1,000 mg DAILY PO ; Start 09/17/18 at 09:00 Potassium Chloride (Klor-Con) 20 meq [id number] PO Last administered on 08:15; Start 09/17/18 at 08:00 Benzonatate (Tessalon Perle) 100 mg [id number] PO Last administered on 09/19/18 08 :16; Start 09/16/18 at 21:00 Calcium/Vitamin D (Oscal D 500mg/ 200uts) 1 tab [id number] PO Last administered on 09/19/18 08:15; Start 09/17/18 at 08:00 Pantoprazole Sodium (Protonix) 40 mg DAILYAC PO Last administered on 09/19/18 08:14; Start 09/17/18 at 07:30 Atorvastatin Calcium (Lipitor) 10 mg QHS PO Last administered on 09/18/18 20: 36; Start 09/16/18 at 21:00 Vancomycin HCl (Vanco Per Pharmacy) 1 each PRN DAILY PRN MC SEE COMMENTS Last administered on 09/18/18 17:48; Start 09/16/18 at 15:30; Stop 09/19/18 at 10:28 ; Status DC Enoxaparin Sodium (Lovenox 40mg Syringe) 40 mg Q24H SQ ; Start 09/16/18 at 16:00 ; Stop 09/16/18 at 16:00; Status DC Piperacillin Sod/ Tazobactam Sod 4.5 gm/Sodium Chloride 100 ml @ 200 mls/hr Q6HRS IV Last administered on 09/19/18at 06:18; Start 09/16/18 at 19:00; Stop at 10:26; Status DC Enoxaparin Sodium (Lovenox 40mg Syringe) 40 mg Q12HR SQ Last administered on at 08:19; Start 09/16/18 at 21:00 Sodium Chloride 1,000 ml @ 1,860 mls/hr Q33M IV ; Start 09/16/18 at 15:35; Stop 09/16/18 at 16:35; Status DC Sodium Chloride 500 ml @ 1,000 mls/hr PRN Q30MIN PRN IV SEE COMMENTS; Start at 15:45 Vancomycin HCl 1.5 gm/Sodium Chloride 500 ml @ 250 mls/hr Q24H IV ; Start 09/17 at 17:00; Stop 09/17/18 at 17:00; Status DC Vancomycin HCl (Vancomycin Trough Level) 1 each 1X ONCE MC Last administered on 09/18/18at 16:30; Start 09/18/18 at 16:30; Stop 09/18/18 at 16:31; Status DC Acetaminophen (Tylenol) 650 mg PRN Q6HRS PRN PO TEMP Last administered on 09/18at 20:36; Start 09/16/18 at 21:00 Vancomycin HCl 2 gm/Sodium Chloride 500 ml @ 250 mls/hr Q24H IV Last administered on 09/18/18at 17:16; Start 09/17/18 at 17:00; Stop 09/18/18 at 21:00 ; Status DC Ondansetron HCl (Zofran Odt) 4 mg PRN Q8HRS PRN PO NAUSEA/VOMITING Last administered on 09/18/18at 09:23; Start 09/18/18 at 09:30 Vancomycin HCl 1.75 gm/Sodium Chloride 500 ml @ 250 mls/hr Q12H IV Last administered on 09/19/18at 04:17; Start 09/19/18 at 05:00; Stop 09/19/18 at 10:26 ; Status DC Vancomycin HCl (Vancomycin Trough Level) 1 each 1X ONCE MC ; Start 09/20/18 at 04:30; Stop 09/20/18 at 04:31; Status Cancel Amoxicillin/ Clavulanate Potassium (Augmentin 875/ 125mg) 1 tab BID PO ; Start 09/19/18 at 11:00 Active Scripts Active Ipratropium [place] 0.2 Mg/1 Ml Solution 0.5 Mg NEB RTQID MDD 1 Reported Allopurinol 100 Mg Tablet 1 Tab PO DAILY Citalopram Hbr (Citalopram Hydrobromide) 10 Mg Tablet 1 Tab PO DAILY Vitamin D3 (Cholecalciferol (Vitamin D3)) 1,000 Unit Tablet 2 Tab PO DAILY Complete Multivitamin (Multivits,Th W-Fe,Other Min) 1 Each Tablet 1 Each PO DAILY Omeprazole 40 Mg Capsule.dr 1 Cap PO DAILY Aspir-Low (Aspirin) 81 Mg Tablet.dr 81 Mg PO DAILY Benazepril Hcl 20 Mg Tablet 10 Mg PO DAILY Hydrocodone-Apap 5-325 (Hydrocodone Bit/Acetaminophen) 1 Each Tablet 1 Tab PO PRN Q6HRS PRN Glimepiride 2 Mg Tablet 1 Tab PO DAILY Calcium 600 + Vit D 800 Tab (Calcium Carbonate/Vitamin D3) 1 Each Tablet 1 Each PO DAILY Fish Oil 1,000 Mg Capsule ([place]-3 Fatty Acids/Fish Oil) 1 Each Capsule 1 Each PO DAILY Metformin Hcl 1,000 Mg Tablet 1,000 Mg PO BID Furosemide 40 Mg Tablet 40 Mg PO DAILY Klor-Con M20 (Potassium Chloride) 20 Meq Tab.er.prt 20 Meq PO DAILY Pravastatin Sodium 40 Mg Tablet 1 Tab PO QHS Gabapentin (Gabapentin) 100 Mg Capsule 300 Mg PO TID Metoprolol Tartrate 50 Mg Tablet 50 Mg PO BID Vitals/I & O Vital Sign - Last 24 Hours 09/18/18 09/18/18 09/18/18 09/18/18 11:42 15:01 15:18 19:00 Temp 99.8 98.6 99.8 98.6 Pulse 94 100 Resp 18 B/P (MAP) 127/67 (87) 143/66 (91) Pulse Ox 91 97 O2 Delivery Room Air Room Air Room Air Room Air 09/18/18 09/18/18 09/18/18 09/19/18 19:05 19:44 23:00 03:00 Temp 98.3 98.1 98.3 98.1 Pulse 91 94 Resp 18 18 B/P (MAP) 158/84 (108) 145/61 (89) Pulse Ox 97 90 90 O2 Delivery Room Air Room Air Room Air Room Air 09/19/18 09/19/18 09/19/18 09/19/18 06:21 07:00 07:21 07:57 Temp 98.8 98.8 Pulse 89 Resp 20 20 18 B/P (MAP) 113/55 (74) Pulse Ox 90 94 94 O2 Delivery Room Air Room Air Room Air Room Air 09/19/18 11:00 Temp 98.4 98.4 Pulse 88 Resp 20 B/P (MAP) 131/72 (91) Pulse Ox 92 O2 Delivery Room Air Intake and Output 09/18/18 09/18/18 09/19/18 14:59 22:59 06:59 Intake Total 840 ml 820 ml Balance 840 ml 820 ml FREDERICK FLORES MD Sep 19, 2018 11:34
[2018-09-19] MEDS ORDERED: POTASSIUM CHLORIDE 20 MEQ TABLET.ER. PO ONE (11:45)
[2018-09-19] MEDS: AMOXICILLIN/K CLAV 875/125MG TABLET. PO SCH ×2 (12:32→20:55)
[2018-09-19] MEDS ORDERED: MAGNESIUM SULFATE 4GM 100 ML IV ONE ×2 (13:00→19:00)
[2018-09-19] MEDS: OSELTAMIVIR 75 MG CAPSULE PO SCH (14:14)
[2018-09-19 15:00] VITALS: BP 135/70
[2018-09-19 19:00] VITALS: BP 128/56
[2018-09-19] MEDS: ATORVASTATIN CALCIUM 10 MG TABLET. PO SCH (20:55)
[2018-09-19 23:00] VITALS: BP 125/57
[2018-09-20 03:00] VITALS: BP 133/70
[2018-09-20 07:00] VITALS: BP 119/50
[2018-09-20] MEDS: IPRATROPIUM BROMIDE 0.5 MG/2.5 ML NEBU. NEB SCH ×2 (08:00→11:52)
--- NOTE | 2018-09-20 08:12 | PDOC ---
PROGRESS NOTES Chief Complaint Chief Complaint Pneumonia/ atelectasis and history of breast cancer.on chemotherapy IMMUNOCOMPROMISED lactic acidosis pneumonia, she is worried about mold exposure in her basement breast cancer, metastatic to bone morbid obesity, BMI 48 htn dm2, peripheral neuropathy Anemia. Obstructive sleep apnea-hypopnea syndrome - on CPAP, needs new CPAP per pulm Hypotension, resolved. History of Present Illness History of Present Illness Coughing, feels better Just told her at home tested positive for influenza and now states he is positive for GAS as well Plan antibiotics ZOSYN, VANC --> PO augmentin Started PPX tamiflu 75mg Daily for 10 days Check mag Replace potassium dvt prophylaxis DUONOBS QID O2 SUPPORT QHS CPAP Vitals Vitals Vital Signs Date Time Temp Pulse Resp B/P (MAP) Pulse Ox O2 Delivery O2 Flow Rate FiO2 09/20/18 08:00 94 Room Air 09/20/18 03:00 98.6 103 18 133/70 (91) 98.6 Physical Exam Physical Exam GENERAL:Propped up in bed, alert, NAD HEENT: Normal conjunctivae. Oral cavity: Pharynx pink and moist. No thrush/ lesions seen. NECK: Supple. LUNGS: Clear, nonlabored. HEART: S1, S2. ABDOMEN: Obese, soft and nontender with bowel sounds present. EXTREMITIES: No gross edema or cyanosis. SKIN: Warm without generalized rash. She has a small scab to right second toe and a callus to left plantar surface as well as bilateral bunions. Distal pulses palpable. There is no redness or swelling noted. NEUROLOGIC: Alert and oriented x 3. LINES: Port-A-Cath without signs of any complications. Peripheral IV looks okay. General: Alert, Oriented X3, Cooperative, mild distress Heart: Regular rate Lungs: Clear Abdomen: Normal bowel sounds, Soft Extremities: No clubbing Skin: No rashes Assessment and Plan Assessmemt and Plan Problems Medical Problems: (1) Lactic acidosis Status: Acute Comment Review of Relevant I have reviewed the following items uriel (where applicable) has been applied. Labs Laboratory Tests Test 09/18/18 11:35 09/18/18 16:30 09/19/18 07:25 Lactic Acid Level 2.0 mmol/L (0.4-2.0) Vancomycin Level Trough 10.6 mcg/mL (10.0-20.0) Vancomycin Last Dose Date 09/17/18 Vancomycin Last Dose Time 1700 White Blood Count 3.2 x10^3/uL (4.0-11.0) Red Blood Count 3.69 x10^6/uL (3.50-5.40) Hemoglobin 11.1 g/dL (12.0-15.5) Hematocrit 34.1 % (36.0-47.0) Mean Corpuscular Volume 93 fL (79-100) Mean Corpuscular Hemoglobin 30 pg (25-35) Mean Corpuscular Hemoglobin Concent 33 g/dL (31-37) Red Cell Distribution Width 16.0 % (11.5-14.5) Platelet Count 312 x10^3/uL (140-400) Neutrophils (%) (Auto) 38 % (31-73) Lymphocytes (%) (Auto) 37 % (24-48) Monocytes (%) (Auto) 15 % (0-9) Eosinophils (%) (Auto) 9 % (0-3) Basophils (%) (Auto) 1 % (0-3) Neutrophils # (Auto) 1.2 x10^3uL (1.8-7.7) Lymphocytes # (Auto) 1.2 x10^3/uL (1.0-4.8) Monocytes # (Auto) 0.5 x10^3/uL (0.0-1.1) Eosinophils # (Auto) 0.3 x10^3/uL (0.0-0.7) Basophils # (Auto) 0.0 x10^3/uL (0.0-0.2) Sodium Level 140 mmol/L (136-145) Potassium Level 3.1 mmol/L (3.5-5.1) Chloride Level 102 mmol/L (98-107) Carbon Dioxide Level 28 mmol/L (21-32) Anion Gap 10 (6-14) Blood Urea Nitrogen 9 mg/dL (7-20) Creatinine 1.0 mg/dL (0.6-1.0) Estimated GFR (Cockcroft-Gault) 54.3 BUN/Creatinine Ratio 9 (6-20) Glucose Level 81 mg/dL (70-99) Calcium Level 7.7 mg/dL (8.5-10.1) Magnesium Level 0.9 mg/dL (1.8-2.4) Total Bilirubin 0.3 mg/dL (0.2-1.0) Aspartate Amino Transf (AST/SGOT) 26 U/L (15-37) Alanine Aminotransferase (ALT/SGPT) 18 U/L (14-59) Alkaline Phosphatase 47 U/L (46-116) Total Protein 6.0 g/dL (6.4-8.2) Albumin 2.1 g/dL (3.4-5.0) Albumin/Globulin Ratio 0.5 (1.0-1.7) Microbiology 09/16/18 Blood Culture - Preliminary, Resulted NO GROWTH AFTER 3 DAYS 09/17/18 Urine Culture - Final, Complete 09/17/18 Urine Culture Result 1 (ELDER) - Final, Complete Medications Current Medications Sodium Chloride 1,000 ml @ 1,000 mls/hr 1X ONCE IV Last administered on at 12:55; Start 09/16/18 at 12:30; Stop 09/16/18 at 13:29; Status DC Vancomycin HCl (Vanco Per Pharmacy) 1 each PRN DAILY PRN MC SEE COMMENTS; Start 09/16/18 at 14:45; Status UNV Piperacillin Sod/ Tazobactam Sod 3.375 gm/Sodium Chloride 50 ml @ 100 mls/hr 1X ONCE IV Last administered on 09/16/18at 15:16; Start 09/16/18 at 14:45; Stop 09/16/18 at 15:14; Status DC Sodium Chloride 1,000 ml @ 125 mls/hr Q8H IV Last administered on 09/17/18at 07 :52; Start 09/16/18 at 14:36; Stop 09/17/18 at 14:35; Status DC Sodium Chloride 1,000 ml @ 1,000 mls/hr 1X ONCE IV Last administered on at 15:17; Start 09/16/18 at 14:45; Stop 09/16/18 at 15:44; Status DC Vancomycin HCl 2 gm/Sodium Chloride 500 ml @ 250 mls/hr 1X ONCE IV Last administered on 09/16/18at 17:11; Start 09/16/18 at 15:00; Stop 09/16/18 at 16:59 ; Status DC Piperacillin Sod/ Tazobactam Sod 3.375 gm/Sodium Chloride 50 ml @ 100 mls/hr Q6HRS IV ; Start 09/16/18 at 18:00; Stop 09/16/18 at 18:00; Status DC Aspirin (Ecotrin) 81 mg DAILY PO Last administered on 09/19/18 08:16; Start at 09:00 Furosemide (Lasix) 40 mg DAILY PO Last administered on 09/19/18 08:16; Start 09/17/18 at 09:00 Gabapentin (Neurontin) 300 mg TID PO Last administered on 09/19/18 20:55; Start 09/16/18 at 21:00 Glimepiride (Amaryl) 2 mg DAILY PO Last administered on 09/19/18 08:16; Start 09/17/18 at 09:00 Acetaminophen/ Hydrocodone Bitart (Lortab 5/325) 1 tab PRN Q6HRS PRN PO PAIN Last administered on 09/19/18 14:15; Start 09/16/18 at 15:30 Ipratropium [place] (Atrovent) 0.5 mg RTQID NEB Last administered on 09/20/18 08:00; Start 09/16/18 at 16:00 Fish Oil (Fish Oil) 1,000 mg DAILY PO ; Start 09/17/18 at 09:00 Potassium Chloride (Klor-Con) 20 meq [id number] PO Last administered on 08:15; Start 09/17/18 at 08:00 Benzonatate (Tessalon Perle) 100 mg [id number] PO Last administered on 09/19/18 20 :55; Start 09/16/18 at 21:00 Calcium/Vitamin D (Oscal D 500mg/ 200uts) 1 tab [id number] PO Last administered on 09/19/18 08:15; Start 09/17/18 at 08:00 Pantoprazole Sodium (Protonix) 40 mg DAILYAC PO Last administered on 09/19/18 08:14; Start 09/17/18 at 07:30 Atorvastatin Calcium (Lipitor) 10 mg QHS PO Last administered on 09/19/18 20: 55; Start 09/16/18 at 21:00 Vancomycin HCl (Vanco Per Pharmacy) 1 each PRN DAILY PRN MC SEE COMMENTS Last administered on 09/18/18at 17:48; Start 09/16/18 at 15:30; Stop 09/19/18 at 10:28 ; Status DC Enoxaparin Sodium (Lovenox 40mg Syringe) 40 mg Q24H SQ ; Start 09/16/18 at 16:00 ; Stop 09/16/18 at 16:00; Status DC Piperacillin Sod/ Tazobactam Sod 4.5 gm/Sodium Chloride 100 ml @ 200 mls/hr Q6HRS IV Last administered on 09/19/18at 06:18; Start 09/16/18 at 19:00; Stop at 10:26; Status DC Enoxaparin Sodium (Lovenox 40mg Syringe) 40 mg Q12HR SQ Last administered on at 20:55; Start 09/16/18 at 21:00 Sodium Chloride 1,000 ml @ 1,860 mls/hr Q33M IV ; Start 09/16/18 at 15:35; Stop 09/16/18 at 16:35; Status DC Sodium Chloride 500 ml @ 1,000 mls/hr PRN Q30MIN PRN IV SEE COMMENTS; Start at 15:45 Vancomycin HCl 1.5 gm/Sodium Chloride 500 ml @ 250 mls/hr Q24H IV ; Start 09/17 at 17:00; Stop 09/17/18 at 17:00; Status DC Vancomycin HCl (Vancomycin Trough Level) 1 each 1X ONCE MC Last administered on 09/18/18at 16:30; Start 09/18/18 at 16:30; Stop 09/18/18 at 16:31; Status DC Acetaminophen (Tylenol) 650 mg PRN Q6HRS PRN PO TEMP Last administered on 09/18at 20:36; Start 09/16/18 at 21:00 Vancomycin HCl 2 gm/Sodium Chloride 500 ml @ 250 mls/hr Q24H IV Last administered on 09/18/18at 17:16; Start 09/17/18 at 17:00; Stop 09/18/18 at 21:00 ; Status DC Ondansetron HCl (Zofran Odt) 4 mg PRN Q8HRS PRN PO NAUSEA/VOMITING Last administered on 09/18/18at 09:23; Start 09/18/18 at 09:30 Vancomycin HCl 1.75 gm/Sodium Chloride 500 ml @ 250 mls/hr Q12H IV Last administered on 09/19/18at 04:17; Start 09/19/18 at 05:00; Stop 09/19/18 at 10:26 ; Status DC Vancomycin HCl (Vancomycin Trough Level) 1 each 1X ONCE MC ; Start 09/20/18 at 04:30; Stop 09/20/18 at 04:31; Status Cancel Amoxicillin/ Clavulanate Potassium (Augmentin 875/ 125mg) 1 tab BID PO Last administered on 09/19/18at 20:55; Start 09/19/18 at 11:00 Potassium Chloride (Klor-Con) 40 meq 1X ONCE PO Last administered on at 12:32; Start 09/19/18 at 11:45; Stop 09/19/18 at 11:46; Status DC Magnesium Sulfate/ Dextrose 100 ml @ 25 mls/hr 1X ONCE IV Last administered on 09/19/18at 14:12; Start 09/19/18 at 13:00; Stop 09/19/18 at 16:59; Status DC Magnesium Sulfate/ Dextrose 100 ml @ 25 mls/hr 1X ONCE IV Last administered on 09/19/18at 20:54; Start 09/19/18 at 19:00; Stop 09/19/18 at 22:59; Status DC Oseltamivir Phosphate (Tamiflu) 75 mg DAILY PO Last administered on 09/19/18at 14:14; Start 09/19/18 at 13:00; Stop 09/28/18 at 09:01 Active Scripts Active Ipratropium [place] 0.2 Mg/1 Ml Solution 0.5 Mg NEB RTQID MDD 1 Reported Allopurinol 100 Mg Tablet 1 Tab PO DAILY Citalopram Hbr (Citalopram Hydrobromide) 10 Mg Tablet 1 Tab PO DAILY Vitamin D3 (Cholecalciferol (Vitamin D3)) 1,000 Unit Tablet 2 Tab PO DAILY Complete Multivitamin (Multivits,Th W-Fe,Other Min) 1 Each Tablet 1 Each PO DAILY Omeprazole 40 Mg Capsule. 1 Cap PO DAILY Aspir-Low (Aspirin) 81 Mg Tablet. 81 Mg PO DAILY Benazepril Hcl 20 Mg Tablet 10 Mg PO DAILY Hydrocodone-Apap 5-325 (Hydrocodone Bit/Acetaminophen) 1 Each Tablet 1 Tab PO PRN Q6HRS PRN Glimepiride 2 Mg Tablet 1 Tab PO DAILY Calcium 600 + Vit D 800 Tab (Calcium Carbonate/Vitamin D3) 1 Each Tablet 1 Each PO DAILY Fish Oil 1,000 Mg Capsule ([place]-3 Fatty Acids/Fish Oil) 1 Each Capsule 1 Each PO DAILY Metformin Hcl 1,000 Mg Tablet 1,000 Mg PO BID Furosemide 40 Mg Tablet 40 Mg PO DAILY Klor-Con M20 (Potassium Chloride) 20 Meq Tab.er.prt 20 Meq PO DAILY Pravastatin Sodium 40 Mg Tablet 1 Tab PO QHS Gabapentin (Gabapentin) 100 Mg Capsule 300 Mg PO TID Metoprolol Tartrate 50 Mg Tablet 50 Mg PO BID Vitals/I & O Vital Sign - Last 24 Hours 09/19/18 09/19/18 09/19/18 09/19/18 11:00 11:54 14:15 15:00 Temp 98.4 98.4 98.4 98.4 Pulse 88 85 Resp 20 20 20 B/P (MAP) 131/72 (91) 135/70 (91) Pulse Ox 92 94 94 O2 Delivery Room Air Room Air Room Air Room Air 09/19/18 09/19/18 09/19/18 09/19/18 15:15 16:00 19:00 19:10 Temp 98.9 98.9 Pulse 89 Resp 20 18 B/P (MAP) 128/56 (80) Pulse Ox 94 92 O2 Delivery Room Air Room Air Room Air Room Air 09/19/18 09/19/18 09/20/18 09/20/18 19:14 23:00 03:00 08:00 Temp 98.5 98.6 98.5 98.6 Pulse 91 103 Resp 18 18 B/P (MAP) 125/57 (79) 133/70 (91) Pulse Ox 96 95 93 94 O2 Delivery Room Air Room Air Room Air Room Air Intake and Output 09/19/18 09/19/18 09/20/18 15:00 23:00 07:00 Intake Total 600 ml 400 ml 460 ml Balance 600 ml 400 ml 460 ml FREDERICK FLORES MD Sep 20, 2018 08:12
[2018-09-20] MEDS: OMEGA-3 FATTY ACIDS/FISH OIL 1,000 MG CAPSULE. PO SCH (09:00)
[2018-09-20] MEDS: FUROSEMIDE 40 MG TABLET. PO SCH (09:15)
[2018-09-20] MEDS: ENOXAPARIN 40 MG/0.4 ML SYRINGE. SQ SCH (09:15)
[2018-09-20] MEDS: OSELTAMIVIR 75 MG CAPSULE PO SCH (09:15)
[2018-09-20] MEDS: GLIMEPIRIDE 2 MG TABLET. PO SCH (09:16)
[2018-09-20] MEDS: POTASSIUM CHLORIDE 20 MEQ TABLET.ER. PO SCH (09:16)
[2018-09-20] MEDS: BENZONATATE 100 MG CAPSULE. PO SCH (09:16)
[2018-09-20] MEDS: PANTOPRAZOLE 40 MG TABLET.DR. PO SCH (09:16)
[2018-09-20] MEDS: AMOXICILLIN/K CLAV 875/125MG TABLET. PO SCH (09:17)
[2018-09-20] MEDS: GABAPENTIN 300 MG CAPSULE. PO SCH (09:17)
[2018-09-20] MEDS: CALCIUM CARB/VIT D3 500/200 TABLET. PO SCH (09:18)
[2018-09-20] MEDS: ASPIRIN ENTERIC COATED 81 MG TABLET.DR. PO SCH (09:18)
[2018-09-20] MEDS: HYDROcodone/APAP 5/325MG 1 TAB TABLET PO PRN (09:19)
--- NOTE | 2018-09-20 09:40 | PDOC ---
Infectious Disease Note Subjective Subjective feeling much better, some cough + ROS ROS no n/v/d/ Vital Sign Vital Signs Vital Signs Date Time Temp Pulse Resp B/P (MAP) Pulse Ox O2 Delivery O2 Flow Rate FiO2 09/20/18 09:19 18 94 Room Air 09/20/18 03:00 98.6 103 133/70 (91) 98.6 Physical Exam PHYSICAL EXAM GENERAL:Propped up in bed, alert, NAD HEENT: Normal conjunctivae. Oral cavity: Pharynx pink and moist. No thrush/ lesions seen. NECK: Supple. LUNGS: Clear, nonlabored. HEART: S1, S2. ABDOMEN: Obese, soft and nontender with bowel sounds present. EXTREMITIES: No gross edema or cyanosis. SKIN: Warm without generalized rash. She has a small scab to right second toe and a callus to left plantar surface as well as bilateral bunions. Distal pulses palpable. There is no redness or swelling noted. NEUROLOGIC: Alert and oriented x 3. LINES: Port-A-Cath without signs of any complications. Peripheral IV looks okay. Labs Micro Microbiology 09/16/18 Blood Culture - Preliminary, Resulted NO GROWTH AFTER 2 DAYS Objective Assessment Lactic acidosis,,,better Leukopenia Acute bronchitis Right foot pain, arthritic changes and bunion deformity Stage 4 recurrent breast cancer undergoing palliative chemo via port Renal insufficiency Morbid obesity Sulfa allergy h/o gout Plan Plan of Care po augmentin d/c home soon ANDREW RAMOS MD Sep 20, 2018 09:40
[2018-09-20 10:54] LABS: MAGNESIUM 2.4 mg/dL (1.8-2.4); POTASSIUM 4.1 mmol/L (3.5-5.1)
[2018-09-20 11:00] VITALS: BP 147/70
[2018-09-20] MEDS ORDERED: AMOX1TAB11 PO (11:29)
[2018-09-20] MEDS ORDERED: OSEL75CA PO (11:29)
--- NOTE | 2018-09-20 11:32 | PDOC3 ---
Discharge Summary Visit Information Date of Admission: Sep 16, 2018 Date of Discharge: Sep 20, 2018 Admitting Diagnosis: Bronchitis Final Diagnosis Problems Medical Problems: (1) Lactic acidosis Status: Acute Bronchitis Influenza contact Brief Hospital Course Allergies Allergies Coded Allergies Type Severity Reaction Last Updated Verified Sulfa (Sulfonamide Antibiotics) Allergy Intermediate 04/26/18 Yes codeine Allergy Intermediate 10/04/14 Yes Vital Signs Vital Signs Date Time Temp Pulse Resp B/P (MAP) Pulse Ox O2 Delivery O2 Flow Rate FiO2 09/20/18 10:19 18 94 Room Air 09/20/18 07:00 97.8 92 119/50 (73) 97.8 Lab Results Laboratory Tests Test 09/18/18 11:35 09/18/18 16:30 09/19/18 07:25 09/20/18 09:45 Lactic Acid Level 2.0 mmol/L (0.4-2.0) Vancomycin Level Trough 10.6 mcg/mL (10.0-20.0) Vancomycin Last Dose Date 09/17/18 Vancomycin Last Dose Time 1700 White Blood Count 3.2 x10^3/uL (4.0-11.0) Red Blood Count 3.69 x10^6/uL (3.50-5.40) Hemoglobin 11.1 g/dL (12.0-15.5) Hematocrit 34.1 % (36.0-47.0) Mean Corpuscular Volume 93 fL (79-100) Mean Corpuscular Hemoglobin 30 pg (25-35) Mean Corpuscular Hemoglobin Concent 33 g/dL (31-37) Red Cell Distribution Width 16.0 % (11.5-14.5) Platelet Count 312 x10^3/uL (140-400) Neutrophils (%) (Auto) 38 % (31-73) Lymphocytes (%) (Auto) 37 % (24-48) Monocytes (%) (Auto) 15 % (0-9) Eosinophils (%) (Auto) 9 % (0-3) Basophils (%) (Auto) 1 % (0-3) Neutrophils # (Auto) 1.2 x10^3uL (1.8-7.7) Lymphocytes # (Auto) 1.2 x10^3/uL (1.0-4.8) Monocytes # (Auto) 0.5 x10^3/uL (0.0-1.1) Eosinophils # (Auto) 0.3 x10^3/uL (0.0-0.7) Basophils # (Auto) 0.0 x10^3/uL (0.0-0.2) Sodium Level 140 mmol/L (136-145) Potassium Level 3.1 mmol/L (3.5-5.1) 4.1 mmol/L (3.5-5.1) Chloride Level 102 mmol/L (98-107) Carbon Dioxide Level 28 mmol/L (21-32) Anion Gap 10 (6-14) Blood Urea Nitrogen 9 mg/dL (7-20) Creatinine 1.0 mg/dL (0.6-1.0) Estimated GFR (Cockcroft-Gault) 54.3 BUN/Creatinine Ratio 9 (6-20) Glucose Level 81 mg/dL (70-99) Calcium Level 7.7 mg/dL (8.5-10.1) Magnesium Level 0.9 mg/dL (1.8-2.4) 2.4 mg/dL (1.8-2.4) Total Bilirubin 0.3 mg/dL (0.2-1.0) Aspartate Amino Transf (AST/SGOT) 26 U/L (15-37) Alanine Aminotransferase (ALT/SGPT) 18 U/L (14-59) Alkaline Phosphatase 47 U/L (46-116) Total Protein 6.0 g/dL (6.4-8.2) Albumin 2.1 g/dL (3.4-5.0) Albumin/Globulin Ratio 0.5 (1.0-1.7) Laboratory Tests Test 09/20/18 09:45 Potassium Level 4.1 mmol/L (3.5-5.1) Magnesium Level 2.4 mg/dL (1.8-2.4) Brief Hospital Course Ms Doherty is a 73-year-old female with stage IV recurrent breast cancer, undergoing palliative chemotherapy. She was sent to the ER 09/16/18 from [facility] for evaluation of hypotension and lightheadedness. She was afebrile with a normal white blood cell count and a lactic acid of 4.0. A chest x-ray showed suspected bilateral lower lobe atelectasis. Urinalysis was unremarkable for infection and blood cultures so far are negative. Her influenza screen was negative as well, but her tested positive for influenza on day 3 of her stay and she was started on PPX tamiflu. She was dosed empirically with vancomycin and Zosyn as well, seen by pulmonology, hematology, ID. Her weakness was explained by her hypomagnesemia of 0.8 and hypokalemia, both of which were replaced via IV. Since admission, she developed a low grade fever of 100.2 with chills She denies nasal/sinus congestion or sore throat. Denies chest discomfort or shortness of air. She has some diarrhea, but denies bloating, cramps, nausea or vomiting. She says her appetite is good. She is most bothered though by right foot pain. She says she is a diabetic and has some neuropathy in her feet , but this pain is a little bit different and is painful and it makes walking difficult. She has a history of gout. She was hospitalized about 2 months ago for pneumonia. Greater than 30 minutes spent on discharge. Sent home on augmentin and ppx tamiflu Coughing, feels better Just told her at home tested positive for influenza and now states he is positive for GAS as well Plan antibiotics ZOSYN, VANC --> PO augmentin Started PPX tamiflu 75mg Daily for 10 days Checked mag Replaced potassium dvt prophylaxis DUONOBS QID O2 SUPPORT QHS CPAP Problems: Pneumonia/ atelectasis and history of breast cancer.on chemotherapy IMMUNOCOMPROMISED lactic acidosis pneumonia, she is worried about mold exposure in her basement breast cancer, metastatic to bone morbid obesity, BMI 48 htn dm2, peripheral neuropathy Anemia. Obstructive sleep apnea-hypopnea syndrome - on CPAP, needs new CPAP per pulm Hypotension, resolved. Discharge Information Condition at Discharge: Improved Follow Up: Weeks (2) Disposition/Orders: D/C to Home Scheduled Allopurinol (Allopurinol) 100 Mg Tablet, 1 TAB PO DAILY for gout, #30 Ref 5 ( Reported) Entered as Reported by: LALI BURNETT on 09/17/18717 Last Action: New Order on 09/17/18717 by LALI BURNETT Amoxicillin/Potassium Clav (Amox Tr-K Clv 875-125 Mg Tab) 1 Each Tablet, 1 TAB PO BID for bronchitis for 7 Days, #14 Prescribed by: FREDERICK FLORES MD on 09/20/18 1129 Aspirin (Aspir-Low) 81 Mg Tablet.dr, 81 MG PO DAILY for heart health, (Reported) Entered as Reported by: KIP BOTELLO on 05/12/18840 Last Action: Continued on 09/16/181528 by COLEEN ANGELA MD Benazepril Hcl (Benazepril Hcl) 20 Mg Tablet, 10 MG PO DAILY for HTN, (Reported) Entered as Reported by: KIP BOTELLO on 05/12/18840 Last Action: HELD on 09/16/181528 by COLEEN ANGELA MD Calcium Carbonate/Vitamin D3 (Calcium 600 + Vit D 800 Tab) 1 Each Tablet, 1 EACH PO DAILY for supplement, (Reported) Entered as Reported by: RHINA ROBBINS on 06/15/16831 Last Action: Converted on 09/16/181528 by COLEEN ANGELA MD Cholecalciferol (Vitamin D3) (Vitamin D3) 1,000 Unit Tablet, 2 TAB PO DAILY for supplement, #30 Ref 5 (Reported) Entered as Reported by: LALI BURNETT on 09/17/18717 Last Action: New Order on 09/17/18717 by LALI BURNETT Citalopram Hydrobromide (Citalopram Hbr) 10 Mg Tablet, 1 TAB PO DAILY for depression, #30 Ref 3 (Reported) Entered as Reported by: LALI BURNETT on 09/17/18717 Last Action: New Order on 09/17/18717 by LALI BURNETT Furosemide (Furosemide) 40 Mg Tablet, 40 MG PO DAILY, (Reported) Entered as Reported by: RHINA ROBBINS on 06/15/16831 Last Action: Continued on 09/16/181528 by COLEEN ANGELA MD Gabapentin (Gabapentin ) 100 Mg Capsule, 300 MG PO TID for diabetic neuropathy , (Reported) Entered as Reported by: RHINA ROBBINS on 06/15/16831 Last Action: Continued on 09/16/181528 by COLEEN ANGELA MD Glimepiride (Glimepiride) 2 Mg Tablet, 1 TAB PO DAILY for diabetes, (Reported) Entered as Reported by: Rosa Espinosa on 04/26/18835 Last Action: Continued on 09/16/181528 by COLEEN ANGELA MD Ipratropium [place] (Ipratropium [place]) 0.2 Mg/1 Ml Solution, 0.5 MG NEB RTQID for soa MDD 1, #30 Prescribed by: ZAYRA PAYTON on 07/30/18904 Last Action: Continued on 09/16/181528 by COLEEN ANGELA MD Metformin Hcl (Metformin Hcl) 1,000 Mg Tablet, 1,000 MG PO BID for diabetes, ( Reported) Entered as Reported by: RHINA ROBBINS on 06/15/16831 Last Action: HELD on 09/16/181528 by COLEEN ANGELA MD Metoprolol Tartrate (Metoprolol Tartrate) 50 Mg Tablet, 50 MG PO BID for hypertension, (Reported) Entered as Reported by: RHINA ROBBINS on 06/15/16831 Last Action: HELD on 09/16/181528 by COLEEN ANGELA MD Multivits,Th W-Fe,Other Min (Complete Multivitamin) 1 Each Tablet, 1 EACH PO DAILY for supplement, (Reported) Entered as Reported by: LALI BURNETT on 09/17/18717 Last Action: New Order on 09/17/18717 by LALI BURNETT [place]-3 Fatty Acids/Fish Oil (Fish Oil 1,000 Mg Capsule) 1 Each Capsule, 1 EACH PO DAILY, (Reported) Entered as Reported by: RHINA ROBBINS on 06/15/16831 Last Action: Continued on 09/16/181528 by COLEEN ANGELA MD Omeprazole (Omeprazole) 40 Mg Capsule.dr, 1 CAP PO DAILY for GERD, #30 Ref 3 ( Reported) Entered as Reported by: Rosa Espinosa on 07/19/18715 Last Action: Converted on 09/16/181528 by COLEEN ANGELA MD Oseltamivir Phosphate (Tamiflu) 75 Mg Capsule, 75 MG PO DAILY for Flu ppx for 8 Days, #8 Prescribed by: FREDERICK FLORES MD on 09/20/181128 Potassium Chloride (Klor-Con M20) 20 Meq Tab.er.prt, 20 MEQ PO DAILY, (Reported) Entered as Reported by: RHINA ROBBINS on 06/15/16831 Last Action: Continued on 09/16/181528 by COLEEN ANGELA MD Pravastatin Sodium (Pravastatin Sodium) 40 Mg Tablet, 1 TAB PO QHS for hyperlipidemia, (Reported) Entered as Reported by: RHINA ROBBINS on 06/15/16 0832 Last Action: Converted on 09/16/181528 by COLEEN ANGELA MD Scheduled PRN Hydrocodone Bit/Acetaminophen (Hydrocodone-Apap 5-325 ) 1 Each Tablet, 1 TAB PO PRN Q6HRS PRN for PAIN, (Reported) Entered as Reported by: KIP BOTELLO on 05/12/18826 Last Action: Continued on 09/16/181528 by MD MARK RAMOS CHRISTOPHER S MD Sep 20, 2018 11:32
--- NOTE | 2018-09-20 11:45 | PDOC ---
PULMONARY PROGRESS NOTES Subjective sob better, has cough, no sputum, no pain Vitals Vital Signs Date Time Temp Pulse Resp B/P (MAP) Pulse Ox O2 Delivery O2 Flow Rate FiO2 09/20/18 10:19 18 94 Room Air 09/20/18 07:00 97.8 92 119/50 (73) 97.8 General: Alert, No acute distress HEENT: Other Lungs: Clear Cardiovascular: S1, S2 Abdomen: Soft, Non-tender Extremities: No Edema Labs Laboratory Tests Test 09/18/18 16:30 09/19/18 07:25 09/20/18 09:45 Vancomycin Level Trough 10.6 mcg/mL (10.0-20.0) Vancomycin Last Dose Date 09/17/18 Vancomycin Last Dose Time 1700 White Blood Count 3.2 x10^3/uL (4.0-11.0) Red Blood Count 3.69 x10^6/uL (3.50-5.40) Hemoglobin 11.1 g/dL (12.0-15.5) Hematocrit 34.1 % (36.0-47.0) Mean Corpuscular Volume 93 fL (79-100) Mean Corpuscular Hemoglobin 30 pg (25-35) Mean Corpuscular Hemoglobin Concent 33 g/dL (31-37) Red Cell Distribution Width 16.0 % (11.5-14.5) Platelet Count 312 x10^3/uL (140-400) Neutrophils (%) (Auto) 38 % (31-73) Lymphocytes (%) (Auto) 37 % (24-48) Monocytes (%) (Auto) 15 % (0-9) Eosinophils (%) (Auto) 9 % (0-3) Basophils (%) (Auto) 1 % (0-3) Neutrophils # (Auto) 1.2 x10^3uL (1.8-7.7) Lymphocytes # (Auto) 1.2 x10^3/uL (1.0-4.8) Monocytes # (Auto) 0.5 x10^3/uL (0.0-1.1) Eosinophils # (Auto) 0.3 x10^3/uL (0.0-0.7) Basophils # (Auto) 0.0 x10^3/uL (0.0-0.2) Sodium Level 140 mmol/L (136-145) Potassium Level 3.1 mmol/L (3.5-5.1) 4.1 mmol/L (3.5-5.1) Chloride Level 102 mmol/L (98-107) Carbon Dioxide Level 28 mmol/L (21-32) Anion Gap 10 (6-14) Blood Urea Nitrogen 9 mg/dL (7-20) Creatinine 1.0 mg/dL (0.6-1.0) Estimated GFR (Cockcroft-Gault) 54.3 BUN/Creatinine Ratio 9 (6-20) Glucose Level 81 mg/dL (70-99) Calcium Level 7.7 mg/dL (8.5-10.1) Magnesium Level 0.9 mg/dL (1.8-2.4) 2.4 mg/dL (1.8-2.4) Total Bilirubin 0.3 mg/dL (0.2-1.0) Aspartate Amino Transf (AST/SGOT) 26 U/L (15-37) Alanine Aminotransferase (ALT/SGPT) 18 U/L (14-59) Alkaline Phosphatase 47 U/L (46-116) Total Protein 6.0 g/dL (6.4-8.2) Albumin 2.1 g/dL (3.4-5.0) Albumin/Globulin Ratio 0.5 (1.0-1.7) Laboratory Tests Test 09/20/18 09:45 Potassium Level 4.1 mmol/L (3.5-5.1) Magnesium Level 2.4 mg/dL (1.8-2.4) Medications Active Scripts Medications Dose Route/Sig Max Daily Dose Days Date Category Allopurinol 100 Mg Tablet 1 Tab PO DAILY 09/17/18 Reported Citalopram Hbr (Citalopram Hydrobromide) 10 Mg Tablet 1 Tab PO DAILY 09/17/18 Reported Vitamin D3 (Cholecalciferol (Vitamin D3)) 1,000 Unit Tablet 2 Tab PO DAILY 09/17/18 Reported Complete Multivitamin (Multivits,Th W-Fe,Other Min) 1 Each Tablet 1 Each PO DAILY 09/17/18 Reported Ipratropium Errol 0.2 Mg/1 Ml Solution 0.5 Mg NEB RTQID MDD 1 07/30/18 Rx Omeprazole 40 Mg Capsule.dr 1 Cap PO DAILY 07/19/18 Reported Aspir-Low (Aspirin) 81 Mg Tablet.dr 81 Mg PO DAILY 05/12/18 Reported Benazepril Hcl 20 Mg Tablet 10 Mg PO DAILY 05/12/18 Reported Hydrocodone-Apap 5-325 (Hydrocodone Bit/Acetaminophen) 1 Each Tablet 1 Tab PO PRN Q6HRS PRN 05/12/18 Reported Glimepiride 2 Mg Tablet 1 Tab PO DAILY 04/26/18 Reported Calcium 600 + Vit D 800 Tab (Calcium Carbonate/Vitamin D3) 1 Each Tablet 1 Each PO DAILY 06/15/16 Reported Fish Oil 1,000 Mg Capsule ([place]-3 Fatty Acids/Fish Oil) 1 Each Capsule 1 Each PO DAILY 06/15/16 Reported Metformin Hcl 1,000 Mg Tablet 1,000 Mg PO BID 06/15/16 Reported Furosemide 40 Mg Tablet 40 Mg PO DAILY 06/15/16 Reported Klor-Con M20 (Potassium Chloride) 20 Meq Tab.er.prt 20 Meq PO DAILY 06/15/16 Reported Pravastatin Sodium 40 Mg Tablet 1 Tab PO QHS 06/15/16 Reported Gabapentin (Gabapentin) 100 Mg Capsule 300 Mg PO TID 06/15/16 Reported Metoprolol Tartrate 50 Mg Tablet 50 Mg PO BID 06/15/16 Reported Impression . IMPRESSION: 1. Cough secondary to acute bronchitis /?pneumonia versus basal atelectasis 2. Lactic acidosis ? secondary to sepsis, improved 3. Acute bronchitis versus ?pneumonia. 4. Metastatic breast cancer, immunocompromised. 5. Anemia. 6. Obstructive sleep apnea-hypopnea syndrome. 7. Hypotension, resolved. 8. History of hypertension. 9. Diabetes mellitus. Plan . PLAN AND RECOMMENDATIONS: 1. Titrate FiO2 to keep O2 saturation 92%. 2. cont antibiotic, per id, fu cxs 3. Continue bronchodilator. 4. Lovenox for DVT prophylaxis. 5. Protonix for stress ulcer prophylaxis. 6. Monitor blood pressure. 7. Use CPAP during sleep. The importance of treatment of obstructive sleep apnea-hypopnea syndrome was discussed.she is on 10 cm H20. Needs a new machine 8. ct of chest, reviewed. 4.5 mm RLL nodule. f/u in 6 months 9. dc plans per PCP APRYL HUFF MD Sep 20, 2018 11:45
--- NOTE | 2018-09-20 15:26 | NUR ---
Discharge Note: BRITT LAMBERT Discharge instructions and discharge home medications reviewed with Patient and a copy given. All questions have been answered and understanding verbalized. The following instructions and handouts were given: Hypotention, pneumonia Discontinued lines and drains: peripheral IV. Patient discharged to Home or Self Care with Spouse via Wheelchair
== END 2018-09-20 15:28 | disposition home or self-care (01) | DRG 871 ==
LOC: ER 11:57 → 5 NORTH 14:30
PROVIDERS: ADMIT Family Medicine; ATTEND Family Medicine
PROC: 5A09357 Assistance with Respiratory Ventilation, Less than 24 Consecutive Hours, Continuous Positive Airway Pressure (ICD-10-PCS; principal; 2018-09-17)
PROC: 5A09357 Assistance with Respiratory Ventilation, Less than 24 Consecutive Hours, Continuous Positive Airway Pressure (ICD-10-PCS; 2018-09-18)
DX: A41.9 Sepsis, unspecified organism (principal); J18.9 Pneumonia, unspecified organism; Z68.42 Body mass index [BMI] 45.0-49.9, adult; C79.51 Secondary malignant neoplasm of bone; J98.11 Atelectasis; Z92.21 Personal history of antineoplastic chemotherapy; E66.01 Morbid (severe) obesity due to excess calories; J20.9 Acute bronchitis, unspecified; I12.9 Hypertensive chronic kidney disease with stage 1 through stage 4 chronic kidney disease, or unspecified chronic kidney disease; N18.9 Chronic kidney disease, unspecified; C50.919 Malignant neoplasm of unspecified site of unspecified female breast; D64.9 Anemia, unspecified; D89.9 Disorder involving the immune mechanism, unspecified; E11.22 Type 2 diabetes mellitus with diabetic chronic kidney disease; E11.42 Type 2 diabetes mellitus with diabetic polyneuropathy; E78.00 Pure hypercholesterolemia, unspecified; E78.5 Hyperlipidemia, unspecified; E83.42 Hypomagnesemia; E87.6 Hypokalemia; G47.33 Obstructive sleep apnea (adult) (pediatric); M10.9 Gout, unspecified; M19.90 Unspecified osteoarthritis, unspecified site; I25.10 Atherosclerotic heart disease of native coronary artery without angina pectoris; K21.9 Gastro-esophageal reflux disease without esophagitis; M21.619 Bunion of unspecified foot; Z82.49 Family history of ischemic heart disease and other diseases of the circulatory system; Z85.3 Personal history of malignant neoplasm of breast; Z83.3 Family history of diabetes mellitus; Z87.01 Personal history of pneumonia (recurrent); Z87.891 Personal history of nicotine dependence; Z88.2 Allergy status to sulfonamides; Z90.13 Acquired absence of bilateral breasts and nipples; Z90.49 Acquired absence of other specified parts of digestive tract; Z90.710 Acquired absence of both cervix and uterus
CPT/HCPCS: 36415; 71045; 71250; 73630; 80053; 80202; 81001; 82550; 82565; 83605; 83690; 83735; 84132; 84145; 84484; 85025; 85379; 85384; 85610; 85730; 87040; 87086; 87804; 93005; 94640; 94760; 96360; J1650; J2543; J3370; J3475; J7030; J7040; J7644; Q0162; 99284-25

== ENCOUNTER → 2018-10-20 | Outpatient (CLI) | payer MEDICARE, OTHER ==
[2018-09-20 11:00] VITALS: BP 147/70
[~2018-10-20] MED LIST changes: +ALLO100T PO; +AMOX1TAB11 PO; +CHOL10003 PO; +CITA10TA4 PO; +MULT-509 PO; +OSEL75CA PO
--- NOTE | 2018-10-20 11:17 | RAD ---
FDG tumor localization scan, PET/CT, 10/20/2018: History: Breast cancer Following IV injection of 15.2 mCi of 18 F-FDG, imaging was performed from the skull base to the proximal thighs. The noncontrast CT component was performed for attenuation correction and anatomic localization purposes rather than for primary diagnosis. The patient's blood glucose level at the time of injection was 175 MG/DL. Comparison is made to a study from 04/21/2018. There are new hypermetabolic infiltrates in the left apex and anterior aspect of the left upper lobe. The apical process demonstrates a maximum SUV of 4.4. There is a lesser degree of hypermetabolic infiltrate along the posterior aspect of left hilum. The hypermetabolic left supraclavicular mass seen on the previous study is no longer evident. It has either been surgically removed or this represents a favorable response to therapy. Correlation with the patient's surgical history is suggested. Physiologic activity is evident in the neck. No hypermetabolic mediastinal lesion is seen. There is abundant GI tract activity, perhaps related to recent chemotherapy. Normal urinary tract activity is present. No hypermetabolic abdominal or pelvic lesion is identified. IMPRESSION: 1. The hypermetabolic left supraclavicular mass has resolved compatible with a favorable response to therapy. 2. Hypermetabolic pulmonary infiltrates have developed in the left upper chest. This most likely represents postradiation change. An infectious process cannot be excluded. 3. No FDG/PET evidence of distant metastatic disease.
== END | disposition home or self-care (01) ==
LOC: PETSC 08:10
PROVIDERS: ATTEND Internal Medicine Hematology & Oncology
DX: C50.812 Malignant neoplasm of overlapping sites of left female breast (principal); R91.8 Other nonspecific abnormal finding of lung field; Z17.1 Estrogen receptor negative status [ER-]
CPT/HCPCS: 78815; A9552

== ENCOUNTER → 2018-12-09 | Outpatient (CLI) | payer MEDICARE, OTHER ==
[~2018-12-09] MED LIST changes: +CONTRAST GIVEN. MC PRN; +IOHEXOL 300 MG/ML 100ML VIAL. IV ONE
--- NOTE | 2018-12-09 12:26 | RAD ---
Left upper extremity venous Doppler ultrasound History: Left upper extremity swelling. History of clavicle cancer. FINDINGS: Left jugular vein, subclavian vein, axillary vein, brachial vein, ulnar vein and radial vein appear patent. Normal phasicity. The basilic vein is patent. The cephalic vein is not well seen. There is an area of focal hypoechoic tissue superior to the clavicle measuring 3.2 cm x 1.9 cm x 1.4 cm. This could represent a small mass or hematoma. This does not demonstrate vascularity. IMPRESSION: 1. No evidence of deep venous thrombosis. 2. Soft tissue lesion superior to the clavicle, compatible with a mass or hematoma. Note this does not demonstrate flow on Doppler images. Electronically signed by: Russell Sosa MD (12/09/2018 12:23 PM) [id number]
--- NOTE | 2018-12-12 09:50 | RAD ---
EXAM: 1. CT neck soft tissues With contrast. 2. CT chest with contrast. HISTORY: Breast cancer. TECHNIQUE: CT of the neck soft tissues and chest was performed after the intravenous administration of 75 mL Omnipaque 300. COMPARISON: 09/18/2018, 10/20/2018. FINDINGS: Bone windows reveal no suspicious lesions. A right-sided port catheter has its tip in the superior cavoatrial junction. There is subcutaneous stranding throughout the left mastectomy bed, supraclavicular region and upper back. This may represent postradiation change. There is no fluid collection. No mass is appreciated in the left mastectomy bed. A scarlike soft tissue density in the left axilla measures 3.3 x 1.2 cm. This is increased since the prior study, but has the appearance of posttreatment change. No discrete enlarged axillary node is seen. There are also changes of right mastectomy. There are no pathologically enlarged cervical lymph nodes. The parotid glands, submandibular glands and thyroid gland are unremarkable. There are no clear laryngeal or pharyngeal lesions. There are no pathologically enlarged mediastinal or hilar lymph nodes. There are diffuse coronary atherosclerotic calcifications. There are also calcifications of the aortic valve. The heart is at the upper limits of normal size. There is no pleural or pericardial effusion. Scarlike density in the left lung apex is consistent with postradiation change. Opacities dependently may represent atelectasis or mild interstitial lung disease. There is a calcified granuloma in the right lower lobe. Images of the upper abdomen reveal a gastric band prosthesis. IMPRESSION: 1. Increased subcutaneous stranding throughout the left mastectomy bed and supraclavicular region. This may represent postradiation change. Correlate clinically. 2. A 3.3 cm scarlike density in the left axilla has increased since 09/18/2018. This appears to represent postsurgical change, but has increased in size. Progressive fat necrosis in the setting of radiation therapy is a consideration. Ongoing follow-up is recommended to exclude left axillary recurrence. 3. Aortic valve calcifications. Correlate for aortic stenosis. *One or more of the following individualized dose reduction techniques were utilized for this examination: 1. Automated exposure control. 2. Adjustment of the mA and/or kV according to patient size. 3. Use of iterative reconstruction technique. Electronically signed by: Hermelinda Karimi MD (12/12/2018 9:47 AM) [facility]
== END | disposition home or self-care (01) ==
LOC: US 10:59
PROVIDERS: ATTEND Internal Medicine Hematology & Oncology
DX: C50.812 Malignant neoplasm of overlapping sites of left female breast (principal); Z17.1 Estrogen receptor negative status [ER-]; R22.1 Localized swelling, mass and lump, neck; I70.0 Atherosclerosis of aorta; I35.0 Nonrheumatic aortic (valve) stenosis; J84.10 Pulmonary fibrosis, unspecified
CPT/HCPCS: 70491; 71260; 93971; Q9967

== ENCOUNTER 2019-01-02 07:05 | Outpatient (CLI) | payer MEDICARE, OTHER ==
[~2019-01-02] VITALS: Ht 165.1 cm; Wt 126.6 kg
[~2019-01-02 07:05] MED LIST changes: -CONTRAST GIVEN. MC PRN; -IOHEXOL 300 MG/ML 100ML VIAL. IV ONE
[2019-01-02 07:39] LABS: BASO # 0.1 x10^3/uL (0.0-0.2); BASO % 1 % (0-3); EOS # 0.8 x10^3/uL (0.0-0.7); EOS % 8 % (0-3); HEMATOCRIT 37.4 % (36.0-47.0); HEMOGLOBIN 12.6 g/dL (12.0-15.5); LYMPH # 1.7 x10^3/uL (1.0-4.8); LYMPH % 16 % (24-48); MEAN CORPUSCULAR HEMOGLOBIN 32 pg (25-35); MEAN CORPUSCULAR HGB CONC 34 g/dL (31-37); MEAN CORPUSCULAR VOLUME 96 fL (79-100); MONO # 0.7 x10^3/uL (0.0-1.1); MONO % 7 % (0-9); NEUT # 7.1 x10^3uL (1.8-7.7); NEUT % 68 % (31-73); PLATELET COUNT 311 x10^3/uL (140-400); RED BLOOD COUNT 3.92 x10^6/uL (3.50-5.40); RED CELL DISTRIBUTION WIDTH 16.7 % (11.5-14.5); WHITE BLOOD COUNT 10.5 x10^3/uL (4.0-11.0)
[2019-01-02 07:44] LABS: PROTHROMBIN TIME PATIENT 13.6 SEC (11.7-14.0)
[2019-01-02] MEDS ORDERED: LIDOCAINE WITH 8.4% SOD BICARB 3 ML DISP.SYRIN. ONE ×2 (08:09→08:35)
[2019-01-02 08:11] VITALS: BP 145/63
[2019-01-02 08:45] VITALS: BP 151/56
[2019-01-02] MEDS ORDERED: LIDOCAINE WITH 8.4% SOD BICARB 3 ML DISP.SYRIN. INJ ONE (08:45)
[2019-01-02] MEDS ORDERED: HEPARIN PF 500 UNIT/5 ML DISP.SYRIN. IV ONE (08:47)
[2019-01-02 09:00] VITALS: BP 149/55
[2019-01-02 09:15] VITALS: BP 143/65
--- NOTE | 2019-01-02 09:44 | NUR ---
Discharge Note: BRITT LAMBERT Discharge instructions and discharge home medications reviewed with Patient and a copy given. All questions have been answered and understanding verbalized. The following instructions and handouts were given: Biopsy care and surgical site infection. Discontinued lines and drains: right chest malachi cath deacessed, dressing clean dry intact. Patient discharged to home with via ambulation to private vehicle.
--- NOTE | 2019-01-02 11:51 | RAD ---
Procedure: Ultrasound guided left supraclavicular mass biopsy 01/02/2019 Clinical Indication: 73-year-old female with history of breast cancer, persistent/recurrent left supraclavicular soft tissue mass anesthesia: Local only Sterility: The procedure was performed in its entirety using appropriate elements of sterile technique. Consent: The procedure was explained in its entirety to the patient or the patients designated sales representative marine supplies by a member of the treatment team, including a discussion of the risks, benefits and commonly accepted alternatives to the procedure, as well as the expected consequences of no therapy whatsoever. Discussion of the risks included, but was not limited to, those that are most frequent and those that are rare but possibly severe or life-threatening, as well as the possibility of unforeseen complications. Technique and Findings: Following informed consent, the patient was prepped and draped in usual sterile fashion. 1% lidocaine was used to achieve local anesthesia over the left supraclavicular soft tissue mass. A small dermatotomy was made. Under ultrasound guidance, an 18-gauge needle was advanced into the soft tissue mass and biopsy specimens were obtained and placed in formalin. Hemostasis was achieved with annual compression following removal of the needle. Impression: Ultrasound-guided biopsy of a left supraclavicular mass as described
--- NOTE | 2019-01-03 15:05 | PATHOLOGY ---
[facility] Accession Number: [id number] . 01 Material submitted: . clavicle - CORE BIOPSY SUPRACLAVICULAR MASS . 01 Clinical history: . Supraclavicular mass . 02 Diagnosis: Segments of fibroadipose tissue, supraclavicular mass, needle biopsies: - Hypocellular scar. . (JPM:mml; 01/03/2019) PENDING SALE TO [facility]/01/03/2019 . 02 Comment: The patient has a history of metastatic carcinoma of breast which has previously been treated. Sections of the supraclavicular mass needle biopsy reveal a hypocellular scar containing a few scattered macrophages and plasma cells. There is focal adipose tissue attached to the end of the scar. There is no evidence of metastatic carcinoma. . (JPM:mml; 01/03/2019) . 02 Electronically signed: . Jus Rea MD, Pathologist NPI- [id number] . 01 Gross description: . Received in formalin labeled "Grand, Chastity, supraclavicular mass," and additionally labeled on the requisition as "core BX," are 3 needle cores of dent soft tissue ranging from 1.7-1.9 cm in length and measuring less than 0.1 cm each in diameter. The specimen is submitted entirely in cassettes A1 through A3. (TSD; 01/02/2019) /TOB . 02 Pathologist provided ICD-10: L90.5, Z85.3 . 02 CPT . 959490 Specimen Comment: A courtesy copy of this report has been sent to Specimen Comment: [phone], , . Specimen Comment: Report sent to ,DR FINE / DR DEVINE Performed at: 01 [facility] [address], [place], [place] [id number] MD German Wiggins MD Phone: [phone] Performed at: 02 [facility] [place] [address], [place] [id number] MD Jus Rea MD Phone: [phone]
== END 2019-01-02 09:30 | disposition home or self-care (01) ==
LOC: INTRAD 07:05
PROVIDERS: ATTEND Internal Medicine Hematology & Oncology
DX: M79.89 Other specified soft tissue disorders (principal); Z85.3 Personal history of malignant neoplasm of breast
CPT/HCPCS: 20206; 36415; 76942; 85025; 85610; 88304

== ENCOUNTER → 2019-02-28 | Outpatient (CLI) | payer MEDICARE, OTHER ==
[~2019-02-28] MED LIST changes: -BENA10TA4 PO; +BENA10TA6 PO; +ZOLPIDEM 5 MG TABLET. PO ONE
== END | disposition home or self-care (01) ==
LOC: RT 19:04
PROVIDERS: ATTEND Family Medicine
DX: G47.33 Obstructive sleep apnea (adult) (pediatric) (principal)
CPT/HCPCS: 95810

== ENCOUNTER → 2019-03-23 | Outpatient (CLI) | payer MEDICARE, OTHER ==
[~2019-03-23] MED LIST changes: -ZOLPIDEM 5 MG TABLET. PO ONE
--- NOTE | 2019-03-23 11:29 | RAD ---
CLINICAL HISTORY: Breast cancer INDICATION: Restaging. COMPARISON: None available. TECHNIQUE: Location of scan: [facility] Radiopharmaceutical Dose: 15 mCi F-18 FDG intravenous Blood glucose at time of study: 155 FDG uptake time = 60 minutes. Images were obtained from the mid head to the mid thighs. A low dose, noncontrast CT study was performed for the purpose of attenuation correction and anatomic localization. FINDINGS: Head and Neck: Low-grade FDG uptake is seen in the base of the left neck and left suprascapular region with an SUV max of 2.95. Otherwise physiologic activity within the head and neck. Chest: Low-grade FDG uptake and soft tissue thickening is seen in the left axillary region with an SUV max of 3.1. The uptake within the left apex seen on prior examination has since resolved. Heart is enlarged. Coronary artery calcifications are seen. Linear opacities in the lower lobes likely scarring/atelectasis. Abdomen and Pelvis: Physiologic activity is seen within the renal collecting systems, bowel as well as solid organs including liver. Gastric lap band is seen. Clonic diverticulosis without evidence for acute diverticulitis. Small fat-containing periumbilical hernia. Skeletal: No suspicious osseous focus of increased metabolic activity. Degenerative changes of the spine are seen. Reference SUV Values: Mediastinal SUV Max: 2.90 Liver SUV Max: 4.06 IMPRESSION: 1. The previously seen uptake within the left upper lung has since resolved. 2. Regions of low level FDG uptake in the left axilla and base of the left neck with mild soft tissue thickening may be related to posttreatment change. However recurrence is not entirely excluded and recommend close attention on follow-up. Radiation Dosimetry: The radiopharmaceutical used for this exam delivers approximately 0.7 mSv/mCi (70 mRem/mCi) Source: ICRP Publication 106
== END | disposition home or self-care (01) ==
LOC: PETSC 07:32
PROVIDERS: ATTEND Internal Medicine Hematology & Oncology
DX: C50.812 Malignant neoplasm of overlapping sites of left female breast (principal); J98.4 Other disorders of lung; K42.9 Umbilical hernia without obstruction or gangrene; K57.30 Diverticulosis of large intestine without perforation or abscess without bleeding; I51.7 Cardiomegaly; I25.10 Atherosclerotic heart disease of native coronary artery without angina pectoris; Z17.1 Estrogen receptor negative status [ER-]; Z88.5 Allergy status to narcotic agent; Z88.8 Allergy status to other drugs, medicaments and biological substances
CPT/HCPCS: 78815; A9552

== ENCOUNTER → 2019-09-08 | Outpatient (CLI) | payer MEDICARE, OTHER ==
[~2019-09-08] MED LIST changes: +BENA10TA55 PO; -BENA10TA6 PO; -GLIM2TAB2 PO; +GLIM2TAB7 PO; +OMEP40CA45 PO; -OMEP40CA5 PO
--- NOTE | 2019-09-08 21:01 | RAD ---
EXAM: PET W CT SKULL TO MIDTHIGH EXAM DATE: 09/08/2019 INDICATION: Restaging left breast cancer. RADIOPHARMACEUTICAL: 14.95 mCi of F-18 Fluorodeoxyglucose (FDG) I.V. via the right antecubital fossa. TECHNIQUE: Patient weight: 280 pounds. Following at least four-hour fasting, the patient's blood glucose was 146 mg/dl. Approximately 1 hour after administration of FDG, overlapping emission scanning was performed from the orbital meatal line through the pelvis. A low-dose CT was performed for attenuation correction purposes and anatomic localization. Fused images of PET and CT were reviewed. Any standardized uptake values (SUV) reported are maximum values within a volume region of interest, expressed in gm/ml. COMPARISON: PET CT scan of 03/23/2019 FINDINGS: PET: There is diffuse increased background activity on this examination. This may limit accuracy of comparison between the current and prior examination. Reference background activity on this examination in the mediastinum measures 2.59 Max SUV and in the liver, max SUV 3.53. The asymmetric uptake in the left neck persists with activity within the muscle belly of the left levator scapulae, showing a max SUV of 4.44, representing an increase from 2.95 as reported on the previous examination (prior background activity in the mediastinum reported at 2.9 Max SUV and in the liver, 4.06 Max SUV). No convincing abnormal activity in the bones. There is relative paucity of activity in the lower thoracic/upper lumbar spine between T11 and L1. CT: Left mastectomy with soft tissue scarring in the left axilla and left supraclavicular soft tissues are again evident. Right chest port remains in place. The heart is mildly enlarged. There is respiratory motion artifact that degrades evaluation of the lungs. No dominant lung mass and no pleural effusion is evident. Laparoscopic gastric banding surgical changes are present. Dense calcifications in the abdominal aorta without aneurysmal dilation. IMPRESSION: Persistent with slight interval increase in asymmetric uptake in the lower left neck soft tissues, still possibly reflecting posttreatment changes. Cannot however exclude slow progression in recurrent disease at this site. Correlate clinically with continued attention on follow-up. Otherwise, no abnormal FDG activity suspicious for metabolically active disease. Electronically signed by: Nura Washington MD (09/08/2019 8:58 PM) [id number]
== END | disposition home or self-care (01) ==
LOC: PETSC 07:34
PROVIDERS: ATTEND Internal Medicine Hematology & Oncology
DX: C50.812 Malignant neoplasm of overlapping sites of left female breast (principal); I70.0 Atherosclerosis of aorta; I51.7 Cardiomegaly; Z17.1 Estrogen receptor negative status [ER-]
CPT/HCPCS: 78815; A9552

== ENCOUNTER → 2019-12-01 | Outpatient (CLI) | payer MEDICARE, OTHER ==
--- NOTE | 2019-12-01 10:07 | RAD ---
CLINICAL HISTORY: Breast cancer, restaging COMPARISON: 09/08/2019, 03/23/2019 TECHNIQUE: Location of scan: [facility] Dose: 15.74 mCi F-18 FDG intravenous Blood glucose at time of study: 125 FDG uptake time = 60 minutes. Images were obtained from the mid head to the mid thighs. A low dose, noncontrast CT study was performed for the purpose of attenuation correction and anatomic localization. FINDINGS: Head and Neck: Atherosclerotic calcifications of the intracranial internal carotid arteries is seen. A right submandibular lymph node measures 2.2 x 1 cm with an SUV max of 7.5. Chest: Amorphous soft tissue density in the region of the left axilla as well as the left supraclavicular and infraclavicular region with low-level increased FDG uptake, mildly improved, SUV max measures 3.1 on today's examination without discrete superimposed nodular hypermetabolic focus. Mild, likely physiologic, activity is also seen in the parapharyngeal soft tissues. Right port tip terminates within the distal SVC. Coronary artery calcifications are seen. Heart is not enlarged. Changes of left mastectomy are seen. Linear and patchy dependent opacities in the lower lobes likely scarring/atelectasis. No dominant lung mass is identified. Abdomen and Pelvis: Physiologic activity is seen within the liver, solid organs, renal collecting systems as well as the colon. No suspicious hypermetabolic focus is seen. Changes of gastric lap band are seen. Colonic diverticula are seen. No evidence for acute diverticulitis. Dense aortic calcifications are noted. Skeletal: Bilateral shoulder joint degenerative changes are seen. Multilevel degenerative changes of the spine are noted. No suspicious hypermetabolic focus seen within the osseous structures. Reference SUV Values: Mediastinal SUV Max: 3 Liver SUV Max: 3.9 IMPRESSION: 1. There is a new, mildly enlarged and hypermetabolic right submandibular lymph node with an SUV max of 7.5. Although infectious/inflammatory process is a consideration, given history of malignancy, metastatic disease is a primary consideration and can be further assessed by biopsy/FNA if clinically indicated. 2. Amorphous soft tissue density at the base of the left neck extending into the left axilla likely represents posttreatment change with interval decrease in FDG activity. Radiation Dosimetry: The radiopharmaceutical used for this exam delivers approximately 0.7 mSv/mCi (70 mRem/mCi) Source: ICRP Publication 106 Electronically signed by: Kirk Vasquez MD (12/01/2019 10:04 AM) [id number]
== END | disposition home or self-care (01) ==
LOC: PETSC 07:44
PROVIDERS: ATTEND Internal Medicine Hematology & Oncology
DX: C50.812 Malignant neoplasm of overlapping sites of left female breast (principal); I25.10 Atherosclerotic heart disease of native coronary artery without angina pectoris; K57.30 Diverticulosis of large intestine without perforation or abscess without bleeding; N62 Hypertrophy of breast; M85.88 Other specified disorders of bone density and structure, other site; Z90.12 Acquired absence of left breast and nipple
CPT/HCPCS: 78815; A9552

== ENCOUNTER 2019-12-25 07:48 | Outpatient (CLI) | payer MEDICARE, OTHER ==
[~2019-12-25] VITALS: Ht 160 cm; Wt 131.5 kg
[2019-12-25] VITALS (9 sets, daily range): BP systolic 127–160; BP diastolic 59–77
[2019-12-25 08:18] LABS: BASO # 0.1 x10^3/uL (0.0-0.2); BASO % 2 % (0-3); EOS # 0.9 x10^3/uL (0.0-0.7); EOS % 9 % (0-3); HEMATOCRIT 39.3 % (36.0-47.0); LYMPH # 1.9 x10^3/uL (1.0-4.8); LYMPH % 19 % (24-48); MEAN CORPUSCULAR HEMOGLOBIN 30 pg (25-35); MEAN CORPUSCULAR HGB CONC 33 g/dL (31-37); MEAN CORPUSCULAR VOLUME 91 fL (79-100); MONO # 0.6 x10^3/uL (0.0-1.1); MONO % 7 % (0-9); NEUT # 6.2 x10^3/uL (1.8-7.7); NEUT % 64 % (31-73); PLATELET COUNT 296 x10^3/uL (140-400); RED CELL DISTRIBUTION WIDTH 15.4 % (11.5-14.5); WHITE BLOOD COUNT 9.7 x10^3/uL (4.0-11.0)
[2019-12-25 08:59] LABS: PROTHROMBIN TIME PATIENT 12.8 SEC (11.7-14.0)
[2019-12-25] MEDS ORDERED: LIDOCAINE WITH 8.4% SOD BICARB 3 ML DISP.SYRIN. ONE (09:08)
[2019-12-25] MEDS ORDERED: MIDAZOLAM HCL/PF 2 MG/2 ML VIAL. ONE (09:32)
[2019-12-25] MEDS ORDERED: fentaNYL PF VIAL 100 MCG/2 ML VIAL ONE (09:33)
[2019-12-25] MEDS ORDERED: fentaNYL PF VIAL 100 MCG/2 ML VIAL IV ONE (10:00)
[2019-12-25] MEDS ORDERED: LIDOCAINE WITH 8.4% SOD BICARB 3 ML DISP.SYRIN. IJ ONE (10:00)
[2019-12-25] MEDS ORDERED: MIDAZOLAM HCL/PF 2 MG/2 ML VIAL. IV ONE (10:00)
--- NOTE | 2019-12-25 10:59 | NUR ---
Discharge Note: BRITT LAMBERT Discharge instructions and discharge home medications reviewed with Patient and a copy given. All questions have been answered and understanding verbalized. The following instructions and handouts were given: incision care and adult moderate sedation Discontinued lines and drains: Port A Cath intact and bandaid applied. Patient discharged to Home or Self Care withSpousevia Wheelchair
--- NOTE | 2019-12-26 13:40 | RAD ---
Fine-needle aspiration, right submandibular lymph node 12/25/2019 INDICATION: PET positive submandibular lymph node. History of breast cancer. Discussion: 12/26/2019 11:35 AM Procedure: Clinical Indication: Right Submandibular Lymph node Biopsy Discussion: The procedure was explained in its entirety to the patient or the patients designated market survey representative by a member of the treatment team, including a discussion of the risks, benefits and commonly accepted alternatives to the procedure, as well as the expected consequences of no therapy whatsoever. Discussion of the risks included, but was not limited to, those that are most frequent and those that are rare but possibly severe or life-threatening, as well as the possibility of unforeseen complications. All elements of maximal sterile barrier technique including the use of a cap, mask, sterile gown, sterile gloves, large sterile sheet, appropriate hand hygiene, and 2% chlorhexidine for cutaneous antisepsis (or acceptable alternative antiseptic per current guidelines) were followed for this procedure. 1% lidocaine was administered for local anesthesia. Ultrasound evaluation demonstrates a rounded lymph node in the submandibular region correlating to the lesion seen on prior PET/CT. Fine-needle aspiration was performed in 2 passes with a 25-gauge needle, as well as 2 passes with a Rotex needle. One 20-gauge core biopsy was performed, with only minimal material was yielded. Samples were delivered to pathology was present at the time of procedure. Manual pressure was held. No immediate complications were identified. The procedures performed under conscious sedation including continuous cardiopulmonary monitoring via dedicated sedation nurse. [id number] sedation time: 15 minutes Impression: Ultrasound-guided, Fine-needle aspiration, right submandibular lymph node.
--- NOTE | 2019-12-26 15:07 | PATHOLOGY ---
[facility] Accession Number: [id number] . 01 Material submitted: . lymph node - RIGHT SUBMANDIBULAR LYMPH NODE. Modifiers: right . 01 Clinical history: . None provided . 02 Diagnosis: Right submandibular lymph node needle biopsy: - Tissue insufficient for diagnosis. See comment. ([facility] 12/26/2019) [facility] 12/26/2019 0930 Local . 02 Comment: Several levels are examined. No tissue is identified. The specimen apparently did not survive processing. ([facility] 12/26/2019) . 02 Electronically signed: . Jus Rea MD, Pathologist NPI- [id number] . 01 Gross description: . The specimen is received in formalin, labeled "Chastity Doherty, lymph node right submandibular". Received is a single needle core of pale dent soft tissue measuring 0.5 cm in length by 0.1 cm in diameter. The specimen is submitted entirely in cassette A1. ([facility]; 12/25/2019) QA/QA 12/25/2019 1621 Local . 02 Pathologist provided ICD-10: Z03.89 . 02 CPT . 340593 Specimen Comment: A courtesy copy of this report has been sent to [phone] Specimen Comment: [phone], Specimen Comment: Report sent to ,DR FINE / DR DEVINE Specimen Comment: A duplicate report has been generated due to demographic updates. Performed at: 01 [facility] [address], [place], [place] [id number] MD eGrman Wiggins MD Phone: [phone] Performed at: 02 [facility] [address] [place], [place] [id number] MD Jus Rea MD Phone: [phone]
--- NOTE | 2019-12-26 17:06 | PATHOLOGY ---
Note [facility] Accession Number: [id number] TESTS RESULT FLAG UNITS REF RANGE LAB Clinician Provided Cytology Information No. of containers..01 Other (Miscellaneous) Source: [A] [address] DIAGNOSIS: [A] [address] POSITIVE FOR MALIGNANT CELLS. CLUSTERS OF MALIGNANT CELLS HAVING CELLULAR FEATURES OF METASTATIC CARCINOMA ARE PRESENT. Signed out by: 02 Jus Rea MD, Pathologist NPI- [id number] Performed by: Lawrence Restrepo, Telephone Quotation Clerk ([facility]) Gross description: 01 30ML, CLEAR COLORLESS, 3F 2AD 3HE /LCS 12/25/2019 1700 Local FLAG LEGEND: L-Low Normal,H-High Normal,LL-Alert Low,HH-Alert High <-Panic Low,>-Panic High,A-Abnormal,AA-Critical Abnormal Performed at: 01 [facility] [address] [place] [address] German Wiggins MD, 02 [facility] [address] [place] [address] Jus Rea MD, Specimen Comment: A courtesy copy of this report has been sent to [phone], [phone] Specimen Comment: [phone], Specimen Comment: Report sent to ,DR DEVINE / DR FINE Specimen Comment: A duplicate report has been generated due to demographic updates. Performed at: 01 [facility] [address], [place], [place] [id number] MD German Wiggins MD Phone: [phone]
== END 2019-12-25 11:02 | disposition home or self-care (01) ==
LOC: INTRAD 07:48
PROVIDERS: ATTEND Internal Medicine Hematology & Oncology
DX: R59.1 Generalized enlarged lymph nodes (principal); C77.0 Secondary and unspecified malignant neoplasm of lymph nodes of head, face and neck; C50.911 Malignant neoplasm of unspecified site of right female breast; Z79.01 Long term (current) use of anticoagulants
CPT/HCPCS: 10005; 36415; 38505; 76942; 85025; 85610; 85730; 99152; J2250; J3010; J3490; 88300